=== PATIENT | female | born 1975 | race Caucasian/White ===

== ENCOUNTER 2020-12-29 09:09 | Emergency (ER) | payer SELFPAY ==
--- NOTE | ~2020-12-29 | CT_ITS ---
EXAMINATION: CT abdomen pelvis wo con EXAM DATE: 12/29/2020 10:02 INDICATION: Right flank pain. TECHNIQUE: Spiral CT of the abdomen and pelvis was performed without contrast. Axial, coronal and sag ittal images were reviewed. The dose-length product (DLP) for this examination was 200.36 mGy-cm. T he exposure was tailored according to patient size (auto mA exposure control), and iterative reconstr uction (ASIR) was used as additional dose reduction technique. Comparison is made to prior examinatio n from 07/28/2019. FINDINGS: There is no nephrolithiasis or hydronephrosis. The uterus is unremarkable. The bladder is undistended at time of imaging. The liver, spleen, adrenal glands and pancreas are unremarkable. There are cholecystectomy clips. There is no retroperitoneal or pelvic lymphadenopathy. The appendix is not positively visualized. There is no pericecal inflammatory change to suggest appe ndicitis. The stomach and small bowel are unremarkable. There is expected amount of colonic stool. No free intraperitoneal gas. Small pericardial effusion. The lung bases are unremarkable. Righ t acetabular bone island unchanged. IMPRESSION: 1. No nephrolithiasis, hydronephrosis or acute intra-abdominal findings. 2. Small pericardial effusion. Reviewed, dictated and finalized at location [facility]
[2020-12-29 09:16] VITALS: BP 136/86; PULSE 87; RESP 24; TEMP 36.8; O2SAT 100
[2020-12-29 09:37] LABS: Add Urine Microscopic? YES; Appearance Urine Cloudy (Clear); Bacteria Urine Trace /hpf; Bilirubin Urine Negative (Negative); Blood Urine 3+ (Negative); Color Urine Yellow (Yellow); Glucose Urine UA Negative (Negative); Ketones Urine Negative (Negative); Leukocyte Esterase Ur Trace LEU/UL (Negative); Mucus Urine Heavy /lpf; Nitrate Urine Negative (Negative); Protein Urine 2+ mg/dL (Negative); RBC Urine >75 /hpf (0-2); Specific Grav Ur 1.028 (1.001-1.035); Squamous Epithelial Cell Urine Few /hpf (Few); Urobilinogen Urine Negative mg/dL (<2.0)
[2020-12-29] MEDS: MORPHINE SULFATE (*CRX) 2 MG/ML INJ IV PUSH (09:46)
[2020-12-29 09:47] LABS: Basophils Percent Auto 0.5 % (0.2-1.2); Eosinophils Percent Auto 0.4 % (0-4.4); Hematocrit 40.1 % (37.0-47.0); Hemoglobin 13.3 g/dL (12.0-15.0); Immature Granulocyte Absolute 0.03 K/mm3 (0.00-0.031); Immature Granulocyte Percent A 0.5 % (0-0.5); Lymphocytes Absolute Auto 1.12 K/mm3 (0.9-3.2); Lymphocytes Percent Auto 20.3 % (18.3-44.2); Mean Corpuscular HGB Conc 33.2 g/dl (32-36); Mean Corpuscular Hemoglobin 30.6 pg (26-34); Mean Corpuscular Volume 92.4 fl (80-100); Mean Platelet Volume 9.5 fl (7.4-10.4); Monocytes Absolute Auto 0.3 K/mm3 (0.1-0.6); Monocytes Percent Auto 5.1 % (2.6-8.5); Neutrophils Absolute Auto 4.1 K/mm3 (1.3-6.7); Neutrophils Percent Auto 73.2 % (45.5-73.1); Platelet Count Result 222 k/mm3 (150-375); Red Blood Count 4.34 M/mm3 (4.2-5.4); Red Cell Distribution Width 12.1 % (11.5-14.5); White Blood Count 5.5 K/mm3 (4.5-10.0)
--- NOTE | 2020-12-29 09:50 | PC.NURSE ---
Addendum entered by Keyona Wheat RN 12/29/20 09:52: Instructed pt to get into BED (bad is misspelling) Original Note: Pt refuses IV Tylenol, states I dont like the way that stuff makes me feel. 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 This RN explained Tylenol was for pain and Morphine was also ordered for pt. Pt states I will take the Morphine, not the Tylenol. This RN instructed pt to get in bad as Morphine causes a fall risk due to side effects of narcotic pain medication. Pt states It feels better to stand, are you telling me I have to suffer? This RN reassured pt the medicine is for pain and that she would need to get into the stretcher to receive medication due to fall risk. Pt onto stretcher, states You just need to do something to make me feel better.
[2020-12-29 09:57] LABS: Alanine Aminotransferase 15 U/L (4-35); Albumin Level 4.4 g/dL (3.5-5.1); Alkaline Phosphatase 53 U/L (38-126); Anion Gap 5 mmol/L (8-16); Aspartate Amino Transferase 21 U/L (14-36); Bilirubin,Total 0.3 mg/dL (0.2-1.3); Blood Urea Nitrogen 15 mg/dL (7-17); Calcium 9.2 mg/dL (8.4-10.2); Carbon Dioxide 29 mmol/L (22-30); Chloride 106 mmol/L (98-107); Estimated CRCL calculation 74 ml/min; Estimated Glomerular Filt Rate > 60; Glucose 172 mg/dL (65-105); Lipase 76 U/L (23-300); Potassium 3.8 mmol/L (3.4-5.0); Sodium 140 mmol/L (137-145)
--- NOTE | 2020-12-29 10:40 | ED.GENADULT ---
HPI - General Adult General Chief complaint: Back Pain/Injury Stated complaint: right flank pain x 2 days Time Seen by Provider: 12/29/20 09:19 Source: patient Mode of arrival: ambulatory Limitations: no limitations History of Present Illness HPI narrative: Patient presents with chief complaint of right flank pain that began 2 days ago it became excruciating approximately 1 hour prior to arrival. Patient states she has had is a history of kidney stones which last presented approximately 1 to 2 years ago and required stenting. Patient has not seen a urologist in this area. Patient states that she noticed blood in her urine. Patient denies fever, chills, vomiting or inability to urinate. She denies any concern for STDs. Patient denies any vaginal discharge or bleeding. Related Data Home Medications Medication Instructions Recorded Confirmed albuterol sulfate INHALATION 12/29/20 alprazolam PRN 12/29/20 Allergies Allergy/AdvReac Type Severity Reaction Status Date / Time ketorolac Allergy Severe Stopped Verified 12/29/20 09:22 Breathing metoclopramide Allergy Mild Hives / Verified 12/29/20 09:22 Red Face ondansetron Allergy Mild Hives / Verified 12/29/20 09:22 Red Face aspirin Allergy Unknown Hives Verified 12/29/20 09:22 NSAIDS (Non-Steroidal Allergy Swelling Verified 12/29/20 09:22 Anti-Inflamma of Lip/Tongue/Throat Review of Systems Review of Systems: Narrative: CONSTITUTIONAL: Denies fever, chills, or sweats. EYES: Denies visual changes, redness, or discharge. ENT: Denies rhinorrhea, congestion, sore throat, or otalgia. CARDIOVASCULAR: Denies chest pain, palpitations, or edema. RESPIRATORY: Denies cough or dyspnea. GASTROINTESTINAL: Reports right flank pain, nausea, vomiting, denies diarrhea. GENITOURINARY: Denies dysuria or hematuria. SKIN: Denies rash or itching. MUSCULOSKELETAL: Denies back pain, joint pain, or myalgia. NEUROLOGIC: Denies headache, numbness, dizziness, or weakness. PSYCHIATRIC: Denies anxiety or depression. PMFSH Social History Social History Gender identity (if verbalized by the patient): Female Exam Narrative: Exam Narrative: GENERAL: Well-appearing, well-nourished. Patient writhing around unable to lay down for cooperation with full physical exam. HEAD: Normocephalic, atraumatic. EYES: PERRLA and EOMI. CHEST: Clear to auscultation. No respiratory distress. No wheezes rales or rhonchi HEART: Regular rate and rhythm. ABDOMEN: Right CVA tenderness. soft, nondistended, normal active bowel sounds. Unable to fully palpate quadrants due to patient's writhing. EXTREMITIES: Normal range of motion. No edema. SKIN: Warm, dry, no rash. NEURO: No focal deficits. Alert and oriented x3. PSYCH: Anxious. Course Vital Signs Vital signs: Vital Signs Temperature 98.3 F 12/29/20 09:16 Pulse Rate 87 12/29/20 09:16 Respiratory Rate 24 H 12/29/20 09:16 Blood Pressure 136/86 12/29/20 09:16 Pulse Oximetry 100 12/29/20 09:16 Temperature 98.3 F 12/29/20 09:16 Pulse Rate 91 12/29/20 10:56 Respiratory Rate 22 H 12/29/20 10:56 Blood Pressure 124/88 12/29/20 10:56 Pulse Oximetry 98 12/29/20 10:56 Medical Decision Making MDM Narrative Medical decision making narrative: Patient is lab work and CT has come back negative for findings of kidney stone or other intra-abdominal etiology. Patient has some soft findings of bacteria and blood in the urine. Patient will be placed on Macrobid and instructed to follow-up with primary care for reevaluation. Patient is wanting more pain medications. She has already been given morphine as she states she has a ride home. Patient declined Tylenol stating that it will not work and says she cannot tolerate any NSAIDs. I do not have indication to give patient stronger narcotics. Patient is not happy about this. Discussed with patient the need to take antibiotics and follow-up with primary care. Differential D
--- NOTE | 2020-12-29 10:47 | PC.NURSE ---
While standing in the hallway this RN hears pt call out to the nurses station, stating im not getting the care that I deserve so im gonna go somewhere else. This RN let her know that her nurse was in with another pt she states i don't care, im hurting I stated ma'am you refused medication that your nurse offered you earlier. she states im not talking to you
[2020-12-29 10:56] VITALS: BP 124/88; PULSE 91; RESP 22; O2SAT 98
== END 2020-12-29 10:57 | disposition home or self-care (01) ==
PROVIDERS: Emergency Provider Emergency Medicine
DX: R10.9 Unspecified abdominal pain (principal); R30.0 Dysuria; Z87.442 Personal history of urinary calculi
CPT/HCPCS: 36415; 74176; 80053; 81001; 83690; 85025; 87086; 96374; 99284; J2270

== ENCOUNTER 2021-02-17 11:14 | Emergency (ER) | payer OTHER, SELFPAY ==
[2021-02-17 11:15] VITALS: BP 145/101; PULSE 53; RESP 17; TEMP 36.7; O2SAT 97
--- NOTE | 2021-02-17 11:15 | ED.ABDPAIN ---
HPI - Abdominal Pain General Chief Complaint: Back Pain/Injury Stated Complaint: abdomen pain Time Seen by Provider: 02/17/21 11:15 Source: patient and RN notes reviewed Mode of arrival: ambulatory Limitations: no limitations History of Present Illness HPI narrative: Patient states that she began having abdominal pain 3 hours ago. She says that she is highly allergic to Toradol Zofran and Reglan. She also states she has a very high tolerance to morphine so it takes a lot of morphine to get her pain under control. She says her pain is in the right lower quadrant she thinks she has a kidney stone. MD elicited complaint: abdominal pain Pertinent past history: none Onset (ago): hour(s) (3) Pain Consistency: constant Location: RLQ Severity: severe Quality: cramping and stabbing Radiation: none Migration to: no migration Exacerbating factors: movement Relieving factors: nothing Associated symptoms: nausea, vomiting and chills Related Data Home Medications Medication Instructions Recorded Confirmed albuterol sulfate INHALATION 12/29/20 alprazolam PRN 12/29/20 dextroamphetamine-amphetamine 30 mg PO DAILY 02/17/21 02/17/21 [Adderall] Allergies Allergy/AdvReac Type Severity Reaction Status Date / Time ketorolac Allergy Severe Stopped Verified 12/29/20 09:22 Breathing metoclopramide Allergy Mild Hives / Verified 12/29/20 09:22 Red Face ondansetron Allergy Mild Hives / Verified 12/29/20 09:22 Red Face aspirin Allergy Unknown Hives Verified 12/29/20 09:22 NSAIDS (Non-Steroidal Allergy Swelling Verified 12/29/20 09:22 Anti-Inflamma of Lip/Tongue/Throat Review of Systems Review of Systems: All systems reviewed & are unremarkable except as noted in HPI and below PMFSH Past Medical History Medical History (Updated 02/17/21 @ 11:51 by Nemesio Rouse MD) ADHD Asthma Kidney stones PTSD (post-traumatic stress disorder) Surgical History Surgical History (Updated 02/17/21 @ 11:47 by Nemesio Rouse MD) H/O bilateral oophorectomy History of appendectomy Hx of cholecystectomy Social History Social History (Updated 02/17/21 @ 11:47 by Nemesio Rouse MD) Smoking packs per day: 0.5 Smoking cigarettes per day: 10.0 Smoking status: Current every day smoker Tobacco type: cigarettes Alcohol intake: never Substance use: current Substance use type: marijuana Other substance usage details: occasional denies any other substance Gender identity (if verbalized by the patient): Female Exam Const: General: no acute distress Nutritional Appearance: well nourished Orientation/consciousness: patient oriented x3 HENMT: Head: normal to inspection Ears: external ears normal Eyes: Conjunctivae: conjunctivae normal Pupils: Equal, round and reactive pupils present EOM: EOMs intact bilaterally Neck: Neck: normal visual inspection and no lymphadenopathy Resp: Effort & Inspection: normal respiratory effort Auscultation: clear to auscultation bilaterally Cardio: Rate: regular rate Rhythm: regular rhythm GI: GI Palp: Yes Soft to palpation, Yes Tenderness to palpation present (GI) ( RLQ moderate), Yes Guarding due to palpation present (GI) and No Rebound tenderness present Auscultation: normal bowel sounds Back/Spine/Pelvis: Cervical Spine: cervical ROM normal Thoracic/Lumbar Spine: thoraco-lumbar ROM normal Skin: General skin exam: normal color Rashes: no rashes Neuro: General: patient oriented x3, moves all extremities, no meningeal signs and no focal motor deficits Speech: normal speech Gait exam (Neuro): Normal gait present Extrem: General: normal to inspection, no clubbing, cyanosis or edema and no pedal edema Psych: Appearance: grossly normal and well kempt Mental Status: mental status grossly normal Affect: normal affect Attitude: cooperative Thought content: Yes Normal thought content present Course Course Emergency Course: I explained to the patient nancy
[2021-02-17 11:48] LABS: Basophils Absolute Auto 0.04 K/mm3 (0.00-0.10); Basophils Percent Auto 0.7 % (0.0-1.0); Eosinophils Percent Auto 1.9 % (1.0-6.0); Hematocrit 38.8 % (35.0-49.0); Hemoglobin 12.8 g/dL (12.0-15.0); Immature Granulocyte Absolute 0.01 K/mm3 (0.00-0.00); Immature Granulocyte Percent A 0.2 % (0.0-0.0); Lymphocytes Absolute Auto 2.07 K/mm3 (1.10-4.50); Lymphocytes Percent Auto 38.8 % (18.0-42.0); Mean Corpuscular Hemoglobin 30.3 pg (27.0-31.0); Mean Corpuscular Volume 91.9 fL (78.0-102.0); Mean Platelet Volume 9.3 fl (9.2-11.8); Monocytes Absolute Auto 0.41 K/mm3 (0.10-0.90); Monocytes Percent Auto 7.7 % (2.0-11.0); Neutrophils Absolute Auto 2.7 K/mm3 (1.7-7.2); Neutrophils Percent Auto 50.7 % (50.0-70.0); Platelet Count Result 241 K/mm3 (150-420); Red Blood Count 4.22 M/mm3 (4.20-5.40); Red Cell Distribution Width 12.1 % (11.6-14.4); White Blood Count 5.3 K/mm3 (4.8-10.8)
[2021-02-17 11:52] LABS: Add Urine Microscopic? YES; Appearance Urine Sl Cloudy (Clear); Bilirubin Urine Negative (Negative); Blood Urine 3+ (Negative); Color Urine Red (Yellow); Glucose Urine UA Negative (Negative); Ketones Urine Negative (Negative); Leukocyte Esterase Ur Trace LEU/UL (Negative); Nitrate Urine Negative (Negative); Protein Urine 1+ (Negative); Specific Grav Ur 1.015 (1.010-1.020); Urobilinogen Urine 0.2 mg/dL (0.2-1.0); pH Urine 5.5 (5.0-8.0)
[2021-02-17 11:55] LABS: Bacteria Urine Trace /hpf; RBC Urine >75 /hpf (0-2); Squamous Epithelial Cell Urine Rare /hpf (Few); WBC Urine None seen /hpf (0-3)
[2021-02-17 11:57] LABS: Alanine Aminotransferase 40 U/L (14-59); Albumin Level 4.1 g/dL (3.4-5.0); Alkaline Phosphatase 78 U/L (46-116); Anion Gap 7 mmol/L (8-16); Aspartate Amino Transferase 32 U/L (15-37); Bilirubin,Total 0.4 mg/dL (0.00-1.00); Blood Urea Nitrogen 13 mg/dL (7-18); Calcium 9.4 mg/dL (8.5-10.1); Carbon Dioxide 28 mmol/L (21-32); Chloride 101 mmol/L (98-108); Estimated Glomerular Filt Rate > 60; Glucose 91 mg/dL (70-99); Osmolality Calculated 282 mOsm/kg (285-295); Sodium 136 mmol/L (136-145)
[2021-02-17 12:00] LABS: Amphetamine Screen Urine Positive (Negative); Barbiturate Screen Urine Negative (Negative); Benzodiazepines Screen Urine Positive (Negative); Cannabinoid Screen Urine Positive (Negative); Cocaine Screen Urine Negative (Negative); Methadone Screen Urine Negative (Negative); Opiate Screen Urine Positive (Negative); Phencyclidine Screen Urine Negative (Negative)
[2021-02-17 12:01] LABS: CRP < 0.5 mg/dL (0.0-0.9)
== END 2021-02-17 11:40 | disposition left against medical advice (07) ==
PROVIDERS: Emergency Provider Emergency Medicine
DX: R10.31 Right lower quadrant pain (principal); Z79.899 Other long term (current) drug therapy
CPT/HCPCS: 36415; 80053; 80307; 81001; 85025; 86140; 99282; 99283

== ENCOUNTER 2021-02-17 12:17 | Emergency (ER) | payer OTHER, SELFPAY | END 2021-02-17 12:20 | disposition left against medical advice (07) | LOC: ANHED 12:24 | DX: Z53.21 Procedure and treatment not carried out due to patient leaving prior to being seen by health care provider (principal) | CPT/HCPCS: 99199 ==

== ENCOUNTER 2021-07-10 08:55 | Emergency (ER) | payer SELFPAY ==
--- NOTE | ~2021-07-10 | CT_ITS ---
EXAMINATION: CT abdomen pelvis wo con DATE: 07/10/2021 10:44 INDICATION: Right flank pain TECHNIQUE: Computed tomography (CT) of the abdomen and pelvis was performed without intravenous contr ast. The dose-length product (DLP) was 277.50 mGy-cm. Automated exposure control and iterative recons truction technique were employed. COMPARISON: 12/29/2020 FINDINGS: Minimal dependent atelectasis is present in the lung bases. The heart size is normal. The g allbladder is surgically absent. The liver, spleen, pancreas, and adrenal glands are normal. The kidn eys are unremarkable. No stones are identified in the kidneys, ureters, or bladder. There is no hydro nephrosis or hydroureter. No pathologically enlarged abdominal or pelvic lymph nodes are identified. There is no free intraperitoneal gas or evidence of bowel obstruction. The appendix is not definitely visualized. A small amount of free fluid in the pelvis is likely physiologic. IMPRESSION: 1. No CT correlate for the patient's symptoms. Reviewed, dictated and finalized at location A.
[2021-07-10 09:33] VITALS: BP 136/76; PULSE 79; RESP 18; TEMP 36.3; O2SAT 97
--- NOTE | 2021-07-10 09:35 | ED.GENADULT ---
HPI - General Adult General Chief complaint: Back Pain/Injury Stated complaint: THINKS SHE HAS KIDNEY STONES Source: patient Mode of arrival: ambulatory Limitations: no limitations History of Present Illness HPI narrative: Vanessa is a 45F with a PMH of ADHD, Asthma, PTSD, and kidney stones (some requiring lithotripsy), anaphylaxis to NSAIDS and zofran, and a history of leaving AMA when refused pain meds. She reported right sided flank pain radiating to her RLQ. It started a few hours ago. It is associated with nausea and a couple episodes of non-bloody vomiting. She denies CP, SOB, lightheadedness, diarrhea and constipation. Related Data Home Medications Medication Instructions Recorded Confirmed albuterol sulfate 1 puff INHALATION QID 12/29/20 07/10/21 alprazolam 1 mg PO TID PRN 12/29/20 07/10/21 Allergies Allergy/AdvReac Type Severity Reaction Status Date / Time ketorolac Allergy Severe Stopped Verified 12/29/20 09:22 Breathing metoclopramide Allergy Mild Hives / Verified 12/29/20 09:22 Red Face ondansetron Allergy Mild Hives / Verified 12/29/20 09:22 Red Face aspirin Allergy Unknown Hives Verified 12/29/20 09:22 NSAIDS (Non-Steroidal Allergy Swelling Verified 12/29/20 09:22 Anti-Inflamma of Lip/Tongue/Throat Review of Systems Constitutional: Constitutional: Denies chills and Denies fever(s) Eyes: Eyes: Reports no additional eye complaints ENT: Reports system reviewed and no additional complaints, except as documented Cardiovascular: Cardiovascular: Reports no additional cardiovascular complaints Respiratory: Respiratory: Reports no additional respiratory complaints Gastrointestinal: Gastrointestinal: Reports as per HPI Genitourinary: Genitourinary: Reports no additional female genitourinary complaints Musculoskeletal: Musculoskeletal: Reports no additional musculoskeletal complaints Integumentary/Breasts: Skin/Breast: Reports system reviewed and no additional complaints, except as docu Neurologic: Reports system reviewed and no additional complaints, except as documented Psychiatric: Psychiatric: Reports no additional psychiatric complaints Endocrine: Endocrine: Reports no additional endocrine complaints Hematologic/Lymphatic: Hematologic/Lymphatic: Reports no additional hematologic/lymphatic complaints Allergic/Immunologic: Allergic/Immunologic: Reports no additional allergic/immunologic complaints [facility] Past Medical History Medical History ADHD Asthma Kidney stones PTSD (post-traumatic stress disorder) Surgical History Surgical History H/O bilateral oophorectomy History of appendectomy Hx of cholecystectomy Social History Social History Smoking packs per day: 0.5 Smoking cigarettes per day: 10.0 Smoking status: Current every day smoker Tobacco type: cigarettes Alcohol intake: never Substance use: current Substance use type: marijuana Other substance usage details: occasional denies any other substance Gender identity (if verbalized by the patient): Female Exam Const: General: no acute distress and alert Orientation/consciousness: patient oriented x3 Limitations: No altered mental status HENMT: Head: normal to inspection Other: normocephalic, atraumatic Eyes: Conjunctivae: conjunctivae normal Pupils: Equal, round and reactive pupils present Neck: Neck: normal visual inspection Chest: Chest palpation & inspection: normal inspection of the chest Resp: Effort & Inspection: normal respiratory effort, not labored and not tachypneic Auscultation: clear to auscultation bilaterally Cardio: Rate: regular rate Rhythm: regular rhythm GI: Inspection: non-distended GI Palp: Yes Soft to palpation, No Tenderness to palpation present (GI) and No Guarding due to palpation prese
[2021-07-10] MEDS: diphenhydrAMINE HCl INJ 50 MG/ML VIAL IV PUSH (09:50)
--- NOTE | 2021-07-10 09:55 | PC.NURSE ---
PT REFUSES PAIN MEDICATION AND STATES IT DOES NOT WORK BECAUSE SHE HAS HAD IT BEFORE. PT REQUESTING SOMETHING DIFFERENT FOR PAIN. EDP AWARE.
[2021-07-10 10:01] LABS: Hematocrit 40.1 % (35.0-49.0); Hemoglobin 12.8 g/dL (12.0-15.0); Mean Corpuscular HGB Conc 31.9 g/dL (32.0-36.0); Mean Corpuscular Hemoglobin 30.3 pg (27.0-31.0); Mean Corpuscular Volume 94.8 fL (78.0-102.0); Mean Platelet Volume 8.9 fl (9.2-11.8); Platelet Count Result 245 K/mm3 (150-420); Red Blood Count 4.23 M/mm3 (4.20-5.40); White Blood Count 3.9 K/mm3 (4.8-10.8)
--- NOTE | 2021-07-10 10:07 | PC.NURSE ---
Pt to nurses desk stating the she is not going to be able to lay down for a cat scan until we give her something else for pain.
[2021-07-10 10:08] LABS: Add Urine Microscopic? YES; Appearance Urine Cloudy (Clear); Bilirubin Urine Negative (Negative); Blood Urine 3+ (Negative); Color Urine Red (Yellow); Glucose Urine UA Negative (Negative); Ketones Urine Negative (Negative); Leukocyte Esterase Ur Negative (Negative); Nitrate Urine Negative (Negative); Protein Urine 1+ (Negative); Specific Grav Ur 1.025 (1.010-1.020); Urobilinogen Urine 0.2 mg/dL (0.2-1.0); pH Urine 6.5 (5.0-8.0)
[2021-07-10 10:14] LABS: Prothrombin Time 10.3 Seconds (9.50-12.10)
[2021-07-10 10:16] LABS: Alanine Aminotransferase 39 U/L (14-59); Albumin Level 3.8 g/dL (3.4-5.0); Alkaline Phosphatase 81 U/L (46-116); Anion Gap 8 mmol/L (8-16); Aspartate Amino Transferase 26 U/L (15-37); Bilirubin,Total 0.3 mg/dL (0.00-1.00); Blood Urea Nitrogen 13 mg/dL (7-18); Calcium 9.1 mg/dL (8.5-10.1); Carbon Dioxide 30 mmol/L (21-32); Chloride 104 mmol/L (98-108); Estimated CRCL calculation 74 ml/min; Estimated Glomerular Filt Rate > 60; Glucose 90 mg/dL (70-99); Lipase 47 U/L (73-393); Osmolality Calculated 294 mOsm/kg (285-295); Potassium 4.7 mmol/L (3.5-5.1); Sodium 142 mmol/L (136-145); Total Protein 7.1 g/dL (6.4-8.2)
[2021-07-10 10:16] LABS: Amphetamine Screen Urine Negative (Negative); Barbiturate Screen Urine Negative (Negative); Benzodiazepines Screen Urine Negative (Negative); Cannabinoid Screen Urine Positive (Negative); Cocaine Screen Urine Negative (Negative); Methadone Screen Urine Negative (Negative); Opiate Screen Urine Negative (Negative); Phencyclidine Screen Urine Negative (Negative); RBC Urine >75 /hpf (0-2)
[2021-07-10 10:17] LABS: Bacteria Urine 1+ /hpf; Squamous Epithelial Cell Urine Rare /hpf (Few); WBC Urine 0-3 /hpf (0-3)
[2021-07-10 10:18] LABS: Pregnancy On Board Control Positive; Urine Pregnancy Test Negative
[2021-07-10] MEDS: MORPHINE SULFATE (*CRX) 4 MG/ML INJ IV PUSH (10:32)
[2021-07-10 10:35] LABS: Band Neutrophils Percent 0 % (0-6); Basophils Percent Manual 0 % (0-1); Eosinophils Absolute Manual 0.07 K/mm3 (0.02-0.5); Eosinophils Percent Manual 2 % (1-6); Lymphocytes Absolute Manual 1.36 K/mm3 (1.1-4.5); Lymphocytes Percent Manual 35 % (18-44); Monocytes Absolute Manual 0.19 K/mm3 (0.1-0.90); Monocytes Percent Manual 5 % (3-9); Neutrophils Absolute Manual 2.26 K/mm3 (1.7-7.2); Neutrophils Percent Manual 58 % (46-73); Total Cells Counted 100
[2021-07-10 10:36] LABS: Platelet Estimate Adequate (Adequate)
--- NOTE | 2021-07-10 11:00 | PC.NURSE ---
Pt states that the morphine we gave her is not working, pt offered bentyl, pt states that doesn't work for her either. pt requesting dilaudid. Pt then states she wants her iv out and she would like to leave. attempted to explain risks of leaving, pt refuses to sign ama form or have vital signs rechecked. edp aware. iv removed, pt left department and states that we are not doing anything for her.
== END 2021-07-10 11:05 | disposition left against medical advice (07) ==
PROVIDERS: Emergency Provider Family Medicine
DX: R10.9 Unspecified abdominal pain (principal)
CPT/HCPCS: 36415; 74176; 80053; 80307; 81001; 81025; 83690; 85025; 85610; 96374; 96375; 99283; 99284; J1200; J2270

== ENCOUNTER 2021-08-05 20:18 | Emergency (ER) | payer SELFPAY ==
[2021-08-05 20:40] VITALS: BP 144/58; PULSE 80; RESP 16; TEMP 36.9; O2SAT 96
--- NOTE | 2021-08-05 20:43 | PC.NURSE ---
Pt refusing to have blood drawn in triage at this time unless we place an IV. Patient told that we cant place an IV until she is back in a room. Pt states I understand but i'm a hard stick. Pt told that its up to her and she can wait until she is in a room but that will delay her lab results. Pt states well i might just go somewhere else then. Pt walked back to waiting room.
--- NOTE | 2021-08-05 20:51 | PC.NURSE ---
Addendum entered by Néstor Katz RN 08/05/21 21:18: Pt advised to return to ED if her symptoms persist and she is unable to receive care elsewhere. Original Note: Pt came to the desk saying she was not going to be able to wait with the amount of pain she was in. Pt is A&Ox4 and walked out with steady gait at this time.
== END 2021-08-06 04:21 | disposition left against medical advice (07) ==
LOC: ANHED 21:00
DX: K92.0 Hematemesis (principal)
CPT/HCPCS: 99199

== ENCOUNTER 2023-06-29 08:42 | Observation (INO) | payer MEDICAID, SELFPAY ==
--- NOTE | ~2023-06-29 | CT_ITS ---
EXAMINATION: CTA chest PE protocol DATE: 06/30/2023 16:48 INDICATION: Hematemesis. TECHNIQUE: Computed tomography angiography (CTA) of the chest was performed with 100 mL Omnipaque-350 intravenous contrast timed to evaluate the pulmonary arteries. Coronal maximum intensity projection 3D-reconstructions were created by the technologist. Automated exposure control and iterative reconst ruction technique were employed. The dose-length product was 211.63 mGy-cm. COMPARISON: CT abdomen and pelvis 06/29/23, chest CT 10/12/2014 FINDINGS: The lungs demonstrate mild atelectasis. No pleural effusion. The heart size. No pericardial effusion. There is no pulmonary embolus. There are changes of cholecystectomy. Median sternotomy wir es are noted. There are old healed bilateral rib fractures. There is mild thoracic spondylosis. There are chronic fractures of many vertebral bodies. IMPRESSION: 1. No pulmonary embolus. Reviewed, dictated and finalized at location E. IMPRESSION: 1. No pulmonary embolus.
--- NOTE | ~2023-06-29 | XR_ITS ---
EXAMINATION: XR chest 2V DATE: 06/29/2023 11:17 INDICATION: Cough TECHNIQUE: Frontal and lateral views of the chest are obtained COMPARISON: None available FINDINGS: There are minimal airspace opacities of the left lung base. No pleural effusion or pneumoth orax. The heart size is normal. Median sternotomy wires are consistent with prior cardiac surgery. He aled right-sided rib fractures are noted. There is mild thoracic spondylosis. There is antegrade intr amedullary rona and interlocking intratrochanteric screw fixation of the left humerus. IMPRESSION: 1. Left basilar airspace opacity, consistent with atelectasis versus pneumonia. Reviewed, dictated and finalized at location B.
--- NOTE | ~2023-06-29 | CT_ITS ---
EXAMINATION: CT abdomen pelvis w con DATE: 06/29/2023 11:10 INDICATION: Right flank pain. TECHNIQUE: Computed tomography (CT) of the abdomen and pelvis was performed with 100 mL Omnipaque 350 intravenous contrast. Automated exposure control and iterative reconstruction technique were employe d. The dose-length product was 218.47 mGy-cm. COMPARISON: CT abdomen and pelvis 07/10/2021 FINDINGS: The visualized portions of the lung bases demonstrate mild atelectasis. No pleural effusion . The heart size is normal. No pericardial effusion. The liver is normal. There are changes of cholec ystectomy. The spleen is absent. There is a small splenule in left upper quadrant. There is incomplet e pancreas divisum. The adrenal glands and kidneys are normal. There are no dilated loops of bowel. T he appendix is not visualized. There are no pathologically enlarged lymph nodes. There is no free int raperitoneal fluid. There are old healed fractures of the superior and inferior pubic rami bilaterall y. There is mild thoracic and lumbar spondylosis. Thoracolumbar levoscoliosis is noted. There are chr onic burst fractures of the superior endplates of L1 and L2. There is a chronic compression fracture of L3. There are old healed rib fractures bilaterally. IMPRESSION: 1. No etiology for the patient's symptoms. Reviewed, dictated and finalized at location A.
[2023-06-29 09:00] VITALS: BP 110/83; PULSE 86; RESP 17; TEMP 36.3; O2SAT 98
[2023-06-29 09:16] LABS: Basophils Percent Auto 0.4 % (0.2-1.2); Eosinophils Absolute Auto 0.1 K/mm3 (0-0.3); Eosinophils Percent Auto 1.4 % (0-4.4); Hematocrit 40.5 % (37.0-47.0); Immature Granulocyte Absolute 0.04 K/mm3 (0.00-0.031); Immature Granulocyte Percent A 0.4 % (0-0.5); Lymphocytes Absolute Auto 2.92 K/mm3 (0.9-3.2); Lymphocytes Percent Auto 28.3 % (18.3-44.2); Mean Corpuscular HGB Conc 32.1 g/dl (32-36); Mean Corpuscular Hemoglobin 30.3 pg (26-34); Mean Corpuscular Volume 94.4 fl (80-100); Mean Platelet Volume 9.1 fl (7.4-10.4); Monocytes Absolute Auto 1.1 K/mm3 (0.1-0.6); Monocytes Percent Auto 10.7 % (2.6-8.5); Neutrophils Absolute Auto 6.1 K/mm3 (1.3-6.7); Neutrophils Percent Auto 58.8 % (45.5-73.1); Platelet Count Result 495 k/mm3 (150-375); Red Blood Count 4.29 M/mm3 (4.2-5.4); White Blood Count 10.3 K/mm3 (4.5-10.0)
[2023-06-29 09:26] LABS: Alanine Aminotransferase 34 U/L (6-35); Albumin Level 4.6 g/dL (3.5-5.1); Alkaline Phosphatase 54 U/L (38-126); Anion Gap 5 mmol/L (8-16); Aspartate Amino Transferase 30 U/L (14-36); Bilirubin,Total 0.5 mg/dL (0.2-1.3); Blood Urea Nitrogen 17 mg/dL (7-17); Calcium 9.2 mg/dL (8.4-10.2); Carbon Dioxide 27 mmol/L (22-30); Chloride 106 mmol/L (98-107); Estimated CRCL calculation 98 ml/min; Estimated Glomerular Filt Rate > 60; Glucose 91 mg/dL (65-110); Lipase 43 U/L (23-300); Potassium 4.2 mmol/L (3.4-5.0); Sodium 138 mmol/L (137-145)
[2023-06-29 09:35] LABS: Bacteria Urine 1+ /hpf; Non Pathogenic Casts 0-2; RBC Urine >100 /hpf (0-2); Squamous Epithelial Cell Urine None seen /hpf (Few)
[2023-06-29 09:55] LABS: Appearance Urine Turbid (Clear); Bilirubin Urine 1+ (Negative); Blood Urine 3+ (Negative); Color Urine Orange (Yellow); Glucose Urine UA Negative (Negative); Ketones Urine Negative (Negative); Leukocyte Esterase Ur 1+ LEU/UL (Negative); Nitrate Urine Negative (Negative); Protein Urine 1+ mg/dL (Negative); Specific Grav Ur 1.023 (1.001-1.035); Urobilinogen Urine 0.2 mg/dL (<2.0)
[2023-06-29 10:08] LABS: Add Urine Microscopic? YES
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
[2023-06-29] MEDS: MORPHINE SULFATE (*CRX) 4 MG/ML INJ IV PUSH (10:36)
[2023-06-29] MEDS: SCOPOLAMINE 1.5 MG PATCH TRANSDERM (10:36)
[2023-06-29] MEDS: SODIUM CHLORIDE 0.9% IV 1,000 ML 999 ML IV CONT ×2 (10:37→13:20)
[2023-06-29] MEDS: HYDROmorphone HCL INJ (*CRX) 1 MG/ML SYR 0.5 MG IV PUSH ×2 (10:59→11:40)
[2023-06-29 11:42] VITALS: BP 125/69; PULSE 77; RESP 18; O2SAT 99
--- NOTE | 2023-06-29 11:54 | ECG_ITS ---
Measurements Intervals [place] Rate: 76 P: 71 WI: 156 QRS: 71 QRSD: 85 T: 58 QT: 370 QTc: 418 Interpretive Statements SINUS RHYTHM BASELINE ARTIFACT- I, II, III, AVR, AVL, AVF, V1, V3 NORMAL ECG NO PREVIOUS ECG AVAILABLE FOR COMPARISON Electronically Signed On 06-29-2023 13:48:22 CDT by Aidan Meeks D.O.
[2023-06-29] MEDS: diphenhydrAMINE HCl INJ 50 MG/ML VIAL 25 MG IV PUSH (12:44)
[2023-06-29] MEDS: LORazepam INJ (*CRX) 2 MG/ML VIAL (12:49)
--- NOTE | 2023-06-29 12:57 | PC.NURSE ---
1225 Pt called out stating I felt a pop and I'm vomiting blood. Pt had celi blood in emesis bag. Pt refusing EKG. EDP notified of pt emesis and pop 1230- NG tube ordered, pt educated on importance of NG tube and EKG. Pt refusing to sit down. EDP notified of pt refusal. Pt refused haldol, agreeable to benadryl IV. Pt requesting phenergan at this time.
--- NOTE | 2023-06-29 13:03 | PC.NURSE ---
1250-Pt requesting more pain medication, EDP aware
[2023-06-29] MEDS: PROMETHAZINE HCL 25 MG/ML AMPUL 12.5 MG IV PUSH (13:19)
[2023-06-29] MEDS: HYDROmorphone HCL INJ (*CRX) 1 MG/ML SYR 0.5 MG IM (13:19)
[2023-06-29 13:45] VITALS: BP 109/75; PULSE 75; RESP 14; O2SAT 98
[2023-06-29 13:48] LABS: INR 0.9; Prothrombin Time 13.1 Seconds (11.1-14.7)
[2023-06-29 13:49] LABS: Partial Thromboplastin Time 27.2 SECONDS (22.3-36.8)
[2023-06-29] MEDS: AZITHROMYCIN 500 MG/NS 250 ML 500 MG/250 ML BAG 250 MG IVPB (13:54)
[2023-06-29] MEDS: HYDROmorphone HCL INJ (*CRX) 1 MG/ML SYR (14:10)
[2023-06-29] MEDS: PANTOPRAZOLE SODIUM IV 40 MG VIAL 80 MG IV PUSH (14:10)
[2023-06-29 14:19] LABS: Influenza A QL RT-PCR Negative (Negative); Influenza B QL RT-PCR Negative (Negative); SARS-CoV-2 RNA PCR Positive (Negative)
--- NOTE | 2023-06-29 14:26 | PC.NURSE ---
Multiple attempts at NG tube placement
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
[2023-06-29] MEDS: PANTOPRAZOLE SODIUM IV 80 MG in SODIUM CHLORIDE 0.9% IV 500 ML 50 MG IV CONT (14:59)
[2023-06-29] MEDS: HYDROmorphone HCL INJ (*CRX) 1 MG/ML SYR IV PUSH ×4 (15:31→23:07)
--- NOTE | 2023-06-29 16:09 | PC.NURSE ---
patient requesting pain medications. discussed with PULMONARY SPECIALIST. order for PRN norco is ordered. patient refused PO pain medication at this time. provider aware
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
--- NOTE | 2023-06-29 16:40 | PC.NURSE ---
pt unhappy about lack of IV Dilaudid, pt asking for more medications, was informed that she refused pain meds by mouth, and continues to do so.
--- NOTE | 2023-06-29 16:59 | PC.NURSE ---
patient requesting IV pain medication. discussed with shaji and jerel to start q3h PRN dilaudid at this time
--- NOTE | 2023-06-29 18:15 | PC.NURSE ---
patient refuses to stay connected to vital signs or to sit in bed. no vital signs charted on journalists and other writers's shift
--- NOTE | 2023-06-29 18:38 | ADMGEN ---
This patient, Vanessa Benson, was admitted to Virtual Bed 3rd Floor-3. Patient/family oriented to hospital policies and general routines including ID bracelet, bed and alarms, visiting hours, pain management, procedures, bathroom and other care routines, personal items, smoking policy, room service/diet, and visiting hours. Information on how to activate the Rapid Response Team has been discussed. Patient/Family are encouraged to report perceived risks to care and to ask questions if they do not understand what they are told or what they should do.
[2023-06-29 18:55] VITALS: BP 108/88; PULSE 99; RESP 17; TEMP 36.4; O2SAT 99
[2023-06-29] MEDS: SODIUM CHLORIDE 0.9% IV 1,000 ML 75 ML IV CONT (20:16)
--- NOTE | 2023-06-29 21:03 | PC.NURSE ---
Patient requesting dilaudid frequency be changed from q3h to q2h. Dr. Ross does not want to increase frequency and use PRN norco to manage pain. Patient aware and refuses norco at this time.
[2023-06-29] MEDS: ALPRAZolam (*CRX) 0.5 MG TABLET 1 MG PO (21:40)
[2023-06-29 22:05] VITALS: BP 105/45; PULSE 72; RESP 18; TEMP 36; O2SAT 97
[2023-06-30] VITALS (11 sets, daily range): BP systolic 82–122; BP diastolic 44–78; PULSE 55–88; RESP 16–20; TEMP 36–37.1; O2SAT 96–99; BMI 21.2
[2023-06-30] MEDS: PANTOPRAZOLE SODIUM IV 80 MG in SODIUM CHLORIDE 0.9% IV 500 ML 50 MG IV CONT ×2 (00:10→14:06)
[2023-06-30] MEDS: HYDROmorphone HCL INJ (*CRX) 1 MG/ML SYR IV PUSH ×6 (02:08→17:09)
[2023-06-30 05:36] LABS: Hematocrit 32.7 % (37.0-47.0); Hemoglobin 10.6 g/dL (12.0-15.0); Mean Corpuscular HGB Conc 32.4 g/dl (32-36); Mean Corpuscular Volume 95.6 fl (80-100); Mean Platelet Volume 9.3 fl (7.4-10.4); Platelet Count Result 434 k/mm3 (150-375); Red Blood Count 3.42 M/mm3 (4.2-5.4); Red Cell Distribution Width 13.1 % (11.5-14.5); White Blood Count 7.9 K/mm3 (4.5-10.0)
[2023-06-30 05:51] LABS: Anion Gap 2 mmol/L (8-16); Blood Urea Nitrogen 10 mg/dL (7-17); Calcium 8.1 mg/dL (8.4-10.2); Carbon Dioxide 27 mmol/L (22-30); Chloride 109 mmol/L (98-107); Estimated CRCL calculation 119 ml/min; Estimated Glomerular Filt Rate > 60; Glucose 84 mg/dL (65-110); Magnesium 2.2 mg/dL (1.6-2.3); Sodium 138 mmol/L (137-145)
[2023-06-30] MEDS: ALBUTEROL SULFATE (*SP) AEROSOL 1 PUFF INHALATION ×3 (07:56→16:09)
[2023-06-30] MEDS: ALPRAZolam (*CRX) 0.5 MG TABLET 1 MG PO ×4 (08:08→23:20)
[2023-06-30] MEDS: SODIUM CHLORIDE 0.9% IV 1,000 ML 75 ML IV CONT ×2 (11:05→23:20)
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
[2023-06-30] MEDS: DOCOSANOL 10% CREAM 2 GM 1 APPLIC TOPICAL ×3 (14:08→20:21)
[2023-06-30] MEDS: LACTATED RINGERS 1,000 ML 150 ML IV CONT (14:44)
--- NOTE | 2023-06-30 16:51 | PM.IMPN ---
Progress Note: A&P Assessment and Plan (1) Right flank pain: Code(s): R10.9 - Unspecified abdominal pain Status: Acute Assessment and Plan: history of kidney stones, no stone or hydronephrosis on imaging. patient complains unrelenting recurrent pain and is constantly asking pain meds (2) Hematemesis of fresh blood: Code(s): K92.0 - Hematemesis Status: Acute Assessment and Plan: EGD is negative. Possibly hemoptysis instead. CTA pending (3) COVID: Code(s): U07.1 - COVID-19 Status: Acute Assessment and Plan: symptoms started on 06/17. Isolation cleared by infection control. (4) Pneumonia: Qualifiers: Laterality: left Lung location: lower lobe of lung Pneumonia type: due to unspecified organism Qualified Code(s): J18.9 - Pneumonia, unspecified organism Code(s): J18.9 - Pneumonia, unspecified organism Status: Acute Assessment and Plan: questionable atelectasis versus pneumonia. Patient is asplenic. Empiric antibiotics have been initiated. Await report of CTA. Plan Pain control, of though I do not think patient will ever agree that her pain is under control Repeat labs in morning, consider urology consult as patient states she has had stones that do not show up on imaging. Likely discharge tomorrow Time Spent With Patient Time with patient: 25 - 35 minutes Subjective Date/time seen: 06/30/23 15:00 Interval history: Patient reports right flank pain and nausea as well as anxiety. Patient requiring large amounts pain medication frequently asking for more than she is prescribed. Patient had hematemesis and positive COVID diagnosis possible pneumonia or atelectasis on chest x-ray. Patient went for EGD which was negative. RN was concerned patient might be having hemoptysis instead of hematemesis. Given recent COVID diagnosis and possible hemoptysis, ordered CTA of the chest to look for PE. Review of Systems Review of Systems: All systems reviewed & are unremarkable except as noted in HPI and below Exam Narrative: General: chronically ill-appearing female and discomfort, frequently moving around in attempts to find a comfortable position. HEENT: PERRL, EOMI. Sclera anicteric. Tacky mucous membranes. Neck: Supple. Old tracheostomy scar. Respiratory: Respirations are nonlabored and she is speaking in full sentences. Occasional cough. lung sounds clear Chest: Sternotomy scar noted. Cardiovascular: Regular rate and rhythm with S1-S2. Gastrointestinal: Abdomen is soft and nondistended with positive bowel sounds. She is tender to palpation over the right flank. Midline abdominal scar noted. Skin: Warm and dry. Extremities: No cyanosis, clubbing, or edema. Radial and pedal pulses intact. Neurological: Alert. Cranial nerves 2-12 are grossly intact. No gross focal deficits to casual conversation. Psychiatric: Pleasant and cooperative with appropriate mood and affect. Objective Data Vital Signs Vital Signs: Vital Signs - 24 hr 06/29/23 18:55 06/29/23 22:05 06/30/23 07:46 Temperature 36.4 C 36.0 C L Pulse Rate 99 72 88 Respiratory Rate 17 18 20 Blood Pressure 108/88 105/45 L Pulse Oximetry 99 97 Oxygen Delivery Oxygen Flow Rate 06/30/23 07:47 06/30/23 06:00 06/30/23 14:25 Temperature 36.0 C L 36.3 C L Pulse Rate 55 L 84 Respiratory Rate 18 20 Blood Pressure 100/62 122/64 Pulse Oximetry 96 97 96 Oxygen Delivery Room Air Oxygen Flow Rate 06/30/23 14:44 06/30/23 14:56 06/30/23 15:06 Temperature 37.1 C Pulse Rate 65 62 61 Respiratory Rate 16 19 18 Blood Pressure 106/78 82/44 L 85/47 L Pulse Oximetry 97 99 99 Oxygen Delivery Room Air Nasal Cannula Nasal Cannula Oxygen Flow Rate 4 4 06/30/23 15:12 06/30/23 15:20 Temperature Pulse Rate 60 62 Respiratory Rate 16 16 Blood Pressure 92/62 L 103/66 Pulse Oximetry 98 98 Oxygen Delivery Room Air Room Air Oxygen Flow Rate
[2023-06-30] MEDS: AZITHROMYCIN 500 MG/NS 250 ML 500 MG/250 ML BAG 250 MG IVPB (17:10)
[2023-06-30] MEDS: oxyCODONE/ACETAMINOPHEN (*CRX) 5-325 MG TABLET 1 TABLET PO (20:20)
[2023-06-30] MEDS: FAMOTIDINE 20 MG TABLET PO (20:21)
--- NOTE | 2023-06-30 20:35 | PC.NURSE ---
Pt vomiting and nauseated. RN walked into pt room to pt dry heaving and vomiting. Pt room also had a strong odor of cigarettes and a haze in the room that burned RN eyes. Asked pt if she had been smoking and she denied it, informed her that we have a no smoking policy. Will continue to monitor and informed her RNRomie that she was having nausea and needed medication.
[2023-06-30] MEDS: PROMETHAZINE HCL 25 MG/ML AMPUL 12.5 MG IV PUSH (20:41)
[2023-06-30] MEDS: HYDROcodone/acetaminophen (*CRX) 5-325 MG TABLET 1 TAB PO (23:24)
[2023-07-01] MEDS: oxyCODONE/ACETAMINOPHEN (*CRX) 5-325 MG TABLET 1 TABLET PO (01:45)
--- NOTE | 2023-08-04 19:27 | PM.EVENT ---
Event Note Event Note Event Note: I was notified by nurse that the patient wanted to leave AMA. Patient left AMA
== END 2023-07-01 05:00 | disposition home or self-care (01) ==
LOC: ANHED 15:00 → ANH3MEDSUR 16:28 → ANH2MED 18:43
PROVIDERS: Internal Medicine Gastroenterology; Physician Assistant; Preventive Medicine Aerospace Medicine; Admitting Provider Family Medicine; Emergency Provider Physician Assistant; Visit Provider Family Medicine
PROC: 0DJ08ZZ Inspection of Upper Intestinal Tract, Via Natural or Artificial Opening Endoscopic (ICD-10-PCS; CPT 43235; principal; 2023-06-30 14:45)
DX: K92.0 Hematemesis (principal); U07.1 COVID-19; J12.82 Pneumonia due to coronavirus disease 2019; R10.31 Right lower quadrant pain; R30.0 Dysuria; R31.9 Hematuria, unspecified; F41.9 Anxiety disorder, unspecified; F43.10 Post-traumatic stress disorder, unspecified; D72.829 Elevated white blood cell count, unspecified; F90.9 Attention-deficit hyperactivity disorder, unspecified type; J45.909 Unspecified asthma, uncomplicated; Z87.442 Personal history of urinary calculi; Z90.49 Acquired absence of other specified parts of digestive tract; F17.210 Nicotine dependence, cigarettes, uncomplicated; F12.90 Cannabis use, unspecified, uncomplicated; Z79.51 Long term (current) use of inhaled steroids; Z79.899 Other long term (current) drug therapy
CPT/HCPCS: 43239; 36415; 71046; 71275; 74177; 80048; 80053; 81001; 81025; 83690; 83735; 85025; 85027; 85610; 85730; 87081; 87086; 87636; 93005; 94640; 96361; 96365; 96366; 96367; 96372; 96375; 96376; 99285; A9270; C9113; G0378; J0456; J0696; J1170; J1200; J2060; J2270; J2550; J2704; J7030; J7040; J7120; Q9967

== ENCOUNTER 2023-09-02 17:41 | Emergency (ER) | payer MEDICAID, SELFPAY ==
--- NOTE | ~2023-09-02 | CT_ITS ---
EXAMINATION: CT abdomen pelvis wo con DATE: 09/02/2023 18:48 INDICATION: Abdominal pain. TECHNIQUE: Computed tomography (CT) of the abdomen and pelvis was performed without intravenous contr ast. Automated exposure control and iterative reconstruction technique were employed. The dose-length product was 181.22 mGy-cm. COMPARISON: CT abdomen and pelvis 06/29/2023 FINDINGS: There is severe motion artifact. The visualized portions of the lung bases demonstrate mild atelectasis. No pleural effusion. The heart size is normal. No pericardial effusion. The liver is no rmal. There are changes of cholecystectomy. The spleen is absent. The pancreas, adrenal glands, and k idneys are normal. There is no urolithiasis. There are no dilated loops of bowel. The appendix is not visualized. There are no pathologically enlarged lymph nodes. There is no free intraperitoneal fluid . There are old healed bilateral rib fractures. There are chronic fractures of L1-L3 vertebral bodies . There is an old healed fracture of the sacrum. IMPRESSION: 1. No etiology for the patient's symptoms. Sensitivity is decreased by severe motion artifact. Reviewed, dictated and finalized at location E. Y GUNNER IMPRESSION: 1. No etiology for the patient's symptoms. Sensitivity is decreased by severe m otion artifact.
[2023-09-02 18:09] VITALS: BP 145/80; PULSE 77; RESP 18; TEMP 36.7; O2SAT 96
[2023-09-02] MEDS: SODIUM CHLORIDE 0.9% IV 1,000 ML 999 ML IV CONT (18:26)
[2023-09-02] MEDS: MORPHINE SULFATE (*CRX) 2 MG/ML INJ IV PUSH (18:27)
[2023-09-02 18:45] LABS: Appearance Urine Cloudy (Clear); Bilirubin Urine Negative (Negative); Blood Urine 3+ (Negative); Color Urine Brown (Yellow); Glucose Urine UA Negative (Negative); Ketones Urine Negative (Negative); Leukocyte Esterase Ur Negative LEU/UL (Negative); Nitrate Urine Negative (Negative); Protein Urine Trace (Negative); Specific Grav Ur >= 1.030 (1.010-1.020); Urobilinogen Urine 0.2 mg/dL (0.2-1.0)
[2023-09-02 18:49] LABS: Add Urine Microscopic? YES; RBC Urine >75 /hpf (0-2); Squamous Epithelial Cell Urine Rare /hpf (Few); WBC Urine 0-3 /hpf (0-3)
[2023-09-02 18:50] LABS: Bacteria Urine 1+ /hpf
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
== END 2023-09-02 18:55 | disposition left against medical advice (07) ==
PROVIDERS: Emergency Provider Family Medicine
DX: R10.9 Unspecified abdominal pain (principal); R30.0 Dysuria; F17.210 Nicotine dependence, cigarettes, uncomplicated
CPT/HCPCS: 74176; 81001; 96374; 99284; J2270; J7030

== ENCOUNTER 2023-09-05 18:34 | Emergency (ER) | payer MEDICAID, SELFPAY ==
[2023-09-05 18:48] VITALS: BP 109/74; PULSE 67; RESP 17; TEMP 36.4; O2SAT 99
[2023-09-05 19:14] LABS: Bacteria Urine None Seen /hpf; Non Pathogenic Casts 0-2; RBC Urine >100 /hpf (0-2); Squamous Epithelial Cell Urine None seen /hpf (Few)
[2023-09-05 19:30] LABS: Appearance Urine Cloudy (Clear); Color Urine Red (Yellow)
[2023-09-05 19:31] LABS: Blood Urine 3+ (Negative); Glucose Urine UA Negative (Negative); Ketones Urine Negative (Negative); Nitrate Urine Negative (Negative); Protein Urine 2+ mg/dL (Negative); Specific Grav Ur >= 1.300 (1.001-1.035)
[2023-09-05 19:32] LABS: Bilirubin Urine Negative (Negative); Leukocyte Esterase Ur Negative LEU/UL (Negative); Urobilinogen Urine 0.2 mg/dL (<2.0)
[2023-09-05 19:34] LABS: Add Urine Microscopic? YES
--- NOTE | 2023-09-05 20:09 | PC.NURSE ---
Patient was called twice at triage desk for a room, no answer either time
== END 2023-09-05 19:00 | disposition left against medical advice (07) ==
PROVIDERS: Emergency Provider Emergency Medicine
DX: R10.9 Unspecified abdominal pain (principal)
CPT/HCPCS: 81001; 87086; 99199

== ENCOUNTER 2025-04-02 09:33 | Emergency (ER) | payer MEDICAID, SELFPAY ==
--- NOTE | ~2025-04-02 | CT_ITS ---
Non-contrast CT scan of the Abdomen and Pelvis Clinical indication: Right flank pain Technique: 2.5 mm axial scans were obtained through the abdomen and pelvis without intravenous or or al contrast. Dose reduction technique was used on this scan by utilizing automated exposure control a nd iterative reconstruction technique. The dose-length product (DLP) was 195.94 mGy-cm. COMPARISON: 09/02/2023 Findings: Images through the lung bases reveal no abnormalities. There is no evidence of renal or ureteral calculi. The kidneys and the ureters are nondilated. The liver, pancreas, and adrenals appear normal. Spleen is absent. Cholecystectomy clips are present. There is no aortic aneurysm. There is no evidence of bowel obstruction. Images through the pelvis were performed. There is no evidence of ascites or lymphadenopathy. Urinary bladder unremarkable. No pelvic mass seen. Mild L1 and L2 compression fractures are present, likely chronic. Impression: Mild L1 and L2 compression fractures, likely chronic. Correlate clinically. No other significant findings. Reviewed, dictated and finalized at [facility]. Impression: Mild L1 and L2 compression fractures, likely chronic. Correlate clinically. No other significant findings.
[2025-04-02 09:34] VITALS: BP 122/66; PULSE 104; RESP 20; TEMP 36.9; O2SAT 97
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
[2025-04-02] MEDS: PROMETHAZINE HCL 25 MG/ML AMPUL 12.5 MG IV PUSH (09:55)
[2025-04-02] MEDS: MORPHINE SULFATE (*CRX) 2 MG/ML INJ 4 MG IV PUSH (09:56)
[2025-04-02 09:58] LABS: Add Urine Microscopic? YES; Appearance Urine Sl Cloudy (Clear); Bilirubin Urine 1+ (Negative); Blood Urine 3+ (Negative); Color Urine Red (Yellow); Glucose Urine UA Negative (Negative); Ketones Urine Trace (Negative); Leukocyte Esterase Ur Negative LEU/UL (Negative); Nitrate Urine Negative (Negative); Protein Urine 1+ (Negative); Specific Grav Ur >= 1.030 (1.010-1.020); pH Urine 5.5 (5.0-8.0)
[2025-04-02 10:02] LABS: Bacteria Urine 1+ /hpf; RBC Urine >75 /hpf (0-2); Squamous Epithelial Cell Urine Few /hpf (Few); WBC Urine None seen /hpf (0-3)
[2025-04-02 10:08] LABS: Basophils Absolute Auto 0.08 K/mm3 (0.00-0.10); Basophils Percent Auto 1.3 % (0.0-1.0); Eosinophils Absolute Auto 0.38 K/mm3 (0.02-0.50); Eosinophils Percent Auto 6.4 % (1.0-6.0); Hematocrit 35.4 % (35.0-49.0); Hemoglobin 11.3 g/dL (12.0-15.0); Immature Granulocyte Absolute 0.02 K/mm3 (0.00-0.00); Immature Granulocyte Percent A 0.3 % (0.0-0.0); Lymphocytes Absolute Auto 1.77 K/mm3 (1.10-4.50); Lymphocytes Percent Auto 29.6 % (18.0-42.0); Mean Corpuscular HGB Conc 31.9 g/dL (32-36); Mean Corpuscular Hemoglobin 30.1 pg (27.0-31.0); Mean Corpuscular Volume 94.1 fL (78.0-102.0); Mean Platelet Volume 9.4 fl (9.2-11.8); Monocytes Absolute Auto 0.64 K/mm3 (0.10-0.90); Monocytes Percent Auto 10.7 % (2.0-11.0); Neutrophils Absolute Auto 3.08 K/mm3 (1.70-7.20); Neutrophils Percent Auto 51.7 % (50.0-70.0); Platelet Count Result 370 K/mm3 (150-420); Red Blood Count 3.76 M/mm3 (4.20-5.40); Red Cell Distribution Width 13.2 % (11.6-14.4)
--- NOTE | 2025-04-02 10:10 | PC.NURSE ---
Pt reports no pain relief after morphine. ERP aware.
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
--- OUTSIDE RECORDS SUMMARY | 2025-04-02 10:14 | XMS_ITS | Encounter Summary ---
Author Organization [employer] Address 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 Gender Identity Not on file Sexual Orientation Not on file documented as of this encounter Plan of Treatment Not on file documented as of this encounter Procedures Procedure Name Priority Date/Time Associated Diagnosis Comments CBC WITH DIFFERENTIAL Routine 12/17/2006 10:53 AM GLUER AND WEDGER CBC WITH DIFFERENTIAL Routine 12/17/2006 10:53 AM GLUER AND WEDGER DRUG SCREEN, URINE Routine 12/17/2006 10 :53 AM GLUER AND WEDGER C-REACTIVE PROTEIN Routine 12/17/2006 10 :53 AM GLUER AND WEDGER COMPREHENSIVE METABOLIC PANEL Routine 12/17/2006 10:53 AM GLUER AND WEDGER documented in this encounter Results * DRUG SCREEN, URINE (12/17/2006 10:53 AM GLUER AND WEDGER) COMMENT, TOXICOLOGY See Separate Comment INTERFACE SYSTEM Comment: Urine sample was not handled as a legal specimen and was received without a chain of custody. The result should be used only for medical purposes. False positive and erroneous results can occur due to cross-reacting sub stances and other factors. Depending on the clinical context, confirmation of all presumptive positive results by a more specific alternate method is recommended. A negative result indicates the analyte, if present, is below the screening threshold. Drug Ref. Range Screening Threshold Amphetamines Negative 1000 ng/mL Barbituates Negative 200 ng/mL Benzodiazepines Negative 300 ng/mL Cannabinoids Negative 50 ng/mL Cocaine Metabolites Negative 300 ng/mL Opiates Negative 300 ng/mL Phencycldine Negative 25 ng/mL The cut-off threshold, known cross-reactive compounds, drugs,and specificity information for each of the urine drugs of abuse are available on the [facility] at: [email or web address] Select: Drugs of Abuse ? [facility] To inquire about any potential cross-reactivity of a specific drug not listed at this site, please contact the Chemistry Lab at . AMPHETAMINE QUAL, URINE Negative Negative INTERFACE SYSTEM BARBITURATE QUAL, URINE Negative Negative INTERFACE SYSTEM BENZODIAZEPINE QUAL, URINE Presumptive Positive Negative INTERFACE SYSTEM CANNABINOIDS QUAL, URINE Presumptive Positive Negative INTERFACE SYSTEM COCAINE QUAL URINE Negative Negative INTERFACE SYSTEM OPIATE QUAL, URINE Presumptive Positive Negative INTERFACE SYSTEM PCP QUAL, URINE Negative Negative INTE RFACE SYSTEM 12/17/2006 10:5 3 AM GLUER AND WEDGER us Kane Philip MD URINE ORDERABLES Edited INTERFACE SYSTEM Refer to clinic/hospital department * CBC WITH DIFFERENTIAL (12/17/2006 10:53 AM GLUER AND WEDGER) NEUTROPHILS 65 45 - 70 % INTERFAC E SYSTEM LYMPHOCYTES 20 16 - 45 % INTERFAC E SYSTEM MONOCYTES 12 3 - 13 % INTERFACE SYSTEM EOSINOPHILS 3 0 - 7 % INTERFAC E SYSTEM BASOPHILS 0 0 - 2 % INTERFACE SYSTEM NEUTROPHIL ABSOLUTE 3.56 1.90 - 7.00 K/uL INTERFACE SYSTEM LYMPHOCYTE ABSOLUTE 1.10 0.70 - 4.50 K/uL INTERFACE SYSTEM MONOCYTE ABSOLUTE 0.64 0.10 - 1.30 K/uL INTERFACE SYSTEM EOSINOPHIL ABSOLUTE 0.19 0.00 - 0.70 K/uL INTERFACE SYSTEM BASOPHILS ABSOLUTE 0.02 0.00 - 0.20 K/uL INTERFACE SYSTEM 12/17/2006 10:5 3 AM GLUER AND WEDGER Kane Philip MD HEMATOLOGY ORDERABLES Edited Performing Organization Address City/[facility] Phone Number INTERFACE SYSTEM Refer to clinic/hospital department * CBC WITH DIFFERENTIAL (12/17/2006 10:53 AM GLUER AND WEDGER) WBC 5.5 4.0 - 9.8 K/uL INTERFACE SYSTEM RBC 3.98 3.90 - 4.90 M/uL INTERFACE SYSTEM HEMOGLOBIN 12.1 11.8 - 14.8 g/dL INTERFACE SYSTEM HEMATOCRIT 35.7 35.5 - 44.0 % INTERFACE SYSTEM MCV 89.7 82.0 - 99.0 fL INTERFACE SYSTEM MCH 30.4 27.2 - 32.6 pg INTERFACE SYSTEM MCHC 33.9 31.5 - 35.5 % INTERFACE SYSTEM RDW 13.1 11.5 - 14.5 % INTERFACE SYSTEM RDW-STDEV 43.5 37.1 - 48.7 fL INTERFACE SYSTEM PLATELETS 247 140 - 350 K/uL INTERFACE SYSTEM MPV 9.9 9.3 - 12.4 fL INTERFACE SYSTEM 12/17/2006 10:5 3 AM GLUER AND WEDGER Kane Philip MD HEMATOLOGY ORDERABLES Edited Performing Organization Address [facility] de Phone Number INTERFACE SYSTEM Refer to clinic/hospital department * (ABNORMAL) C-REACTIVE PROTEIN (12/17/2006 10:53 AM GLUER AND WEDGER) CRP 2.7(H) 0.0 - 0.8 mg/dL INTERFACE SYSTEM 12/17/2006 10:5 3 AM GLUER AND WEDGER Kane Philip MD CHEMISTRY ORDERABLES Edited Performing Organization Address City/[facility]/ZIP Co de Phone Number INTERFACE SYSTEM Refer to clinic/hospital department * (ABNORMAL) COMPREHENSIVE METABOLIC PANEL (12/17/2006 10:53 AM GLUER AND WEDGER) GLUCOSE 73 65 - 99 mg/dL INTERFACE SYSTEM CREATININE 0.50(L) 0.51 - 0.95 mg/dL INTERFACE SYSTEM CALCIUM 9.0 8.4 - 10.2 mg/dL INTERFACE SYSTEM ALKALINE PHOSPHATASE 78 35 - 104 U/L INTERFACE SYSTEM AST 33(H) 12 - 32 U/L INTERFACE SYSTEM ALT 35(H) 0 - 31 U/L INTERFACE SYSTEM TOTAL PROTEIN 7.5 6.3 - 8.6 g/dL INTERFACE SYSTEM ALBUMIN 4.3 3.4 - 4.8 g/dL INTERFACE SYSTEM BILIRUBIN TOTAL 0.2 0.2 - 1.0 mg/dL INTERFACE SYSTEM BUN 7 6 - 20 mg/dL INTERFACE SYSTEM SODIUM 138 135 - 145 mmol/L INTERFACE SYSTEM POTASSIUM 3.9 3.5 - 4.9 mmol/L INTERFACE SYSTEM CHLORIDE 102 96 - 108 mmol/L INTERFACE SYSTEM CO2 28 22 - 30 mmol/L INTERFACE SYSTEM GFR, >60 >=60 mL/min/1. 7 sq meter INTERFACE SYSTEM GFR >60 >=60 mL/min/1. 7 sq meter INTERFACE SYSTEM Comment: Estimated GFR rate interpretative information for both Americans and non- Americans is available on the [facility] Intranet at: [email or web address] Select: Lab Policies and Procedures Select: Reference Ranges - GFR 12/17/2006 10:5 3 AM GLUER AND WEDGER us Kane Philip MD CHEMISTRY ORDERABLES Edited INTERFACE SYSTEM Refer to clinic/hospital department documented in this encounter Visit Diagnoses Diagnosis Abdominal pain, other specified site- Primary documented in this encounter Care Teams Cooperative Manager Relationship Specialty Start Date End Date Mike Desouza MD [address] [place] [phone] PCP - General 11/02/23 documented as of this encounter
--- OUTSIDE RECORDS SUMMARY | 2025-04-02 10:14 | XMS_ITS | Encounter Summary ---
Author Organization [employer] Address 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 Gender Identity Not on file Sexual Orientation Not on file documented as of this encounter Plan of Treatment Not on file documented as of this encounter Procedures Procedure Name Priority Date/Time Associated Diagnosis Comments POC , URINE Routine 05/02/2009 8:24 PM CDT POC URINALYSIS DIPSTICK AUTOMATED Routine 05/02/2009 8:22 PM CDT URINALYSIS WITH REFLEX CULTURE Stat 05/02/2009 8:06 PM CDT CBC WITH DIFFERENTIAL Stat 05/02/2009 8:06 PM CDT URINALYSIS W/REFLEX MICROSCOPIC Stat 05/02/2009 8:06 PM CDT URINE CULTURE Stat 05/02/2009 8:06 PM CDT C-REACTIVE PROTEIN Stat 05/02/2009 8: 06 PM CDT LIPASE Stat 05/02/2009 8:06 PM CDT COMPREHENSIVE METABOLIC PANEL Stat 05/02/2009 8:06 PM CDT documented in this encounter Results * POC , URINE (05/02/2009 8:24 PM CDT) SPECIFIC GRAVITY UA 1.015 1.001 - 1.035 [facility] , URINE POC Negative Negative [facility] CLIA LICENSE [id number] [facility] 05/02/2009 8:24 PM CDT 05/02/2009 8:24 PM CDT us Authorized P Er POINT OF CARE TESTING Final Resu lt INTERFACE SYSTEM Refer to clinic/hospital department [facility] CLIA# [id number] [address] [place] [address] * (ABNORMAL) POC URINALYSIS DIPSTICK AUTOMATED (05/02/2009 8:22 PM CDT) COLOR UA [place] [facility] NITRITE UA Negative Negative [facility] BILIRUBIN UA Negative Negative [facility] PH UA 8.0 5.0 - 8.0 [facility] CLIA LICENSE [id number] [facility] KETONES UA Negative Negative [facility] CLARITY UA Slightly cloudy [facility] BLOOD UA 2+(A) Negative [facility] PROTEIN UA Negative Negative [facility] LEUKOCYTE ESTERASE UA Negative Negative [facility] UROBILINOGEN UA Normal <=1 mg/dL [facility] SPECIFIC GRAVITY UA 1.015 1.001 - 1.030 [facility] GLUCOSE UA Negative Negative [facility] COMMENT, URINE Test not chrgd/to repeat [facility] 05/02/2009 8:22 PM CDT 05/02/2009 8:22 PM CDT us Authorized P Er POINT OF CARE TESTING Edited Performing Organization Address [facility] Co de Phone Number INTERFACE SYSTEM Refer to clinic/hospital department [facility] CLIA# [id number] [address] [address] * URINE CULTURE (05/02/2009 8:06 PM CDT) PRELIMINARY REPORT Pending [facility] FINAL REPORT No growth 24 hours [facility] 05/02/2009 8:06 PM CDT 05/02/2009 9:31 PM CDT us Ervin Membreno MD MICROBIOLOGY - GENERAL ORDERA BLES Final Result Performing Organization Address [facility] de Phone Number INTERFACE SYSTEM Refer to clinic/hospital department [facility] CLIA# [id number] [address] [place] [address] * (ABNORMAL) URINALYSIS (05/02/2009 8:06 PM CDT) SPECIFIC GRAVITY UA 1.016 1.001 - 1.035 [facility] GLUCOSE UA Negative Negative [facility] BLOOD UA 3+(A) Negative [facility] COLOR UA [place] [facility] NITRITE UA Negative Negative [facility] BACTERIA UA 1+(A) None Seen /HPF [facility] UROBILINOGEN UA <1 <=1 mg/dL [facility] PH UA 8.0 5.0 - 8.0 [facility] WBC UA 2 0 - 5 /HPF [facility] KETONES UA Negative Negative [facility] CLARITY UA Clear Clear [facility] BILIRUBIN UA Negative Negative [facility] [place] PROTEIN UA Confirmed--N egative Negative [facility] EPITHELIAL CELLS, URINE 2-5 /HPF [facility] LEUKOCYTE ESTERASE UA Negative Negative [facility] RBC UA >100(H) 0 - 4 /HPF [facility] 05/02/2009 8:06 PM CDT 05/02/2009 8:34 PM CDT Ervin Membreno MD URINE ORDERABLES Final Result Performing Organization Address [facility] de Phone Number INTERFACE SYSTEM Refer to clinic/hospital department [facility] CLIA# [id number] [address] [place] [address] * URINALYSIS WITH REFLEX CULTURE (05/02/2009 8:06 PM CDT) URINE CULTURE ORDER Culture ordered [facility] Comment: Criteria for a reflex culture include one or more of the following: Abnormal nitrite, leukocyte esterase, WBCs or RBCs. Lack of qualifying criteria does not exclude the possiblity of a urinary tract infection. Dilute urine, drug interference, etc. may decrease the sensitivity of the criteria analytes. 05/02/2009 8:06 PM CDT 05/02/2009 8:34 PM CDT Ervin Membreno MD URINE ORDERABLES Final Result Performing Organization Address [facility] de Phone Number INTERFACE SYSTEM Refer to clinic/hospital department [facility] CLIA# [id number] [address] [place] [address] * LIPASE (05/02/2009 8:06 PM CDT) LIPASE 16 13 - 60 U/L [facility] 05/02/2009 8:06 PM CDT 05/02/2009 8:24 PM CDT Ervin Membreno MD CHEMISTRY ORDERABLES Final Re sult Performing Organization Address [facility] Phone Number INTERFACE SYSTEM Refer to clinic/hospital department [facility] CLIA# [id number] [address] [place] [address] * C-REACTIVE PROTEIN (05/02/2009 8:06 PM CDT) CRP 0.5 0.0 - 0.8 mg/dL [facility] 05/02/2009 8:06 PM CDT 05/02/2009 8:24 PM CDT us Ervin Membreno MD CHEMISTRY ORDERABLES Final Re sult Performing Organization Address [facility] de Phone Number INTERFACE SYSTEM Refer to clinic/hospital department [facility] CLIA# [id number] [address] [place] [address] * (ABNORMAL) COMPREHENSIVE METABOLIC PANEL (05/02/2009 8:06 PM CDT) ALKALINE PHOSPHATASE 71 35 - 104 U/L [facility] CO2 24 22 - 30 mmol/L [facility] BILIRUBIN TOTAL 0.2 0.2 - 1.0 mg/dL [facility] POTASSIUM 4.0 3.5 - 4.9 mmol/L [facility] TOTAL PROTEIN 6.8 6.3 - 8.6 g/dL [facility] GLUCOSE 110(H) 65 - 99 mg/dL [facility] AST 24 12 - 32 U/L [facility] BUN 14 6 - 20 mg/dL [facility] CALCIUM 9.2 8.6 - 10.2 mg/dL [facility] ALBUMIN 4.2 3.4 - 4.8 g/dL [facility] CHLORIDE 105 96 - 108 mmol/L [facility] CREATININE 0.73 0.51 - 0.95 mg/dL [facility] ALT 21 0 - 31 U/L [facility] SODIUM 137 135 - 145 mmol/L [facility] GFR, >60 >=60 mL/min/1. 7 sq meter [facility] GFR >60 >=60 mL/min/1. 7 sq meter [facility] Comment: Modification of Diet in Renal Disease (MDRD) study formula. Estimated GFR rate interpretative information for both Americans and non- Americans is available on the [facility] Intranet at: [email or web address] Select: Lab Policies and Procedures Select: Reference Ranges - GFR 05/02/2009 8:06 PM CDT 05/02/2009 8:24 PM CDT Ervin Membreno MD CHEMISTRY ORDERABLES Edited INTERFACE SYSTEM Refer to clinic/hospital department [facility] CLIA# [id number] [address] [place] [address] * (ABNORMAL) CBC WITH DIFFERENTIAL (05/02/2009 8:06 PM CDT) RBC 3.87(L) 3.90 - 4.90 M/uL [facility] MCHC 33.9 31.5 - 35.5 % [facility] MCV 89.1 82.0 - 99.0 fL [facility] PLATELETS 237 140 - 350 K/uL [facility] HEMOGLOBIN 11.7(L) 11.8 - 14.8 g/dL [facility] RDW 12.7 11.5 - 14.5 % [facility] WBC 4.2 4.0 - 9.8 K/uL [facility] MCH 30.2 27.2 - 32.6 pg [facility] MPV 9.2(L) 9.3 - 12.4 fL [facility] HEMATOCRIT 34.5(L) 35.5 - 44.0 % [facility] RDW-STDEV 40.9 37.1 - 48.7 fL [facility] NEUTROPHILS 48 45 - 70 % [facility] NEUTROPHIL ABSOLUTE 2.00 1.90 - 7.00 K/uL [facility] EOSINOPHILS 6 0 - 7 % [facility] EOSINOPHIL ABSOLUTE 0.26 0.00 - 0.70 K/uL [facility] LYMPHOCYTES 35 16 - 45 % [facility] LYMPHOCYTE ABSOLUTE 1.46 0.70 - 4.50 K/uL [facility] BASOPHILS 1 0 - 2 % [facility] BASOPHILS ABSOLUTE 0.04 0.00 - 0.20 K/uL [facility] MONOCYTES 10 3 - 13 % [facility] MONOCYTE ABSOLUTE 0.40 0.10 - 1.30 K/uL [facility] 05/02/2009 8:06 PM CDT 05/02/2009 8:24 PM CDT us Ervin Membreno MD HEMATOLOGY ORDERABLES Edited INTERFACE SYSTEM Refer to clinic/hospital department [facility] CLIA# [id number] [address] [place] [address] documented in this encounter Visit Diagnoses Not on filedocumented in this encounter Care Teams Chemical Laboratory Technician Relationship Specialty Start Date End Date Mike Desouza MD [address] [place] [phone] PCP - General 11/02/23 documented as of this encounter
--- OUTSIDE RECORDS SUMMARY | 2025-04-02 10:14 | XMS_ITS | Encounter Summary ---
Author Organization [employer] Address 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
--- OUTSIDE RECORDS SUMMARY | 2025-04-02 10:14 | XMS_ITS | Encounter Summary ---
Author Organization [employer] Address 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
--- OUTSIDE RECORDS SUMMARY | 2025-04-02 10:14 | XMS_ITS | Encounter Summary ---
Author Organization [employer] Address 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
--- OUTSIDE RECORDS SUMMARY | 2025-04-02 10:14 | XMS_ITS | Encounter Summary ---
Author Organization [employer] Address 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
--- OUTSIDE RECORDS SUMMARY | 2025-04-02 10:14 | XMS_ITS | Encounter Summary ---
Author Organization [email or web address] Address 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
--- OUTSIDE RECORDS SUMMARY | 2025-04-02 10:14 | XMS_ITS | Encounter Summary ---
Author Organization [employer] Address [address] [place] [address] Care Team Providers Care Broom Stitcher Name Role Phone Mike Desouza MD Primary Care Provider [phone] Encounter Details Date Type Department Care Team (Late st Contact Info) Description 10/25/2008 Outpatient Historical [facility]PED[facility] Er, Authorized P NO ADDRESS ON FILE Nikki Slade MD NO ADDRESS ON FILE Unspecified, Hemorrhage of Gastrointestinal Tract; Gross Hematuria; Hematemesis; Other Primary Cardiomyopathies (CMS/HCC); Hemoptysis; Tobacco Use Disorder; Nondependent Cannabis Abuse, Unspecified; Unspecified Epilepsy without Mention of Intractable Epilepsy (CMS/HCC); Other Voice Disturbance; Abdominal Pain, Unspecified Site; Abnormal Coagulation Profile; Hx of Past Noncompliance; Personal History of Urinary Calculi Social History Tobacco Use Types Packs/Day Years Used Date Smoking Tobacco: Never Assessed Comments Unknown Sex and Gender Information Value Date Recorded Sex Assigned at Not on file Legal Sex Female 2:42 AM VIDEO TECHNICIAN Gender Identity Not on file Sexual Orientation Not on file documented as of this encounter Plan of Treatment Not on file documented as of this encounter Procedures Procedure Name Priority Date/Time Associated Diagnosis Comments CBC WITH DIFFERENTIAL Routine 10/31/2008 5:35 AM VIDEO TECHNICIAN MISCELLANEOUS LAB TEST Timed Study 10/30/2008 12:26 PM VIDEO TECHNICIAN BLEEDING TIME/PLATELET FUNCTION Routine 10/30/2008 6:00 AM VIDEO TECHNICIAN ABORH TYPING Routine 10/30/2008 5:23 AM VIDEO TECHNICIAN DIC PROFILE Routine 10/30/2008 5:00 AM VIDEO TECHNICIAN VON WILLEBRAND FACTOR ANTIGEN Routine 10/30/2008 5:00 AM VIDEO TECHNICIAN CBC WITH DIFFERENTIAL Routine 10/30/2008 5:00 AM VIDEO TECHNICIAN FACTOR VIII ASSAY Routine 10/30/2008 5:0 [address] ABDOMEN PELVIS W CONTRAST Routine 10/29/2008 11:00 AM VIDEO TECHNICIAN XR ABDOMEN W DECUB AND OR ERECT 2 VW Routine 10/29/2008 10:55 AM VIDEO TECHNICIAN CBC WITH DIFFERENTIAL Routine 10/29/2008 4:05 AM VIDEO TECHNICIAN BASIC METABOLIC PANEL Routine 10/29/2008 4:05 AM VIDEO TECHNICIAN HELICOBACTER PYLORI RAPID UREASE TEST Timed Study 10/28/2008 4:45 PM VIDEO TECHNICIAN BASIC METABOLIC PANEL Timed Study 10/28/2008 11:[address] CHEST W CONTRAST Routine 10/28/2008 8 :32 AM VIDEO TECHNICIAN CBC WITH DIFFERENTIAL Routine 10/28/2008 3:40 AM VIDEO TECHNICIAN CBC WITH DIFFERENTIAL Routine 10/27/2008 6:05 AM VIDEO TECHNICIAN PHENYTOIN LEVEL, TOTAL Routine 10/27/2008 6:05 AM VIDEO TECHNICIAN BASIC METABOLIC PANEL Routine 10/27/2008 6:05 AM VIDEO TECHNICIAN CBC WITH DIFFERENTIAL Routine 10/26/2008 5:10 AM VIDEO TECHNICIAN MRSA CULTURE Stat 10/25/2008 8:45 PM VIDEO TECHNICIAN XR ABDOMEN ACUTE SERIES W CXR Stat 10/25/2008 7:10 PM VIDEO TECHNICIAN CBC WITH DIFFERENTIAL Stat 10/25/2008 6:40 PM VIDEO TECHNICIAN LIPASE Stat 10/25/2008 6:40 PM VIDEO TECHNICIAN HEPATIC FUNCTION PANEL Stat 10/25/2008 6:40 PM VIDEO TECHNICIAN BASIC METABOLIC PANEL Stat 10/25/2008 6:40 PM VIDEO TECHNICIAN URINALYSIS WITH REFLEX CULTURE Stat 10/25/2008 6:05 PM VIDEO TECHNICIAN DRUG SCREEN, URINE Stat 10/25/2008 6: 05 PM VIDEO TECHNICIAN URINALYSIS W/REFLEX MICROSCOPIC Stat 10/25/2008 6:05 PM VIDEO TECHNICIAN URINE CULTURE Stat 10/25/2008 6:05 PM VIDEO TECHNICIAN HCG QUALITATIVE, URINE Stat 10/25/2008 6:05 PM VIDEO TECHNICIAN documented in this encounter Results * CBC WITH DIFFERENTIAL (10/31/2008 5:35 AM VIDEO TECHNICIAN) MPV 9.5 9.3 - 12.4 fL [facility] MCH 30.6 27.2 - 32.6 pg [facility] HEMATOCRIT 37.6 35.5 - 44.0 % [facility] RDW-STDEV 41.4 37.1 - 48.7 fL [facility] RBC 4.09 3.90 - 4.90 M/uL [facility] MCHC 33.2 31.5 - 35.5 % [facility] MCV 91.9 82.0 - 99.0 fL [facility] PLATELETS 256 140 - 350 K/uL [facility] HEMOGLOBIN 12.5 11.8 - 14.8 g/dL [facility] RDW 12.3 11.5 - 14.5 % [facility] WBC 4.5 4.0 - 9.8 K/uL [facility] NEUTROPHIL ABSOLUTE 2.30 1.90 - 7.00 K/uL [facility] NEUTROPHILS 51 45 - 70 % [facility] EOSINOPHILS 6 0 - 7 % [facility] EOSINOPHIL ABSOLUTE 0.26 0.00 - 0.70 K/uL [facility] LYMPHOCYTES 30 16 - 45 % [facility] LYMPHOCYTE ABSOLUTE 1.34 0.70 - 4.50 K/uL [facility] BASOPHILS 1 0 - 2 % [facility] BASOPHILS ABSOLUTE 0.03 0.00 - 0.20 K/uL [facility] MONOCYTES 12 3 - 13 % [facility] MONOCYTE ABSOLUTE 0.55 0.10 - 1.30 K/uL [facility] Blood specimen (specimen) 10/31/2008 5:35 AM VIDEO TECHNICIAN 10/31/2008 5:44 AM VIDEO TECHNICIAN us Nikki Slade MD HEMATOLOGY ORDERABLES Edited INTERFACE SYSTEM Refer to clinic/hospital department [facility] CLIA# [id number] [address] [place] [address] * MISCELLANEOUS LAB TEST (10/30/2008 12:26 PM VIDEO TECHNICIAN) TEST NAME Prolonged PTT Evaluation [facility] SPECIMEN TYPE Blood [facility] MISCELLANEOUS LAB TEST Name of Test: Prolonged PTT Evaluation Test Result: APTT Sta Eval APTT Sec N/C: NOT DONE APTT Seconds: 37.9 Seconds APTT Ratio: 1.43 PT Sec Sta N/C: 12.9 Seconds PT INR Sta N/C: 1.0 Thrombin Time N: 14.8 Seconds Factor VIII: 46 U/dL Factor 8 Inhib: 0.5 BU Dilute PT DPT Interpretat: Negative StaClot-LA: StaClot-LA: Negative DRVVT: LA-DRVVT: Negative Reference Range: APTT Sta Eval APTT Sec N/C: 24.0 - 38.0 Seconds APTT Seconds: 24.0 - 38.0 Seconds APTT Ratio: PT Sec Sta N/C: 12.8 - 15.1 Seconds PT INR Sta N/C: Thrombin Time N: 16.2 - 21.9 Seconds Factor VIII: Normal Reference Range For Blood Type O: 45 - 180 U/dL Normal Reference Range For Blood Type A: 60 - 200 U/dL Normal Reference Range For Blood Type B and AB Combined: 80 - 225 U/dL (Normal reference ranges for blood type B and AB will be available as soon as enough data is accumulated.) Factor 8 Inhib: 0 - 0.7 BU Dilute PT DPT Interpretat: Negative StaClot-LA: StaClot-LA: Negative DRVVT: LA-DRVVT: Negative Test Performed By: [place], [place]. [facility] Specimen of unknown material (specimen) 10/30/2008 12:26 PM VIDEO TECHNICIAN 10/30/2008 12:46 PM VIDEO TECHNICIAN Narrative INTERFACE SYSTEM - 11/06/2008 1:21 PM VIDEO TECHNICIAN Name of test:prolonged ptt need 4 blue tops us Michelle Dominguze CHEMISTRY ORDERABLES Edited Performing Organization Address [facility] de Phone Number INTERFACE SYSTEM Refer to clinic/hospital department [facility] CLIA# [id number] [address] [place] [address] * BLEEDING TIME (10/30/2008 6:00 AM VIDEO TECHNICIAN) BLEEDING TIME 4.5 2.5 - 9.5 min [facility] Blood specimen (specimen) 10/30/2008 6:00 AM VIDEO TECHNICIAN 10/30/2008 6:15 AM VIDEO TECHNICIAN Narrative INTERFACE SYSTEM - 10/30/2008 6:43 AM VIDEO TECHNICIAN LAB TO CONDUCT TEST Michelle Dominguez HEMATOLOGY ORDERABLES Final Re sult Performing Organization Address [facility] de Phone Number INTERFACE SYSTEM Refer to clinic/hospital department [facility] CLIA# [id number] [address] [place] [address] * ABORH TYPING (10/30/2008 5:23 AM VIDEO TECHNICIAN) HISTORY CHECK History Checked [facility] ABO/RH TYPE O Positive [facility] SPECIMEN LIFE 3 days from drawdate [facility] 10/30/2008 5:23 AM VIDEO TECHNICIAN Nikki Slade MD BLOOD BANK ORDERABLES Edited Performing Organization Address [facility] de Phone Number INTERFACE SYSTEM Refer to clinic/hospital department [facility] CLIA# [id number] [address] [place] [address] * VON WILLEBRAND FACTOR ANTIGEN (10/30/2008 5:00 AM VIDEO TECHNICIAN) VW FACTOR AG 81 U/dL [facility] Comment: Reference values for Von Willebrand Factor Antigen are blood group specific. Reference range for Blood Groups: O is 50 - 170 U/dL A is 60 - 260 U/dL B or AB is 90 - 280 U/dL Performed by [facility] [place], [place]. Blood specimen (specimen) 10/30/2008 5:00 AM VIDEO TECHNICIAN 10/30/2008 5:23 AM VIDEO TECHNICIAN Narrative INTERFACE SYSTEM - 11/05/2008 6:44 AM VIDEO TECHNICIAN Pt. on Heparin/Coumadin(which)? Nikki Slade MD HEMATOLOGY ORDERABLES Final Re sult Performing Organization Address [facility] Co de Phone Number INTERFACE SYSTEM Refer to clinic/hospital department [facility] CLIA# [id number] [address] [place] [address] * FACTOR VIII ASSAY (10/30/2008 5:00 AM VIDEO TECHNICIAN) FACTOR VIII ASSAY 87 U/dL [facility] Comment: Factor VIII Activity reference values are blood group specific Reference range for Blood Group O is 45 - 180 U/dL A is 60 - 200 U/dL B or AB is 80 - 225 U/dL Reference ranges apply only to patients >6 months of age. Performed by [facility] [place]. Blood specimen (specimen) 10/30/2008 5:00 AM VIDEO TECHNICIAN 10/30/2008 5:23 AM VIDEO TECHNICIAN Nikki Slade MD HEMATOLOGY ORDERABLES Final Re sult INTERFACE SYSTEM Refer to clinic/hospital department [facility] CLIA# [id number] [address] [place] [address] * (ABNORMAL) DIC PROFILE (10/30/2008 5:00 AM VIDEO TECHNICIAN) INR 0.9 0.9 - 1.1 [facility] Comment: INR Therapeutic Range: Adult: 2.0 - 3.0 for pulmonary embolism or prophylaxis against venous thrombosis or systemic embolization. 2.0 - 3.0 for patients with tissue heart valves. 2.5 - 3.5 for patients with mechanical heart valves or post VA. Pediatric (12 years and under): 1.5 - 3.0 Although the target range in children is not well established, INR values of 1.5 - 3.0 are recommended for most patients. Higher values have been used in children with prosthetic cardiac valves and hereditary clotting disorders. (<3 days) therapeutic ranges have not been established. D.DIMER (CALC) 115 <=210 ng/mL [facility] PTT 40.2(H) 21.1 - 34.8 Seconds [facility] D-DIMER QUANT 0.23 <=0.42 ug/mL FEU [facility] Comment: DVT Screen reference range <0.45 ug/mL FEU D. Dimer Interpretation: The reference range is not clearly established in uncomplicated pregnancies. Values above the upper limit of the reference range are common from the 31st to 40th week of . High negative predictive values for DVT have been reported with the current methodology, as part of a comprehensive medical examination, including risk stratification. PROTIME 12.8 12.4 - 14.7 Seconds [facility] FIBRINOGEN 351 207 - 510 mg/dL [facility] Blood specimen (specimen) 10/30/2008 5:00 AM VIDEO TECHNICIAN 10/30/2008 5:23 AM VIDEO TECHNICIAN us Nikki Slade MD HEMATOLOGY ORDERABLES Edited INTERFACE SYSTEM Refer to clinic/hospital department [facility] CLIA# [id number] [address] [place] [address] * CBC WITH DIFFERENTIAL (10/30/2008 5:00 AM VIDEO TECHNICIAN) HEMOGLOBIN 12.2 11.8 - 14.8 g/dL [facility] MCH 30.8 27.2 - 32.6 pg [facility] MPV 9.6 9.3 - 12.4 fL [facility] WBC 5.0 4.0 - 9.8 K/uL [facility] PLATELETS 250 140 - 350 K/uL [facility] HEMATOCRIT 36.2 35.5 - 44.0 % [facility] RDW-STDEV 40.4 37.1 - 48.7 fL [facility] RBC 3.96 3.90 - 4.90 M/uL [facility] RDW 12.1 11.5 - 14.5 % [facility] MCV 91.4 82.0 - 99.0 fL [facility] MCHC 33.7 31.5 - 35.5 % [facility] MONOCYTE ABSOLUTE 0.43 0.10 - 1.30 K/uL [facility] NEUTROPHILS 58 45 - 70 % [facility] NEUTROPHIL ABSOLUTE 2.90 1.90 - 7.00 K/uL [facility] EOSINOPHILS 5 0 - 7 % [facility] EOSINOPHIL ABSOLUTE 0.23 0.00 - 0.70 K/uL [facility] LYMPHOCYTES 29 16 - 45 % [facility] LYMPHOCYTE ABSOLUTE 1.43 0.70 - 4.50 K/uL [facility] BASOPHILS 0 0 - 2 % [facility] BASOPHILS ABSOLUTE 0.02 0.00 - 0.20 K/uL [facility] MONOCYTES 9 3 - 13 % [facility] Blood specimen (specimen) 10/30/2008 5:00 AM VIDEO TECHNICIAN 10/30/2008 5:23 AM VIDEO TECHNICIAN us Nikki Slade MD HEMATOLOGY ORDERABLES Edited INTERFACE SYSTEM Refer to clinic/hospital department [facility] CLIA# [id number] [address] [place] [address] * CT ABDOMEN PELVIS W CONTRAST (10/29/2008 11:00 AM VIDEO TECHNICIAN) Anatomical Region Laterality Modality Abdomen Other 10/29/2008 11:0 0 AM VIDEO TECHNICIAN Narrative 10/30/2008 4:13 PM VIDEO TECHNICIAN [place] [address] Admit Date: 10/25/2008 DENIA RAY Sex: F Admit Prov: NIKKI SLADE Date: 1975 Primary Care Prov: PCP , NONE CMRN: [id number] Room: [place] [address] SSN: [id number] IMAGING SERVICES Ordering Prov: N/A Accession Number: [id number] Interpretation CT ABDOMEN AND PELVIS WITH IV CONTRAST 10/29/2008 Indication: Abdominal pain. Technique: [address] images were acquired after IV and oral contrast administration. Findings: Comparison is made to exam dated 10/13/2008. Lung bases are clear. Cholecystectomy clips are noted. The spleen, pancreas, and liver are normal in appearance. Adrenals are not enlarged. Kidneys enhancement are clear without hydronephrosis. The bowel is not thickened or dilated. No free air or free fluid is identified. The urinary bladder contains a small amount of fluid. The uterus and adnexa are unremarkable. Osseous structures do not exhibit acute abnormality. Impression: 1. No evidence of acute abnormality. 2. Cholecystectomy changes. . Dictated by: KATIE GOODRICH 10/29/2008 11:20 Electronically signed by: KATIE GOODRICH 10/30/2008 16:12 Transcribed: 10/29/2008 13:42 AMK Procedure Note Katie Goodrich - 10/30/[address] [address] Admit Date: 10/25/2008 DENIA RAY Sex: F Admit Prov: NIKKI SLADE Date: 1975 Primary Care Prov: PCP , NONE CMRN: [id number] Room: [place] [address] SSN: [id number] IMAGING SERVICES Ordering Prov: N/A Interpretation CT ABDOMEN AND PELVIS WITH IV CONTRAST 10/29/2008 Indication: Abdominal pain. Technique: [address] images were acquired after IV and oralcontrast administration. Findings: Comparison is made to exam dated 10/13/2008. Lung bases are clear. Cholecystectomy clips are noted. The spleen, pancreas, and liver are normal in appearance. Adrenals are notenlarged. Kidneys enhancement are clear without hydronephrosis. The bowel isnot thickened or dilated. No free air or free fluid is identified. The urinary bladder contains a small amount of fluid. The uterus andadnexa are unremarkable. Osseous structures do not exhibit acuteabnormality. Impression: 1. No evidence of acute abnormality. 2. Cholecystectomy changes. . Dictated by: KATIE GOODRICH 10/29/2008 11:20 Electronically signed by: KATIE GOODRICH 10/30/2008 16:12 Transcribed: 10/29/2008 13:42 AMK Nik[address] Slade MD [address] ORDERABLES Final Result * XR ABDOMEN W DECUB AND OR ERECT (10/29/2008 10:55 AM VIDEO TECHNICIAN) Anatomical Region Laterality Modality Abdomen Other 10/29/2008 10:5 5 AM VIDEO TECHNICIAN Narrative 10/29/2008 2:26 PM VIDEO TECHNICIAN [place] [address] Admit Date: 10/25/2008 DENIA RAY Sex: F Admit Prov: NIKKI SLADE Date: 1975 Primary Care Prov: PCP , NONE CMRN: [id number] Room: [place] [address] SSN: [id number] IMAGING SERVICES Ordering Prov: N/A Accession Number: [id number] Interpretation OBSTRUCTION SERIES WITHOUT CHEST X-RAY 10/29/2008 History: Abdominal pain, gastrointestinal hemorrhage. Findings: KUB was requested pre- and post-CT examination. Two KUBs are performed. On the first, there is some contrast in the upper abdomen likely representing contrast in the stomach from contrast given for the CT examination. The second image demonstrates some contrast in both kidneys with bilateral renal excretion. No obstruction is seen. Correlation with finding on the CT examination recommended. Minimal contrast is seen in the bladder. Bowel gas pattern is nonspecific without obstruction. Stool is seen throughout the colon. Vascular clips are noted in the right upper quadrant consistent with previous cholecystectomy. Prominent density in the pelvis is likely some stool. Conclusion: 1. Nonspecific gas pattern. 2. Contrast is seen in the stomach and bowel consistent with contrast likely administered for the CT of the abdomen and pelvis. Correlation with the findings on that exam are recommended. 3. There is bilateral renal excretion. The ureters are only minimally visualized. No evidence to suggest obstruction. . Dictated by: BRENNEN TRINIDAD 10/29/2008 11:28 Electronically signed by: BRENNEN TRINIDAD 10/29/2008 14:25 Transcribed: 10/29/2008 13:51 AMK Procedure Note Brennen Trinidad DO - 10/29/[address] [address] Admit Date: 10/25/2008 DENIA RAY Sex: F Admit Prov: NIKKI SLADE Date: 1975 Primary Care Prov: PCP , NONE CMRN: [id number] Room: [place] [id number] SSN: [id number] IMAGING SERVICES Ordering Prov: N/A Interpretation OBSTRUCTION SERIES WITHOUT CHEST X-RAY 10/29/2008 History: Abdominal pain, gastrointestinal hemorrhage. Findings: KUB was requested pre- and post-CT examination. Two KUBsare performed. On the first, there is some contrast in the upper abdomenlikely representing contrast in the stomach from contrast given for the CT examination. The second image demonstrates some contrast in bothkidneys with bilateral renal excretion. No obstruction is seen. Correlationwith finding on the CT examination recommended. Minimal contrast is seenin the bladder. Bowel gas pattern is nonspecific without obstruction. Stoolis seen throughout the colon. Vascular clips are noted in the rightupper quadrant consistent with previous cholecystectomy. Prominent densityin the pelvis is likely some stool. Conclusion: 1. Nonspecific gas pattern. 2. Contrast is seen in the stomach and bowel consistent withcontrast likely administered for the CT of the abdomen and pelvis. Correlationwith the findings on that exam are recommended. 3. There is bilateral renal excretion. The ureters are onlyminimally visualized. No evidence to suggest obstruction. . Dictated by: BRENNEN TRINIDAD 10/29/2008 11:28 Electronically signed by: RBENNEN TRINIDAD 10/29/2008 14:25 Transcribed: 10/29/2008 13:51 AMK us Nikki Slade MD DIAGNOSTIC IMAGING ORDERABLES Final Result * CBC WITH DIFFERENTIAL (10/29/2008 4:05 AM VIDEO TECHNICIAN) WBC 4.3 4.0 - 9.8 K/uL [facility] MPV 9.4 9.3 - 12.4 fL [facility] MCH 30.4 27.2 - 32.6 pg [facility] HEMATOCRIT 36.3 35.5 - 44.0 % [facility] RDW-STDEV 41.2 37.1 - 48.7 fL [facility] RBC 3.91 3.90 - 4.90 M/uL [facility] MCHC 32.8 31.5 - 35.5 % [facility] MCV 92.8 82.0 - 99.0 fL [facility] PLATELETS 243 140 - 350 K/uL [facility] HEMOGLOBIN 11.9 11.8 - 14.8 g/dL [facility] RDW 12.2 11.5 - 14.5 % [facility] NEUTROPHILS 52 45 - 70 % [facility] NEUTROPHIL ABSOLUTE 2.22 1.90 - 7.00 K/uL [facility] EOSINOPHILS 5 0 - 7 % [facility] EOSINOPHIL ABSOLUTE 0.23 0.00 - 0.70 K/uL [facility] LYMPHOCYTES 34 16 - 45 % [facility] LYMPHOCYTE ABSOLUTE 1.47 0.70 - 4.50 K/uL [facility] BASOPHILS 1 0 - 2 % [facility] BASOPHILS ABSOLUTE 0.02 0.00 - 0.20 K/uL [facility] MONOCYTES 8 3 - 13 % [facility] MONOCYTE ABSOLUTE 0.33 0.10 - 1.30 K/uL [facility] Blood specimen (specimen) 10/29/2008 4:05 AM VIDEO TECHNICIAN 10/29/2008 4:11 AM VIDEO TECHNICIAN Nikki Slade MD HEMATOLOGY ORDERABLES Edited INTERFACE SYSTEM Refer to clinic/hospital department [facility] CLIA# [id number] [address] [place] [address] * BASIC METABOLIC PANEL (10/29/2008 4:05 AM VIDEO TECHNICIAN) CHLORIDE 101 96 - 108 mmol/L [facility] BUN 6 6 - 20 mg/dL [facility] CREATININE 0.67 0.51 - 0.95 mg/dL [facility] SODIUM 135 135 - 145 mmol/L [facility] CO2 29 22 - 30 mmol/L [facility] CALCIUM 9.1 8.6 - 10.2 mg/dL [facility] POTASSIUM 4.5 3.5 - 4.9 mmol/L [facility] GLUCOSE 92 65 - 99 mg/dL [facility] GFR, >60 >=60 mL/min/1.7 sq meter [facility] GFR >60 >=60 mL/min/1.7 sq meter [facility] Comment: Modification of Diet in Renal Disease (MDRD) study formula. Estimated GFR rate interpretative information for both Americans and non- Americans is available on the [facility] Intranet at: [email or web address] Select: Lab Policies and Procedures Select: Reference Ranges - GFR Blood specimen (specimen) 10/29/2008 4:05 AM VIDEO TECHNICIAN 10/29/2008 4:11 AM VIDEO TECHNICIAN us Nikki Slade MD CHEMISTRY ORDERABLES Edited Performing Organization Address [facility] Co de Phone Number INTERFACE SYSTEM Refer to clinic/hospital department [facility] CLIA# [id number] [address] [place] [address] * HELICOBACTER PYLORI RAPID UREASE TEST (10/28/2008 4:45 PM VIDEO TECHNICIAN) H. PYLORI RAPID UREASE TEST Negative Negative [facility] Tissue specimen (specimen) 10/28/2008 4:45 PM VIDEO TECHNICIAN 10/28/2008 7:23 PM VIDEO TECHNICIAN us Dino Wharton MD MICROBIOLOGY - GENERAL ORDERABLE S Final Result Performing Organization Address [facility] de Phone Number INTERFACE SYSTEM Refer to clinic/hospital department [facility] CLIA# [id number] [address] [place] [address] * (ABNORMAL) BASIC METABOLIC PANEL (10/28/2008 11:05 AM VIDEO TECHNICIAN) SODIUM 136 135 - 145 mmol/L [facility] CO2 30 22 - 30 mmol/L [facility] POTASSIUM 3.4(L) 3.5 - 4.9 mmol/L [facility] CALCIUM 9.2 8.6 - 10.2 mg/dL [facility] GLUCOSE 86 65 - 99 mg/dL [facility] BUN 5(L) 6 - 20 mg/dL [facility] CHLORIDE 101 96 - 108 mmol/L [facility] CREATININE 0.64 0.51 - 0.95 mg/dL [facility] GFR, >60 >=60 mL/min/1. 7 sq meter [facility] GFR >60 >=60 mL/min/1. 7 sq meter [facility] Comment: Modification of Diet in Renal Disease (MDRD) study formula. Estimated GFR rate interpretative information for both Americans and non- Americans is available on the [facility] Intranet at: [email or web address] Select: Lab Policies and Procedures Select: Reference Ranges - GFR Blood specimen (specimen) 10/28/2008 11:05 AM VIDEO TECHNICIAN 10/28/2008 11:11 AM VIDEO TECHNICIAN Nikki Slade MD CHEMISTRY ORDERABLES Edited Performing Organization Address City/State/[facility] Co de Phone Number INTERFACE SYSTEM Refer to clinic/hospital department [facility] CLIA# [id number] [address] [place] [address] * CT CHEST W CONTRAST (10/28/2008 8:32 AM VIDEO TECHNICIAN) Anatomical Region Laterality Modality Chest Other 10/28/2008 8:32 AM VIDEO TECHNICIAN Narrative 10/28/2008 9:07 AM VIDEO TECHNICIAN [address] [address] Admit Date: 10/25/2008 DENIA RAY Sex: F Admit Prov: NIKKI SLADE Date: 1975 Primary Care Prov: PCP , NONE CMRN: [id number] Room: [place] [id number] SSN: [id number] IMAGING SERVICES Ordering Prov: N/A Accession Number: [id number] Interpretation CT chest with contrast Oct 28, 2008 8:43:18 AM History: Coughing up blood Technique: 5 mm axial images with intravenous [id number] Findings: Thyroid gland is unremarkable. Heart and great vessels are grossly unremarkable. There is no mediastinal or hilar adenopathy. There are several small lymph nodes near the gastroesophageal junction. Gallbladder is surgically absent. The bony thorax shows no acute abnormalities. There is no pleural effusion, pneumothorax, focal consolidation, or pulmonary nodule. Impression: 1. Unremarkable chest CT. . Dictated by: KEON BROTHERS 10/28/2008 09:03 Electronically signed by: KEON BROTHERS 10/28/2008 09:06 Procedure Note [employer]on [employer] - 10/28/[address] [address] Admit Date: 10/25/2008 DENIA RAY Sex: F Admit Prov: NIKKI SLADE Date: 1975 Primary Care Prov: PCP , NONE CMRN: [id number] Room: [place] [address] SSN: [id number] IMAGING SERVICES Ordering Prov: N/A Interpretation CT chest with contrast Oct 28, 2008 8:43:18 AM History: Coughing up blood Technique: 5 mm axial images with intravenous Optiray-[id number] Findings: Thyroid gland is unremarkable. Heart and great vesselsare grossly unremarkable. There is no mediastinal or hilar adenopathy.There are several small lymph nodes near the gastroesophageal junction. Gallbladder is surgically absent. The bony thorax shows no acute abnormalities. There is no pleural effusion, pneumothorax, focal consolidation, or pulmonary nodule. Impression: 1. Unremarkable chest CT. . Dictated by: KEON BROTHERS 10/28/2008 09:03 Electronically signed by: KEON BROTHERS 10/28/2008 09:[address] ORDERABLES Final Result * (ABNORMAL) CBC WITH DIFFERENTIAL (10/28/2008 3:40 AM VIDEO TECHNICIAN) MCHC 32.4 31.5 - 35.5 % [facility] PLATELETS 242 140 - 350 K/uL [facility] MCV 93.4 82.0 - 99.0 fL [facility] HEMOGLOBIN 11.5(L) 11.8 - 14.8 g/dL [facility] RDW 12.1 11.5 - 14.5 % [facility] WBC 4.8 4.0 - 9.8 K/uL [facility] MCH 30.3 27.2 - 32.6 pg [facility] MPV 9.6 9.3 - 12.4 fL [facility] HEMATOCRIT 35.5 35.5 - 44.0 % [facility] RDW-STDEV 41.1 37.1 - 48.7 fL [facility] RBC 3.80(L) 3.90 - 4.90 M/uL [facility] BASOPHILS 1 0 - 2 % [facility] BASOPHILS ABSOLUTE 0.03 0.00 - 0.20 K/uL [facility] MONOCYTES 10 3 - 13 % [facility] MONOCYTE ABSOLUTE 0.48 0.10 - 1.30 K/uL [facility] NEUTROPHILS 43(L) 45 - 70 % [facility] NEUTROPHIL ABSOLUTE 2.02 1.90 - 7.00 K/uL [facility] EOSINOPHILS 4 0 - 7 % [facility] EOSINOPHIL ABSOLUTE 0.20 0.00 - 0.70 K/uL [facility] LYMPHOCYTES 43 16 - 45 % [facility] LYMPHOCYTE ABSOLUTE 2.03 0.70 - 4.50 K/uL [facility] Blood specimen (specimen) 10/28/2008 3:40 AM VIDEO TECHNICIAN 10/28/2008 4:03 AM VIDEO TECHNICIAN Nikki Slade MD HEMATOLOGY ORDERABLES Edited Performing Organization Address [facility] de Phone Number INTERFACE SYSTEM Refer to clinic/hospital department [facility] CLIA# [id number] [address] [place] [address] * (ABNORMAL) PHENYTOIN LEVEL, TOTAL (10/27/2008 6:05 AM VIDEO TECHNICIAN) Pathologist [facility] PHENYTOIN TOTAL 1.8(L) 10.0 - 20.0 ug/mL [facility] Comment:NOTE: New methodolog y; effective 01/08/08. Blood specimen (specimen) 10/27/2008 6:05 AM VIDEO TECHNICIAN 10/27/2008 6:12 AM VIDEO TECHNICIAN Nikki Slade MD CHEMISTRY ORDERABLES Final Res ult Performing Organization Address [facility] de Phone Number INTERFACE SYSTEM Refer to clinic/hospital department [facility] CLIA# [id number] [address] [place] [address] * (ABNORMAL) BASIC METABOLIC PANEL (10/27/2008 6:05 AM VIDEO TECHNICIAN) POTASSIUM 3.0(L) 3.5 - 4.9 mmol/L [facility] BUN 10 6 - 20 mg/dL [facility] GLUCOSE 99 65 - 99 mg/dL [facility] CHLORIDE 99 96 - 108 mmol/L [facility] SODIUM 136 135 - 145 mmol/L [facility] CREATININE 0.68 0.51 - 0.95 mg/dL [facility] CO2 33(H) 22 - 30 mmol/L [facility] CALCIUM 8.7 8.6 - 10.2 mg/dL [facility] GFR, >60 >=60 mL/min/1. 7 sq meter [facility] GFR >60 >=60 mL/min/1. 7 sq meter [facility] Comment: Modification of Diet in Renal Disease (MDRD) study formula. Estimated GFR rate interpretative information for both Americans and non- Americans is available on the [facility] Intranet at: [email or web address] Select: Lab Policies and Procedures Select: Reference Ranges - GFR Blood specimen (specimen) 10/27/2008 6:05 AM VIDEO TECHNICIAN 10/27/2008 6:12 AM VIDEO TECHNICIAN Nikki Slade MD CHEMISTRY ORDERABLES Edited INTERFACE SYSTEM Refer to clinic/hospital department [facility] CLIA# [id number] [address] [place] [address] * (ABNORMAL) CBC WITH DIFFERENTIAL (10/27/2008 6:05 AM VIDEO TECHNICIAN) MCV 91.9 82.0 - 99.0 fL [facility] PLATELETS 210 140 - 350 K/uL [facility] HEMOGLOBIN 10.7(L) 11.8 - 14.8 g/dL [facility] RDW 12.1 11.5 - 14.5 % [facility] WBC 4.7 4.0 - 9.8 K/uL [facility] MPV 9.6 9.3 - 12.4 fL [facility] MCH 29.7 27.2 - 32.6 pg [facility] HEMATOCRIT 33.1(L) 35.5 - 44.0 % [facility] RDW-STDEV 41.1 37.1 - 48.7 fL [facility] RBC 3.60(L) 3.90 - 4.90 M/uL [facility] MCHC 32.3 31.5 - 35.5 % [facility] LYMPHOCYTE ABSOLUTE 1.55 0.70 - 4.50 K/uL [facility] BASOPHILS 0 0 - 2 % [facility] BASOPHILS ABSOLUTE 0.02 0.00 - 0.20 K/uL [facility] MONOCYTES 10 3 - 13 % [facility] MONOCYTE ABSOLUTE 0.47 0.10 - 1.30 K/uL [facility] NEUTROPHILS 51 45 - 70 % [facility] NEUTROPHIL ABSOLUTE 2.38 1.90 - 7.00 K/uL [facility] EOSINOPHILS 5 0 - 7 % [facility] EOSINOPHIL ABSOLUTE 0.24 0.00 - 0.70 K/uL [facility] LYMPHOCYTES 33 16 - 45 % [facility] Blood specimen (specimen) 10/27/2008 6:05 AM VIDEO TECHNICIAN 10/27/2008 6:12 AM VIDEO TECHNICIAN Nikki Slade MD HEMATOLOGY ORDERABLES Edited INTERFACE SYSTEM Refer to clinic/hospital department [facility] CLIA# [id number] [address] [place] [address] * (ABNORMAL) CBC WITH DIFFERENTIAL (10/26/2008 5:10 AM VIDEO TECHNICIAN) MPV 9.5 9.3 - 12.4 fL [facility] MCH 29.7 27.2 - 32.6 pg [facility] HEMATOCRIT 36.4 35.5 - 44.0 % [facility] RDW-STDEV 41.9 37.1 - 48.7 fL [facility] RBC 3.94 3.90 - 4.90 M/uL [facility] MCHC 32.1 31.5 - 35.5 % [facility] MCV 92.4 82.0 - 99.0 fL [facility] PLATELETS 235 140 - 350 K/uL [facility] HEMOGLOBIN 11.7(L) 11.8 - 14.8 g/dL [facility] RDW 12.3 11.5 - 14.5 % [facility] WBC 3.9(L) 4.0 - 9.8 K/uL [facility] EOSINOPHILS 5 0 - 7 % [facility] EOSINOPHIL ABSOLUTE 0.20 0.00 - 0.70 K/uL [facility] LYMPHOCYTES 46(H) 16 - 45 % [facility] LYMPHOCYTE ABSOLUTE 1.82 0.70 - 4.50 K/uL [facility] BASOPHILS 1 0 - 2 % [facility] BASOPHILS ABSOLUTE 0.02 0.00 - 0.20 K/uL [facility] MONOCYTES 13 3 - 13 % [facility] MONOCYTE ABSOLUTE 0.50 0.10 - 1.30 K/uL [facility] NEUTROPHILS 36(L) 45 - 70 % [facility] NEUTROPHIL ABSOLUTE 1.40(L) 1.90 - 7.00 K/uL [facility] Blood specimen (specimen) 10/26/2008 5:10 AM VIDEO TECHNICIAN 10/26/2008 5:15 AM VIDEO TECHNICIAN Nikki Slade MD HEMATOLOGY ORDERABLES Edited Performing Organization Address City/[facility] Co de Phone Number INTERFACE SYSTEM Refer to clinic/hospital department [facility] CLIA# [id number] [address] [place] [address] * MRSA CULTURE (10/25/2008 8:45 PM VIDEO TECHNICIAN) PRELIMINARY REPORT Pending [facility] FINAL REPORT No methicillin resistant Staphylococcus aureus isolated. [facility] Gabe 10/25/2008 8:45 PM VIDEO TECHNICIAN 10/25/2008 8:56 PM VIDEO TECHNICIAN Narrative INTERFACE SYSTEM - 10/27/2008 7:55 AM VIDEO TECHNICIAN er 14 Kishan Rondon MD MICROBIOLOGY - GENERAL ORDERABL ES Final Result INTERFACE SYSTEM Refer to clinic/hospital department [facility] CLIA# [id number] [address] [place] [address] * XR ABDOMEN ACUTE SERIES W CXR (10/25/2008 7:10 PM VIDEO TECHNICIAN) Anatomical Region Laterality Modality Abdomen Other 10/25/2008 7:10 PM VIDEO TECHNICIAN Narrative 10/26/2008 11:10 AM VIDEO TECHNICIAN [address] [address] Admit Date: 10/25/2008 DENIA RAY Sex: F Admit Prov: NIKKI SLADE Date: 1975 Primary Care Prov: PCP , NONE CMRN: [id number] Room: [place] [address] SSN: [id number] IMAGING SERVICES Ordering Prov: N/A Accession Number: [id number] Interpretation OBSTRUCTION SERIES WITH CHEST 3 PROJECTIONS, 10/25/08 Clinical History: Abdominal pain. Findings: There are surgical clips in the right upper quadrant of the abdomen. The bowel gas pattern is within normal limits. There is no evidence for obstruction or free air. The lungs are clear, and there is no pleural effusion or pneumothorax. The heart and mediastinum appear normal. Conclusion: Negative examination. . Dictated by: CHIDI HSU 10/26/2008 08:31 Electronically signed by: CHIDI HSU 10/26/2008 11:09 Transcribed: 10/26/2008 09:56 LE Procedure Note Provider, Historical - 10/26/[address] [address] Admit Date: 10/25/2008 DENIA RAY Sex: F Admit Prov: NIKKI SLADE Date: 1975 Primary Care Prov: PCP , NONE CMRN: [id number] Room: [place] [address] SSN: [id number] IMAGING SERVICES Ordering Prov: N/A Interpretation OBSTRUCTION SERIES WITH CHEST 3 PROJECTIONS, 10/25/08 Clinical History: Abdominal pain. Findings: There are surgical clips in the right upper quadrant ofthe abdomen. The bowel gas pattern is within normal limits. There is no evidence for obstruction or free air. The lungs are clear, and thereis no pleural effusion or pneumothorax. The heart and mediastinum appearnormal. Conclusion: Negative examination. . Dictated by: CHIDI HSU 10/26/2008 08:31 Electronically signed by: CHIDI HSU 10/26/2008 11:09 Transcribed: 10/26/2008 09:56 LE Kishan Rondon MD DIAGNOSTIC IMAGING ORDERABLES F inal Result * CBC WITH DIFFERENTIAL (10/25/2008 6:40 PM VIDEO TECHNICIAN) RBC 4.19 3.90 - 4.90 M/uL [facility] MCHC 33.3 31.5 - 35.5 % [facility] MCV 90.9 82.0 - 99.0 fL [facility] PLATELETS 251 140 - 350 K/uL [facility] HEMOGLOBIN 12.7 11.8 - 14.8 g/dL [facility] RDW 12.4 11.5 - 14.5 % [facility] WBC 4.6 4.0 - 9.8 K/uL [facility] MPV 9.8 9.3 - 12.4 fL [facility] MCH 30.3 27.2 - 32.6 pg [facility] HEMATOCRIT 38.1 35.5 - 44.0 % [facility] RDW-STDEV 40.8 37.1 - 48.7 fL [facility] BASOPHILS 0 0 - 2 % [facility] BASOPHILS ABSOLUTE 0.02 0.00 - 0.20 K/uL [facility] MONOCYTES 9 3 - 13 % [facility] MONOCYTE ABSOLUTE 0.42 0.10 - 1.30 K/uL [facility] NEUTROPHILS 58 45 - 70 % [facility] NEUTROPHIL ABSOLUTE 2.64 1.90 - 7.00 K/uL [facility] EOSINOPHILS 2 0 - 7 % [facility] EOSINOPHIL ABSOLUTE 0.10 0.00 - 0.70 K/uL [facility] LYMPHOCYTES 31 16 - 45 % [facility] LYMPHOCYTE ABSOLUTE 1.40 0.70 - 4.50 K/uL [facility] Blood specimen (specimen) 10/25/2008 6:40 PM VIDEO TECHNICIAN 10/25/2008 6:53 PM VIDEO TECHNICIAN Ksihan Rondon MD HEMATOLOGY ORDERABLES Edited Performing Organization Address City/[facility] de Phone Number INTERFACE SYSTEM Refer to clinic/hospital department [facility] CLIA# [id number] [address] [place] [address] * HEPATIC FUNCTION PANEL (10/25/2008 6:40 PM VIDEO TECHNICIAN) BILIRUBIN DIRECT <0.2 0.0 - 0.3 mg/dL [facility] ALKALINE PHOSPHATASE 63 35 - 104 U/L [facility] TOTAL PROTEIN 7.3 6.0 - 8.3 g/dL [facility] BILIRUBIN TOTAL 0.3 0.2 - 1.0 mg/dL [facility] ALT 17 0 - 31 U/L [facility] ALBUMIN 4.4 3.4 - 4.8 g/dL [facility] AST 18 12 - 32 U/L [facility] Blood specimen (specimen) 10/25/2008 6:40 PM VIDEO TECHNICIAN 10/25/2008 6:53 PM VIDEO TECHNICIAN Kishan Rondon MD CHEMISTRY ORDERABLES Final Resu lt Performing Organization Address City/[facility] de Phone Number INTERFACE SYSTEM Refer to clinic/hospital department [facility] CLIA# [id number] [address] [place] [address] * LIPASE (10/25/2008 6:40 PM VIDEO TECHNICIAN) LIPASE 17 13 - 60 U/L [facility] Blood specimen (specimen) 10/25/2008 6:40 PM VIDEO TECHNICIAN 10/25/2008 6:53 PM VIDEO TECHNICIAN Kishan Rondon MD CHEMISTRY ORDERABLES Final Resu lt INTERFACE SYSTEM Refer to clinic/hospital department [facility] CLIA# [id number] [address] [place] [address] * (ABNORMAL) BASIC METABOLIC PANEL (10/25/2008 6:40 PM VIDEO TECHNICIAN) CO2 25 22 - 30 mmol/L [facility] CALCIUM 9.5 8.6 - 10.2 mg/dL [facility] POTASSIUM 3.4(L) 3.5 - 4.9 mmol/L [facility] GLUCOSE 97 65 - 99 mg/dL [facility] CHLORIDE 105 96 - 108 mmol/L [facility] BUN 15 6 - 20 mg/dL [facility] CREATININE 0.57 0.51 - 0.95 mg/dL [facility] SODIUM 138 135 - 145 mmol/L [facility] GFR, >60 >=60 mL/min/1. 7 sq meter [facility] GFR >60 >=60 mL/min/1. 7 sq meter [facility] Comment: Modification of Diet in Renal Disease (MDRD) study formula. Estimated GFR rate interpretative information for both Americans and non- Americans is available on the [facility] Intranet at: [email or web address] Select: Lab Policies and Procedures Select: Reference Ranges - GFR Blood specimen (specimen) 10/25/2008 6:40 PM VIDEO TECHNICIAN 10/25/2008 6:53 PM VIDEO TECHNICIAN Kishan Rondon MD CHEMISTRY ORDERABLES Edited Performing Organization Address [facility] Co de Phone Number INTERFACE SYSTEM Refer to clinic/hospital department [facility] CLIA# [id number] [address] [place] [address] * DRUG SCREEN, URINE (10/25/2008 6:05 PM VIDEO TECHNICIAN) COMMENT, TOXICOLOGY See Separate Comment [facility] Comment: The urine sample was not handled as a legal specimen and was received without a chain of custody. The results should be used only for medical purposes. A confirmation is recommended for all presumptive positive results. A negative result indicates the analyte, if present, is below the screening threshold. Drug Ref. Range Screening Threshold Amphetamines Negative 1000 ng/mL Barbiturates Negative 200 ng/mL Benzodiazepines Negative 100 ng/mL Cannabinoids Negative 50 ng/mL Cocaine Metabolite Negative 300 ng/mL Opiate Negative 300 ng/mL Phencyclidine Negative 25 ng/mL NOTE: New Screening Threshold for Amphetamines effective February 21, 2008. AMPHETAMINE QUAL, URINE Negative [facility] BARBITURATE QUAL, URINE Negative [facility] BENZODIAZEPINE QUAL, URINE Presumptive Positive [facility] CANNABINOIDS QUAL, URINE Presumptive Positive [facility] COCAINE QUAL URINE Negative [facility] OPIATE QUAL, URINE Negative [facility] PCP QUAL, URINE Negative [facility] Urine specimen (specimen) 10/25/2008 6:05 PM VIDEO TECHNICIAN 10/25/2008 7:13 PM VIDEO TECHNICIAN Kishan Rondno MD URINE ORDERABLES Edited Performing Organization Address City/[facility] Co de Phone Number INTERFACE SYSTEM Refer to clinic/hospital department [facility] CLIA# [id number] [address] [place] [address] * URINE CULTURE (10/25/2008 6:05 PM VIDEO TECHNICIAN) PRELIMINARY REPORT Pending [facility] FINAL REPORT 10-50,000 colonies/mL Polymicrobial growth consistent with normal urethral anay [facility] 10/25/2008 6:05 PM VIDEO TECHNICIAN 10/25/2008 8:01 PM VIDEO TECHNICIAN Kishan Rondon MD MICROBIOLOGY - GENERAL ORDERABL ES Final Result Performing Organization Address City/[facility]/ZIP Co de Phone Number INTERFACE SYSTEM Refer to clinic/hospital department [facility] CLIA# [id number] [address] [place] [address] * (ABNORMAL) URINALYSIS (10/25/2008 6:05 PM VIDEO TECHNICIAN) CLARITY UA Cloudy(A) Clear [facility] PROTEIN UA Trace(A) Negative [facility] BLOOD UA 4+(A) Negative [facility] LEUKOCYTE ESTERASE UA Negative Negative [facility] UROBILINOGEN UA <1 <1 mg/dL [facility] SPECIFIC GRAVITY UA 1.025 1.001 - 1.035 [facility] GLUCOSE UA Negative Negative [facility] COLOR UA Yellow [facility] NITRITE UA Negative Negative [facility] BILIRUBIN UA Negative Negative [facility] PH UA 5.0 5.0 - 8.0 [facility] KETONES UA Negative Negative [facility] BACTERIA UA None Seen None Seen /HPF [facility] WBC UA 0-5 0 - 5 /HPF [facility] EPITHELIAL CELLS, URINE 2-5 /HPF [facility] RBC UA 50-100(A) 0 - 2 /HPF [facility] MUCOUS, URINE 2+ [facility] 10/25/2008 6:05 PM VIDEO TECHNICIAN 10/25/2008 6:54 PM VIDEO TECHNICIAN Kishan Rondon MD URINE ORDERABLES Edited Performing Organization Address [facility] de Phone Number INTERFACE SYSTEM Refer to clinic/hospital department [facility] CLIA# [id number] [address] [place] [address] * URINALYSIS WITH REFLEX CULTURE (10/25/2008 6:05 PM VIDEO TECHNICIAN) URINE CULTURE ORDER Culture ordered [facility] Comment: Criteria for a reflex culture include one or more of the following: Abnormal WBCs, RBCs or bacteria. Lack of qualifying criteria does not exclude the possibility of a urinary tract infection. Dilute urine, drug interference, etc. may decrease the sensitivity of the criteria analytes. Urine specimen (specimen) 10/25/2008 6:05 PM VIDEO TECHNICIAN 10/25/2008 6:54 PM VIDEO TECHNICIAN Kishan Rondon MD URINE ORDERABLES Final Result Performing Organization Address [facility] Phone Number INTERFACE SYSTEM Refer to clinic/hospital department [facility] CLIA# [id number] [address] [place] [address] * HCG QUALITATIVE, URINE (10/25/2008 6:05 PM VIDEO TECHNICIAN) HCG QUAL URINE Negative Negative [facility] SPECIFIC GRAVITY UA 1.025 1.001 - 1.035 [facility] Urine specimen (specimen) 10/25/2008 6:05 PM VIDEO TECHNICIAN 10/25/2008 6:54 PM VIDEO TECHNICIAN Kishan Rondon MD URINE ORDERABLES Final Result Performing Organization Address [facility] de Phone Number INTERFACE SYSTEM Refer to clinic/hospital department [facility] CLIA# [id number] [address] [place] [address] documented in this encounter Visit Diagnoses Diagnosis Hemorrhage of gastrointestinal tract, unspecified Gross hematuria Hematemesis Other primary cardiomyopathies (CMS/HCC) Other primary cardiomyopathies Hemoptysis Tobacco use disorder Cannabis abuse, unspecified Unspecified epilepsy without mention of intractable epilepsy (CMS/HCC) Unspecified epilepsy without mention of intractable epilepsy Other voice and resonance disorders Abdominal pain, unspecified site Abnormal coagulation profile Personal history of noncompliance with medical treatment, presenting hazards to health Personal history of urinary calculi documented in this encounter Care Teams Broom Stitcher Relationship Specialty Start Date End Date Mike Desouza MD [address] [id number] PCP - General 11/02/23 documented as of this encounter
--- OUTSIDE RECORDS SUMMARY | 2025-04-02 10:14 | XMS_ITS | Encounter Summary ---
Author Organization [employer] Address [address] [place] [address] Care Team Providers Care Furniture Packer Name Role Phone Mike Desouza MD Primary Care Provider +1 [phone] Encounter Details Date Type Department Care Team (Late st Contact Info) Description 07/11/1999 Outpatient Historical HIS EMERGENCY ROOM [facility] Anderson Hamlin, [address] [facility] [address] [place] [address] Er, Authorized P NO ADDRESS ON FILE Other specified noninflammatory disorder of vagina (Primary Dx) Social History Tobacco Use Types Packs/Day Years Used Date Smoking Tobacco: Never Assessed Comments Unknown Sex and Gender Information Value Date Recorded Sex Assigned at Not on file Legal Sex Female 2:42 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
--- OUTSIDE RECORDS SUMMARY | 2025-04-02 10:14 | XMS_ITS | Encounter Summary ---
Author Organization [employer] Address [address] [place] [address] Care Team Providers Care Window Display Designer Name Role Phone Mike Desouza MD Primary Care Provider +1 [phone] Encounter Details Date Type Department Care Team (Latest Contact Info) Description 05/26/1999 Outpatient Historical HIS OBSERVATION BED Akbar Gautam MD [address] [place] [address] Guillaume Godinez MD NO ADDRESS ON FILE Other specified complication, antepartum(646.83) (Primary Dx) Social History Tobacco Use Types Packs/Day Years Used Date Smoking Tobacco: Never Assessed Comments Unknown Sex and Gender Information Value Date Recorded Sex Assigned at Not on file 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
--- OUTSIDE RECORDS SUMMARY | 2025-04-02 10:14 | XMS_ITS | Encounter Summary ---
Author Organization [employer] Address [address] [place] [address] Care Team Providers Care Head End Desizing Machine Operator Name Role Phone Mike Desouza MD Primary Care Provider [phone] Encounter Details Date Type Department Care Team (Latest Contact Info) Description 09/13/2000 Outpatient Historical HIS OBSERVATION BED Guillaume Godinez MD NO ADDRESS ON FILE Corpus luteum cyst or hematoma (Primary Dx) Social History Tobacco Use Types Packs/Day Years Used Date Smoking Tobacco: Never Assessed Comments Unknown Sex and Gender Information Value Date Recorded Sex Assigned at Not on file Legal Sex Female 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 DIGITAL ADVERTISING Gender Identity Not on file Sexual Orientation Not on file documented as of this encounter Plan of Treatment Not on file documented as of this encounter Visit Diagnoses Diagnosis Corpus luteum cyst or hematoma- Primary documented in this encounter Care Teams Head End Desizing Machine Operator Relationship Specialty Start Date End Date Mike Desouza MD [facility] [address] [place] [address] PCP - General 11/02/23 documented as of this encounter
--- OUTSIDE RECORDS SUMMARY | 2025-04-02 10:14 | XMS_ITS | Encounter Summary ---
Author Organization [employer] Address [address] [place] [address] Care Team Providers Care Materials Analyst Name Role Phone Mike Desouza MD Primary Care Provider [phone] [phone] Encounter Details Date Type Department Care Team (Latest Contact Info) Description 12/16/2001 Inpatient Historical HIS PATIENT IN A BED Guillaume Godinez MD NO ADDRESS ON FILE FEMALE GENITAL SYMPTOMS NOS (Primary Dx) Social History Tobacco Use Types Packs/Day Years Used Date Smoking Tobacco: Never Assessed Comments Unknown Sex and Gender Information Value Date Recorded Sex Assigned at Not on file Legal Sex Female 2:42 AM FORENSIC DOCUMENT EXAMINER Gender Identity Not on file Sexual Orientation Not on file documented as of this encounter Plan of Treatment Not on file documented as of this encounter Visit Diagnoses Diagnosis Unspecified symptom associated with female genital organs- Primary documented in this encounter Care Teams Materials Analyst Relationship Specialty Start Date End Date Mike Desouza MD [address] [place] [address] [place] [address] PCP - General 11/02/23 documented as of this encounter
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
--- OUTSIDE RECORDS SUMMARY | 2025-04-02 10:14 | XMS_ITS | Encounter Summary ---
Author Organization [employer] Address 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
--- OUTSIDE RECORDS SUMMARY | 2025-04-02 10:14 | XMS_ITS | Encounter Summary ---
Author Organization [employer] Address 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
--- OUTSIDE RECORDS SUMMARY | 2025-04-02 10:14 | XMS_ITS | Encounter Summary ---
Author Organization [facility] Address 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 Sex Female 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 SPECIAL 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 Gender Identity Not on file Sexual Orientation Not on file documented as of this encounter Plan of Treatment Not on file documented as of this encounter Procedures Procedure Name Priority Date/Time Associated Diagnosis Comments URINALYSIS W/REFLEX MICROSCOPIC Stat 12/01/2008 11:49 AM DIRECTOR SPECIAL EDUCATION documented in this encounter Results * (ABNORMAL) URINALYSIS (12/01/2008 11:49 AM DIRECTOR SPECIAL EDUCATION) SPECIFIC GRAVITY UA 1.025 1.001 - 1.035 [facility] GLUCOSE UA Negative Negative [facility] COLOR UA Yellow [facility] NITRITE UA Negative Negative [facility] BILIRUBIN UA Negative Negative [facility] PH UA 5.0 5.0 - 8.0 [facility] KETONES UA Negative Negative [facility] CLARITY UA Cloudy(A) Clear [facility] BLOOD UA 4+(A) Negative [facility] PROTEIN UA Trace(A) Negative [facility] LEUKOCYTE ESTERASE UA Trace(A) Negative [facility] UROBILINOGEN UA <1 <1 mg/dL [facility] MICRO COMMENT Spermatozoa present [facility] BACTERIA UA None Seen None Seen /HPF [facility] WBC UA 5-10(A) 0 - 5 /HPF [facility] EPITHELIAL CELLS, URINE 2-5 /HPF [facility] RBC UA Many(A) 0 - 2 /HPF [facility] 12/01/2008 11:4 9 AM DIRECTOR SPECIAL EDUCATION 12/01/2008 11:58 AM DIRECTOR SPECIAL EDUCATION us Reggie Ramirez MD URINE ORDERABLES Edited INTERFACE SYSTEM Refer to clinic/hospital department [facility] CLIA# [id number] [address] [place] [address] documented in this encounter Visit Diagnoses Not on filedocumented in this encounter Care Teams Tobacco Prizer Relationship Specialty Start Date End Date Mike Desouza MD [address] [place] [phone] PCP - General 11/02/23 documented as of this encounter
--- OUTSIDE RECORDS SUMMARY | 2025-04-02 10:14 | XMS_ITS ---
Author Organization Unknown Address [address] [place] [phone] Phone Care Team Providers Care Manager Of Tires Sales Name Role Phone CASSIE CHAVARRIA Attending Unavailable NO PCP Primary Unavailable Results URINE DRUG SCREEN 12 PANEL R APID - Collect Date/Time: 09/02/2023 16:10 [facility] [id number] [place] [address], [phone] LOINC: Test Value Unit Reference Range Code Code System Flag THC POSITIVE A PCP NEGATIVE COCAINE NEGATIVE 16251-5 LOINC METHAMPHETAMINES NEGATIVE OPIATES NEGATIVE AMPHETAMINES NEGATIVE 11923-6 LOINC BENZO NEGATIVE 35038-1 LOINC TCA NEGATIVE METHADONE NEGATIVE BARBITUATES NEGATIVE OXYCODONE NEGATIVE URINALYSIS w/Microscopy/C&S if indicated - Collect Date/Time: 09/02/2023 16:10 [facility] [id number] [place] [address], [phone] LOINC: 27627-3 Test Value Unit Reference Range Code Code System Flag UR SOURCE UNKNOWN 03410-3 LOINC COLOR RED YELLOW 5778-6 LOINC A CLARITY CLOUDY CLEAR 14124-4 LOINC SPEC GRAVITY >=1.030 1.000-1.030 5811-5 LOINC A PH 5.5 5.0 - 6.5 5803-2 LOINC LEUK EST NEGATIVE NEGATIVE 5799-2 LOINC NITRATE POSITIVE NEGATIVE A PROTEIN 2+ NEGATIVE 5804-0 LOINC A GLUCOSE NEGATIVE NEGATIVE 66926-1 LOINC KETONES TRACE NEGATIVE 89297-9 LOINC A UROBILINOGEN 1.0 NEGATIVE 5818-0 LOINC BILIRUBIN NEGATIVE NEGATIVE 14672-0 LOINC BLOOD 3+ NEGATIVE 23167-4 LOINC WBC 0-2 0 - 2 84886-7 LOINC RBC TNTC 0 - 2 00841-4 LOINC A EPITHELIAL OCCASIONA RARE-FEW 95952-4 LOINC BACTERIA MANY NONE SEEN 46085-2 LOINC A MUCUS NONE SEEN NONE SEEN 8247-9 LOINC YEAST NOT PRESENT NOT PRESENT 69255-2 LOINC CASTS NONE SEEN 44950-4 LOINC CRYSTALS NONE SEEN 72221-0 LOINC CULTURE? YES 8251-1 LOINC DIAGNOSIS N/A CBC W/ DIFF - Collect Date/T maria l: 09/02/2023 16:05 [facility] [id number] [address] [place], [place], [phone] LOINC: 66229-8 Test Value Unit Reference Range Code Code System Flag WBC 8.9 10^3uL L=4.8 H=10.8 RBC 3.62 10^6uL L=4.20 H=5.40 L HEMOGLOBIN 12.2 g/dL L=12.0 H=16.0 718-7 LOINC HEMATOCRIT 35.0 VOL% L=37.0 H=47.0 4544-3 LOINC L MCV 96.7 fL L=81.0 H=99.0 MCH 33.7 pg L=27.0 H=32.0 H MCHC 34.9 g/dL L=32.0 H=36.0 PLATELETS 665 10^3uL L=100 H=400 73223-3 LOINC H RDW 14.7 % L=11.7 H=15.5 %GRAN 60.4 % L=40.0 H=70.0 88103-1 LOINC %LYMPH 28.0 % L=20.0 H=45.0 736-9 LOINC %MONO 7.9 % L=2.0 H=10.0 89843-1 LOINC %EOS 2.2 % L=0.0 H=6.0 713-8 LOINC %BASO 1.2 % L=0.0 H=3.0 706-2 LOINC #NEUT 5.4 10^3uL L=1.9 H=7.6 71429-9 LOINC #LYMPH 2.5 10^3uL L=0.9 H=4.9 06995-8 LOINC #MONO 0.7 10^3uL L=0.1 H=0.9 59047-8 LOINC #EOS 0.2 10^3uL L=0.0 H=0.6 712-0 LOINC #BASO 0.11 10^3uL L=0.00 H=0.10 91880-8 LOINC H #IM GRANS 0.0 10^3uL L=0.0 H=7.0 35850-2 LOINC %IM GRANS 0.3 % L=0.0 H=5.0 18335-7 LOINC %NRB 0.0 L=0.0 H=0.2 60828-4 LOINC #NRB 0.000 L=0.000 H=0.012 99475-7 LOINC MANUAL DIFF NOT INDICATED RBC MORPH NOT INDICATED COMPREHENSIVE METABOLIC PANE L - Collect Date/Time: 09/02/2023 16:05 [facility] [id number] [address] [place], [place], [phone] LOINC: 02915-3 Test Value Unit Reference Range Code Code System Flag FASTING UNKNOWN BUN 18 mg/dL L=7 H=20 3094-0 LOINC CREATININE 0.60 mg/dL L=0.52 H=1.04 2160-0 LOINC GLUCOSE 91 mg/dL L=74 H=106 2345-7 LOINC SODIUM 138 mmol/L L=132 H=144 2951-2 LOINC POTASSIUM 4.4 mmol/L L=3.5 H=5.1 2823-3 LOINC CHLORIDE 104 mmol/L L=98 H=107 2075-0 LOINC CO2 26.0 mmol/L L=22.0 H=30.0 2028-9 LOINC ANION GAP 12 L=10 H=20 56871-8 LOINC OSMOLALITY 287 mOs/kG L=280 H=296 05114-1 LOINC BUN/CREAT 30.0 3097-3 LOINC CALCIUM 9.8 mg/dL L=8.3 H=10.5 69416-4 LOINC AST 22 U/L L=15 H=46 1920-8 LOINC ALT 21 U/L L=9 H=72 1742-6 LOINC ALKALINE PHOS 74 U/L L=38 H=126 6768-6 LOINC TOTAL BILI < 0.1 mg/dL L=0.2 H=1.3 1975-2 LOINC L ALBUMIN 4.6 G/dL L=3.5 H=5.0 1751-7 LOINC TOTAL PROTEIN 8.5 g/L L=6.3 H=8.2 2885-2 LOINC H A/G RATIO 1.2 94370-1 LOINC AGE 47 99837-9 LOINC eGFR NON-AFR 115 ml/min eGFR AFR AMER 139 ml/min CT ABD/PEL WO CONTRAST - Com pleted: 09/02/2023 16:47 LOINC: 96082-7 EXAM DESCRIPTION: CT ABD/PEL WO CONTRAST REASON FOR STUDY: Right-sided abdominal pain starting today. TECHNIQUE: CT scan of the abdomen and pelvis performed without intravenous and oral contrast using helical scanning technique. Reconstructed coronal and sagittal MPR images reviewed. All images stored on PACS. Automated exposure control was used as a dose optimization technique for this examination. COMPARISON: CT abdomen and pelvis dated 02/17/2021. REFERENCE: Per ACR white paper recommendations, unless otherwise specified no follow-up imaging is recommended for incidental renal and adrenal lesions per consensus recommendations based on imaging criteria. Further lab evaluation could be pursued based on clinical findings. FINDINGS: The sensitivity for detection of visceral lesions is diminished without the use of intravenous contrast. LOWER CHEST: There is mild atelectasis at the lingular region of the left lung and minimal atelectasis at the right lateral costophrenic angle. Visualized portions of the lungs are otherwise clear. Visualized portion of the heart is unremarkable.. LIVER: Normal size. No identified cystic or solid masses. GALLBLADDER: Surgically absent. BILE DUCTS: No intrahepatic or extrahepatic ductal dilatation. SPLEEN: Absent. PANCREAS: No identified cystic or solid masses. No significant calcifications. No adjacent inflammation or peripancreatic fluid collections. Pancreatic duct not dilated. ADRENALS: Normal. KIDNEYS/URINARY TRACT: No identified significant cystic or solid masses. No stones. No hydronephrosis or hydroureter. Urinary bladder is unremarkable. GI: Images are motion degraded. Appendix is not visualized. No focal inflammation or fluid collection is evident in the right lower quadrant. There is moderately prominent stool within the large bowel. No definite bowel wall thickening is evident. No dilated loops of small bowel. PERITONEUM: No ascites or free air. RETROPERITONEUM: No mass or adenopathy. REPRODUCTIVE: Grossly unremarkable. VASCULATURE: No abdominal aortic aneurysm. MUSCULOSKELETAL: No definite acute abnormality. OTHER: No other abnormality. IMPRESSION: 1. Motion degraded exam without definite acute intra-abdominal or intra pelvic abnormality. 2. Moderate retained stool. THIS IS AN ELECTRONICALLY VERIFIED FINAL REPORT 09/02/2023 4:53 PM - Electronically signed by Sekou Caba M.D., D.O. Sekou Caba M.D., D.O. MW: [id number] Report ID: [id number] Reading Location: [id number] Social History Type Status Start Date End Date Code Code Syst em Smoking History Unknown if ever smoked [id number] Sex Female Hospital Discharge Instructions Should you have any questions prior to discharge, please contact a member of your healthcare team. If you have left the hospital and have any questions, please contact your primary care physician. Reason For Referral No Data Found Plan of Treatment No Data Found Encounters Encounter Diagnosis Start Date Code Code Sys tem Unspecified abdominal pain 09/02/2023 S NOMED-CT Personal Care Team Section Performer Name Performer Role Active Date Inactive Da te Imaging Narrative Notes
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
--- OUTSIDE RECORDS SUMMARY | 2025-04-02 10:14 | XMS_ITS | Encounter Summary ---
Author Organization [employer] Address [address] [place] [address] Care Team Providers Care Administrative Resources Associate Name Role Phone Mike Desouza MD Primary Care Provider [phone] Encounter Details Date Type Department Care Team (Late st Contact Info) Description 10/14/2008 Outpatient Historical HIS MEDICAL/PEDS Er, Authorized P NO ADDRESS ON FILE Malcolm Martin MD [address] [place] [phone] Social History Tobacco Use Types Packs/Day Years Used Date Smoking Tobacco: Never Assessed Comments Unknown Sex and Gender Information Value Date Recorded Sex Assigned at Not on file Legal Sex Female 2:42 AM TURKEY BONER Gender Identity Not on file Sexual Orientation Not on file documented as of this encounter Plan of Treatment Not on file documented as of this encounter Procedures Procedure Name Priority Date/Time Associated Diagnosis Comments CBC WITH DIFFERENTIAL Routine 10/15/2008 6:45 AM TURKEY BONER URINALYSIS WITH REFLEX CULTURE Stat 10/15/2008 3:53 AM TURKEY BONER URINALYSIS W/REFLEX MICROSCOPIC Stat 10/15/2008 3:53 AM TURKEY BONER URINE CULTURE Stat 10/15/2008 3:53 AM TURKEY BONER PROTIME-INR Stat 10/15/2008 3:30 AM TURKEY BONER TYPE AND SCREEN Routine 10/15/2008 2:06 AM TURKEY BONER XR CHEST PA AND LATERAL 2 VW Stat 10/15/2008 12:58 AM TURKEY BONER CBC WITH DIFFERENTIAL Stat 10/15/2008 12:32 AM TURKEY BONER documented in this encounter Results * (ABNORMAL) CBC WITH DIFFERENTIAL (10/15/2008 6:45 AM TURKEY BONER) HEMATOCRIT 33.0(L) 35.5 - 44.0 % [facility] RDW-STDEV 42.9 37.1 - 48.7 fL [facility] RBC 3.54(L) 3.90 - 4.90 M/uL [facility] MCHC 32.4 31.5 - 35.5 % [facility] MCV 93.2 82.0 - 99.0 fL [facility] PLATELETS 220 140 - 350 K/uL [facility] HEMOGLOBIN 10.7(L) 11.8 - 14.8 g/dL [facility] RDW 12.6 11.5 - 14.5 % [facility] WBC 4.8 4.0 - 9.8 K/uL [facility] MPV 9.4 9.3 - 12.4 fL [facility] MCH 30.2 27.2 - 32.6 pg [facility] LYMPHOCYTES 44 16 - 45 % [facility] LYMPHOCYTE ABSOLUTE 2.11 0.70 - 4.50 K/uL [facility] BASOPHILS 0 0 - 2 % [facility] BASOPHILS ABSOLUTE 0.02 0.00 - 0.20 K/uL [facility] MONOCYTES 8 3 - 13 % [facility] MONOCYTE ABSOLUTE 0.36 0.10 - 1.30 K/uL [facility] NEUTROPHILS 41(L) 45 - 70 % [facility] NEUTROPHIL ABSOLUTE 1.98 1.90 - 7.00 K/uL [facility] EOSINOPHILS 7 0 - 7 % [facility] EOSINOPHIL ABSOLUTE 0.32 0.00 - 0.70 K/uL [facility] Blood specimen (specimen) 10/15/2008 6:45 AM TURKEY BONER 10/15/2008 6:53 AM TURKEY BONER Malcolm Martin MD HEMATOLOGY ORDERABLES Edit ed Performing Organization Address [facility] de Phone Number INTERFACE SYSTEM Refer to clinic/hospital department [facility] CLIA# [id number] [address] [place] [address] * URINE CULTURE (10/15/2008 3:53 AM TURKEY BONER) [facility] PRELIMINARY REPORT No growth [facility] FINAL REPORT No growth [facility] 10/15/2008 3:53 AM TURKEY BONER 10/15/2008 4:16 AM TURKEY BONER us Dustin Gallardo MD MICROBIOLOGY - GENERAL ORDER DAYANARA Final Result Performing Organization Address [facility] Phone Number INTERFACE SYSTEM Refer to clinic/hospital department [facility] CLIA# [id number] [address] [place] [address] * (ABNORMAL) URINALYSIS (10/15/2008 3:53 AM TURKEY BONER) Pathologist [facility] BLOOD UA 4+(A) Negative [facility] PROTEIN UA Trace(A) Negative [facility] LEUKOCYTE ESTERASE UA Negative Negative [facility] UROBILINOGEN UA <1 <1 mg/dL [facility] SPECIFIC GRAVITY UA 1.025 1.001 - 1.035 [facility] GLUCOSE UA Negative Negative [facility] COLOR UA Yellow [facility] NITRITE UA Negative Negative [facility] BILIRUBIN UA Negative Negative [facility] PH UA 6.0 5.0 - 8.0 [facility] KETONES UA Negative Negative [facility] CLARITY UA Slt. Cloudy(A) Clear [facility] EPITHELIAL CELLS, URINE 0-2 /HPF [facility] MUCOUS, URINE 4+ [facility] RBC UA Many(A) 0 - 2 /HPF [facility] BACTERIA UA None Seen None Seen /HPF [facility] WBC UA 0-5 0 - 5 /HPF [facility] 10/15/2008 3:53 AM TURKEY BONER 10/15/2008 3:58 AM TURKEY BONER us Dustin Gallardo MD URINE ORDERABLES Edited Performing Organization Address [facility] Phone Number INTERFACE SYSTEM Refer to clinic/hospital department [facility] CLIA# [id number] [address] [place] [address] * URINALYSIS WITH REFLEX CULTURE (10/15/2008 3:53 AM TURKEY BONER) Pathologist [facility] URINE CULTURE ORDER Culture ordered [facility] Comment: Criteria for a reflex culture include one or more of the following: Abnormal WBCs, RBCs or bacteria. Lack of qualifying criteria does not exclude the possibility of a urinary tract infection. Dilute urine, drug interference, etc. may decrease the sensitivity of the criteria analytes. Urine specimen (specimen) 10/15/2008 3:53 AM TURKEY BONER 10/15/2008 3:58 AM TURKEY BONER us Dustin Gallardo MD URINE ORDERABLES Final Resul t Performing Organization Address [facility] de Phone Number INTERFACE SYSTEM Refer to clinic/hospital department [facility] CLIA# [id number] [address] [place] [address] * PROTIME-INR (10/15/2008 3:30 AM TURKEY BONER) INR 1.0 0.9 - 1.1 [facility] Comment: INR Therapeutic Range: Adult: 2.0 - 3.0 for pulmonary embolism or prophylaxis against venous thrombosis or systemic embolization. 2.0 - 3.0 for patients with tissue heart valves. 2.5 - 3.5 for patients with mechanical heart valves or post [place]. Pediatric (12 years and under): 1.5 - 3.0 Although the target range in children is not well established, INR values of 1.5 - 3.0 are recommended for most patients. Higher values have been used in children with prosthetic cardiac valves and hereditary clotting disorders. (<3 days) therapeutic ranges have not been established. PROTIME 13.2 12.4 - 14.7 Seconds [facility] Blood specimen (specimen) 10/15/2008 3:30 AM TURKEY BONER 10/15/2008 3:49 AM TURKEY BONER us Dustin Gallardo MD HEMATOLOGY ORDERABLES Final Result Performing Organization Address [facility] Co de Phone Number INTERFACE SYSTEM Refer to clinic/hospital department [facility] CLIA# [id number] [address] [place] [address] * TYPE AND SCREEN (10/15/2008 2:06 AM TURKEY BONER) ANTIBODY SCREEN Negative [facility] HISTORY CHECK History Checked [facility] SPECIMEN LIFE 3 days from drawdate [facility] ABO/RH TYPE O Positive [facility] Blood specimen (specimen) 10/15/2008 2:06 AM TURKEY BONER us Dustin Gallardo MD BLOOD BANK ORDERABLES Edited Performing Organization Address City/[facility] Co de Phone Number INTERFACE SYSTEM Refer to clinic/hospital department [facility] CLIA# [id number] [address] [place] [address] * XR CHEST PA AND LATERAL (10/15/2008 12:58 AM TURKEY BONER) Anatomical Region Laterality Modality Chest Other 10/15/2008 12:5 8 AM TURKEY BONER Narrative 10/15/2008 8:00 AM TURKEY BONER [place] [id number] Admit Date: 10/15/2008 VANESSA RAY Sex: F Admit Prov: MALCOLM MARTIN Date: 1975 Primary Care Prov: PCP , NONE CMRN: [id number] [address] [id number] IMAGING SERVICES Ordering Prov: N/A Accession Number: [id number] Interpretation CHEST 2 VIEWS 10/15/08 History: Abdominal pain. hematemesis Findings: The cardiac size is normal. No free subdiaphragmatic air is identified. No pneumothorax, acute congestive changes, focal pneumonic infiltrates, or pleural effusion is identified. No definite acute process is noted. Summary: No acute process is identified. . Dictated by: BRENNEN TRINIDAD 10/15/2008 06:47 Electronically signed by: BRENNEN TRINIDAD 10/15/2008 07:58 Transcribed: 10/15/2008 07:14 Procedure Note Brennen Trinidad DO - 10/15/[address] [address] Admit Date: 10/15/2008 VANESSA RAY Sex: F Admit Prov: MALCOLM MARTIN Date: 1975 Primary Care Prov: PCP , NONE CMRN: [id number] [address] [id number] IMAGING SERVICES Ordering Prov: N/A Interpretation CHEST 2 VIEWS 10/15/08 History: Abdominal pain. hematemesis Findings: The cardiac size is normal. No free subdiaphragmatic airis identified. No pneumothorax, acute congestive changes, focalpneumonic infiltrates, or pleural effusion is identified. No definite acuteprocess is noted. Summary: No acute process is identified. . Dictated by: BRENNEN TRINIDAD 10/15/2008 06:47 Electronically signed by: BRENNEN TRINIDAD 10/15/2008 07:58 Transcribed: 10/15/2008 07:14 us Dustin Gallardo MD DIAGNOSTIC IMAGING ORDERABLE S Final Result * (ABNORMAL) CBC WITH DIFFERENTIAL (10/15/2008 12:32 AM TURKEY BONER) RBC 3.81(L) 3.90 - 4.90 M/uL [facility] MCHC 33.1 31.5 - 35.5 % [facility] MCV 91.1 82.0 - 99.0 fL [facility] PLATELETS 261 140 - 350 K/uL [facility] HEMOGLOBIN 11.5(L) 11.8 - 14.8 g/dL [facility] RDW 12.5 11.5 - 14.5 % [facility] WBC 5.3 4.0 - 9.8 K/uL [facility] MPV 9.6 9.3 - 12.4 fL [facility] MCH 30.2 27.2 - 32.6 pg [facility] HEMATOCRIT 34.7(L) 35.5 - 44.0 % [facility] RDW-STDEV 41.2 37.1 - 48.7 fL [facility] LYMPHOCYTES 40 16 - 45 % [facility] LYMPHOCYTE ABSOLUTE 2.12 0.70 - 4.50 K/uL [facility] BASOPHILS 1 0 - 2 % [facility] BASOPHILS ABSOLUTE 0.05 0.00 - 0.20 K/uL [facility] MONOCYTES 9 3 - 13 % [facility] MONOCYTE ABSOLUTE 0.48 0.10 - 1.30 K/uL [facility] NEUTROPHILS 43(L) 45 - 70 % [facility] NEUTROPHIL ABSOLUTE 2.29 1.90 - 7.00 K/uL [facility] EOSINOPHILS 6 0 - 7 % [facility] EOSINOPHIL ABSOLUTE 0.34 0.00 - 0.70 K/uL [facility] Blood specimen (specimen) 10/15/2008 12:32 AM TURKEY BONER 10/15/2008 12:52 AM TURKEY BONER us Dustin Gallardo MD HEMATOLOGY ORDERABLES Edited INTERFACE SYSTEM Refer to clinic/hospital department [facility] CLIA# [id number] [address] [place] [address] documented in this encounter Visit Diagnoses Not on filedocumented in this encounter Care Teams Administrative Resources Associate Relationship Specialty Start Date End Date Mike Desouza MD [address] [place] [address] PCP - General 11/02/23 documented as of this encounter
--- OUTSIDE RECORDS SUMMARY | 2025-04-02 10:14 | XMS_ITS | Encounter Summary ---
Author Organization [employer] Address [address] [place] [address] Care Team Providers Care Aircraft Manager Name Role Phone Mike Desouza MD Primary Care Provider [phone] Encounter Details Date Type Department Care Team (Late st Contact Info) Description 10/10/2008 Outpatient Historical [facility] EM[facility]Y [facility] WASH Er, Authorized P NO ADDRESS ON FILE Dustin Gallardo MD [address] [place] [address] [place] [address] Abdominal Pain, Other Specified Site; Tobacco Use Disorder Social History Tobacco Use Types Packs/Day Years Used Date Smoking Tobacco: Never Assessed Comments Unknown Sex and Gender Information Value Date Recorded Sex Assigned at Not on file Legal Sex Female 2:42 AM SHIPPING CLERK CRATING Gender Identity Not on file Sexual Orientation Not on file documented as of this encounter Plan of Treatment Not on file documented as of this encounter Procedures Procedure Name Priority Date/Time Associated Diagnosis Comments CT ABDOMEN PELVIS WO CONTRAST Stat 10/10/2008 12:42 PM SHIPPING CLERK CRATING CBC WITH DIFFERENTIAL Stat 10/10/2008 10:50 AM SHIPPING CLERK CRATING BASIC METABOLIC PANEL Stat 10/10/2008 10:50 AM SHIPPING CLERK CRATING URINALYSIS WITH REFLEX CULTURE Stat 10/10/2008 10:45 AM SHIPPING CLERK CRATING URINALYSIS W/REFLEX MICROSCOPIC Stat 10/10/2008 10:45 AM SHIPPING CLERK CRATING URINE CULTURE Stat 10/10/2008 10:45 AM SHIPPING CLERK CRATING documented in this encounter Results * CT ABDOMEN PELVIS WO CONTRAST (10/10/2008 12:42 PM SHIPPING CLERK CRATING) Anatomical Region Laterality Modality Abdomen Other 10/10/2008 12:4 2 PM SHIPPING CLERK CRATING Narrative 10/10/2008 1:06 PM SHIPPING CLERK CRATING [address] [address] Admit Date: 10/10/2008 VANESSA RAY Sex: F Admit Prov: ER, AUTHORIZED P Date: 1975 Primary Care Prov: PCP , NONE CMRN: [id number] Room: ER-B SSN: [id number] IMAGING SERVICES Ordering Prov: N/A Accession Number: [id number] Interpretation CT ABDOMEN AND PELVIS WITHOUT CONTRAST, 10/10/08 History: Abdominal pain Findings: CT is performed without oral or IV contrast, and this limits evaluation of the examination in multiple areas. Presumably the exam is performed for stone protocol. No acute infiltrates or effusions are noted. Aorta is normal in size. No pathologic periaortic lymphadenopathy is seen. There are changes consistent with previous cholecystectomy. Noncontrast images of the liver, spleen, adrenals and pancreas show no definite abnormality. There is no hydronephrosis or calcification seen on the right or the left. The ureters are small and partially averaged with multiple other structures. Where visualized no stones are seen in the ureters. No definite stones are identified in the ureters. It is unknown if the patient retains her appendix. Tubular structure seen in the pelvis thought to represent at least a portion of the appendix is visualized, but this is averaged with adjacent bowel. It is mildly prominent in size, but there is no associated inflammation and the exact size is difficult to determine. The small prominence may in part be related to the fact that it is volume averaged with the adjacent bowel. The wall of the appendix is without definite inflammation. There is no inflammation in the adjacent fat. The uterus is seen. There is no mass or cyst seen in the adnexal structure. The left ovary is not definitely seen. The right ovary is visualized. There is no evidence to suggest bowel obstruction. No inflammatory changes are seen in the bowel. Summary: There is no definite acute process seen. . Dictated by: BRENNEN TRINIDAD 10/10/2008 12:44 Electronically signed by: BRENNEN TRINIDAD 10/10/2008 13:05 Transcribed: 10/10/2008 13:03 LE Procedure Note Brennen Trinidad DO - 10/10/[address] [address] Admit Date: 10/10/2008 VANESSA RAY Sex: F Admit Prov: ER, AUTHORIZED P Date: 1975 Primary Care Prov: PCP , NONE CMRN: [id number] Room: ER-B SSN: [id number] IMAGING SERVICES Ordering Prov: N/A Interpretation CT ABDOMEN AND PELVIS WITHOUT CONTRAST, 10/10/08 History: Abdominal pain Findings: CT is performed without oral or IV contrast, and thislimits evaluation of the examination in multiple areas. Presumably the examis performed for stone protocol. No acute infiltrates or effusions arenoted. Aorta is normal in size. No pathologic periaortic lymphadenopathy isseen. There are changes consistent with previous cholecystectomy.Noncontrast images of the liver, spleen, adrenals and pancreas show no definite abnormality. There is no hydronephrosis or calcification seen on theright or the left. The ureters are small and partially averaged withmultiple other structures. Where visualized no stones are seen in the ureters.No definite stones are identified in the ureters. It is unknown if thepatient retains her appendix. Tubular structure seen in the pelvis thoughtto represent at least a portion of the appendix is visualized, but thisis averaged with adjacent bowel. It is mildly prominent in size, butthere is no associated inflammation and the exact size is difficult todetermine. The small prominence may in part be related to the fact that it isvolume averaged with the adjacent bowel. The wall of the appendix iswithout definite inflammation. There is no inflammation in the adjacent fat.The uterus is seen. There is no mass or cyst seen in the adnexalstructure. The left ovary is not definitely seen. The right ovary is visualized.There is no evidence to suggest bowel obstruction. No inflammatory changes areseen in the bowel. Summary: There is no definite acute process seen. . Dictated by: BRENNEN TRINIDAD 10/10/2008 12:44 Electronically signed by: BRENNEN TRINIDAD 10/10/2008 13:05 Transcribed: 10/10/2008 13:03 LE Dustin Gallardo MD CT ORDERABLES Final Result * CBC WITH DIFFERENTIAL (10/10/2008 10:50 AM SHIPPING CLERK CRATING) RDW-STDEV 41.4 37.1 - 48.7 fL [facility] RBC 4.57 3.90 - 4.90 M/uL [facility] MCHC 33.7 31.5 - 35.5 % [facility] PLATELETS 272 140 - 350 K/uL [facility] MCV 91.0 82.0 - 99.0 fL [facility] HEMOGLOBIN 14.0 11.8 - 14.8 g/dL [facility] RDW 12.5 11.5 - 14.5 % [facility] WBC 4.1 4.0 - 9.8 K/uL [facility] MCH 30.6 27.2 - 32.6 pg [facility] MPV 9.7 9.3 - 12.4 fL [facility] HEMATOCRIT 41.6 35.5 - 44.0 % [facility] BASOPHILS 1 0 - 2 % [facility] BASOPHILS ABSOLUTE 0.03 0.00 - 0.20 K/uL [facility] MONOCYTES 13 3 - 13 % [facility] MONOCYTE ABSOLUTE 0.52 0.10 - 1.30 K/uL [facility] NEUTROPHILS 55 45 - 70 % [facility] NEUTROPHIL ABSOLUTE 2.24 1.90 - 7.00 K/uL [facility] EOSINOPHILS 6 0 - 7 % [facility] EOSINOPHIL ABSOLUTE 0.23 0.00 - 0.70 K/uL [facility] LYMPHOCYTES 27 16 - 45 % [facility] LYMPHOCYTE ABSOLUTE 1.09 0.70 - 4.50 K/uL [facility] Blood specimen (specimen) 10/10/2008 10:50 AM SHIPPING CLERK CRATING 10/10/2008 11:16 AM SHIPPING CLERK CRATING us Dustin Gallardo MD HEMATOLOGY ORDERABLES Edited INTERFACE SYSTEM Refer to clinic/hospital department [facility] CLIA# [id number] [address] [place] [address] * BASIC METABOLIC PANEL (10/10/2008 10:50 AM SHIPPING CLERK CRATING) BUN 19 6 - 20 mg/dL [facility] CHLORIDE 102 96 - 108 mmol/L [facility] SODIUM 136 135 - 145 mmol/L [facility] CREATININE 0.58 0.51 - 0.95 mg/dL [facility] CO2 25 22 - 30 mmol/L [facility] CALCIUM 9.8 8.6 - 10.2 mg/dL [facility] POTASSIUM 3.8 3.5 - 4.9 mmol/L [facility] GLUCOSE 96 65 - 99 mg/dL [facility] GFR, >60 >=60 mL/min/1.7 sq meter [facility] GFR >60 >=60 mL/min/1.7 sq meter [facility] Comment: Modification of Diet in Renal Disease (MDRD) study formula. Estimated GFR rate interpretative information for both Americans and non- Americans is available on the [facility] Intranet at: [email or web address] Select: Lab Policies and Procedures Select: Reference Ranges - GFR Blood specimen (specimen) 10/10/2008 10:50 AM SHIPPING CLERK CRATING 10/10/2008 11:16 AM SHIPPING CLERK CRATING us Dustin Gallardo MD CHEMISTRY ORDERABLES Edited Performing Organization Address [facility] de Phone Number INTERFACE SYSTEM Refer to clinic/hospital department [facility] CLIA# [id number] [address] [place] [address] * URINE CULTURE (10/10/2008 10:45 AM SHIPPING CLERK CRATING) PRELIMINARY REPORT Pending [facility] FINAL REPORT 10-50,000 colonies/mL Polymicrobial growth consistent with normal urethral anay [facility] 10/10/2008 10:4 5 AM SHIPPING CLERK CRATING 10/10/2008 11:51 AM SHIPPING CLERK CRATING us Dustin Gallardo MD MICROBIOLOGY - GENERAL ORDER DAYANARA Final Result Performing Organization Address [facility] Phone Number INTERFACE SYSTEM Refer to clinic/hospital department [facility] CLIA# [id number] [address] [place] [address] * (ABNORMAL) URINALYSIS (10/10/2008 10:45 AM SHIPPING CLERK CRATING) CLARITY UA Slt. Cloudy(A) Clear [facility] BLOOD UA 4+(A) Negative [facility] PROTEIN UA Negative Negative [facility] LEUKOCYTE ESTERASE UA Negative Negative [facility] UROBILINOGEN UA <1 <1 mg/dL [facility] SPECIFIC GRAVITY UA 1.015 1.001 - 1.035 [facility] GLUCOSE UA Negative Negative [facility] COLOR UA Yellow [facility] NITRITE UA Negative Negative [facility] BILIRUBIN UA Negative Negative [facility] PH UA 7.0 5.0 - 8.0 [facility] KETONES UA Negative Negative [facility] EPITHELIAL CELLS, URINE 5-10 /HPF [facility] RBC UA Many(A) 0 - 2 /HPF [facility] BACTERIA UA Trace None Seen /HPF [facility] WBC UA 0-5 0 - 5 /HPF [facility] 10/10/2008 10:4 5 AM SHIPPING CLERK CRATING 10/10/2008 11:16 AM SHIPPING CLERK CRATING Dustin Gallardo MD URINE ORDERABLES Edited Performing Organization Address [facility] Phone Number INTERFACE SYSTEM Refer to clinic/hospital department [facility] CLIA# [id number] [address] [place] [address] * URINALYSIS WITH REFLEX CULTURE (10/10/2008 10:45 AM SHIPPING CLERK CRATING) URINE CULTURE ORDER Culture ordered [facility] Comment: Criteria for a reflex culture include one or more of the following: Abnormal WBCs, RBCs or bacteria. Lack of qualifying criteria does not exclude the possibility of a urinary tract infection. Dilute urine, drug interference, etc. may decrease the sensitivity of the criteria analytes. Urine specimen (specimen) 10/10/2008 10:45 AM SHIPPING CLERK CRATING 10/10/2008 11:16 AM SHIPPING CLERK CRATING Dustin Gallardo MD URINE ORDERABLES Final Resul t Performing Organization Address [facility] Phone Number INTERFACE SYSTEM Refer to clinic/hospital department [facility] CLIA# [id number] [address] [place] [address] documented in this encounter Visit Diagnoses Diagnosis Abdominal pain, other specified site Tobacco use disorder documented in this encounter Care Teams Aircraft Manager Relationship Specialty Start Date End Date Mike Desouza MD [address] [place] [address] PCP - General 11/02/23 documented as of this encounter
--- OUTSIDE RECORDS SUMMARY | 2025-04-02 10:14 | XMS_ITS | Referral Summary ---
Author Organization [facility] Address [address] [place] [address] Care Team Providers Care Therapeutic Consultant Name Role Phone Akbar Palacios MD Primary [...] 02/27/2008 Overview (06/28/2021): Contusion 02/17/2008 Overview (06/28/2021): Social History Tobacco Use Types Packs/Day Years [...] on file Legal Sex Female 1:57 PM SHORT FILLER BUNCH MACHINE OPERATOR Gender Identity Not on file Sexual Orientation Not on file Last Filed Vital Signs [...] 06/17/2024 1:53 AM CDT Plan of Treatment Not on file Procedures Procedure Name Priority Date/Time Associated Diagnosis Comments DIAGNOSTIC MAMMOGRAM BILATERAL W CASPER Schedule Routine, Read Routine (OP Routine) 11/25/2022 10:32 AM SHORT FILLER BUNCH MACHINE OPERATOR Mass of right breast from Last 3 Months or Most Recently Relevant to Health Maintenance Results * Diagnostic Mammogram Bilateral W [place] (11/25/2022 10:32 AM SHORT FILLER BUNCH MACHINE OPERATOR) Anatomical Region Laterality Modality Breast Bilateral Mammography 11/25/2022 11:0 1 AM SHORT FILLER BUNCH MACHINE OPERATOR Impressions 11/25/2022 11:29 AM SHORT FILLER BUNCH MACHINE OPERATOR 1. No mammographic or sonographic correlate to [...] Annette Yost M.D. Narrative 11/25/2022 11:29 AM SHORT FILLER BUNCH MACHINE OPERATOR EXAMINATION: BILATERAL DIGITAL DIAGNOSTIC MAMMOGRAM INCLUDING CAD [...] with scattered fibroglandular densities. Procedure Note Annette Yost MD - 11/25/2022 EXAMINATION: BILATERAL DIGITAL DIAGNOSTIC [...] Most Recently Relevant to Health Maintenance Insurance [facility] Care Teams Therapeutic Consultant Relationship Specialty Start Date End Date Akbar Palacios MD PCP - General Family Medicine 11/18/22
--- OUTSIDE RECORDS SUMMARY | 2025-04-02 10:14 | XMS_ITS | Encounter Summary ---
Author Organization [employer] Address [address] [place] [address] Care Team Providers Care Sales Training Representative Name Role Phone Mike Desouza MD Primary Care Provider [phone] Encounter Details Date Type Department Care Team (Latest Contact Info) Description 02/03/1999 Outpatient Historical [facility] OBSERVATION BED Guillaume Godinez MD NO ADDRESS ON FILE Threatened premature labor, antepartum(644.03) (Primary Dx) Social History Tobacco Use Types Packs/Day Years Used Date Smoking Tobacco: Never Assessed Comments Unknown Sex and Gender Information Value Date Recorded Sex Assigned at Not on file Legal Sex Female 2:42 AM ECONOMIC FORECASTER Gender Identity Not on file Sexual Orientation Not on file documented as of this encounter Plan of Treatment Not on file documented as of this encounter Visit Diagnoses Diagnosis Threatened premature labor, antepartum(644.03)- Primary Threatened premature labor, antepartum documented in this encounter Care Teams Sales Training Representative Relationship Specialty Start Date End Date Mike Desouza MD [facility] [address] [place] [address] PCP - General 11/02/23 documented as of this encounter
--- OUTSIDE RECORDS SUMMARY | 2025-04-02 10:14 | XMS_ITS | Encounter Summary ---
Author Organization [employer] Address 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
--- OUTSIDE RECORDS SUMMARY | 2025-04-02 10:14 | XMS_ITS | Clinical Summary ---
Author Organization [facility] Address [address] [place] [address] Phone Care Team Providers Care Physical Education Instructor Name Role Phone Siomara Desouza MD Primary Care Provider [phone] Allergies Active Allergy Reactions Criticality Noted Date Comments Aspirin Unknown 08/17/2020 Nsaids Unknown 08/17/2020 Metoclopramide Unknown 08/17/2020 Ketorolac Tromethamine Anaphylaxis 08/17/2020 Ondansetron Unknown 08/17/2020 Medications albuterol (PROVENTIL, VENTOLIN) (5 MG/ML) 0.5% Nebulizer Soln take 2.5 mg by inhalation. Active ALPRAZolam (XANAX) 1 MG Tablet Take 1 Tablet by mouth 3 times daily as needed. 11/19/2016 Active Active Problems No known active problems Social History Tobacco Use Types Packs/Day Years Used Date Smoking Tobacco: Every Day Cigarettes Smokeless Tobacco: Never Alcohol Use Standard Drinks/Week Comments Not Currently 0 (1 standard drink = 0.6 oz pur e alcohol) Comments No Sex and Gender Information Value Date Recorded Sex Assigned at Female 07/02/2023 1:35 AM CDT Legal Sex Female 12:26 AM CDT Gender Identity Female 07/02/2023 1:35 AM CDT Sexual Orientation Not on file Last Filed Vital Signs Vital Sign Reading Time Taken Comments Blood Pressure 118/90 07/02/2023 1:18 AM CDT Pulse 64 07/02/2023 1:18 AM CDT Temperature 36.6 C (97.8 F) 07/02/2023 1:18 AM CDT Respiratory Rate 22 07/02/2023 1:18 AM CDT Oxygen Saturation 100% 07/02/2023 1:18 AM CDT Inhaled Oxygen Concentration - - Weight 54 kg (119 lb) 07/02/2023 1:18 AM CDT Height 160 cm (5' 3) 07/02/2023 1:18 AM CDT Body Mass Index 21.08 07/02/2023 1:18 AM CDT Plan of Treatment Health Maintenance Due Date Last Done Comments Hepatitis C Virus (HCV) Screening 1975 Mammogram 1975 Hepatitis B Immunization (1 of 3 - 19+ 3-dose series) 1996 Discussion re Starting/Frequency of Mammograms 2017 Pneumococcal Immunization Combined (2 of 2 - PPSV23) 10/18/2021 08/23/2021 Cologuard 2022 Colonoscopy 2022 Colorectal Cancer Screening 2022 Immunochemical Fecal Occult Blood 2022 SARS-COV-2 Immunization ( - season) 2024 07/10/2021, 06/12/2021 Influenza Immunization (Seas on Ended) 2025 08/23/2021 Respiratory Syncytial Virus (RSV) Immunization (Adult) (1 - 1-dose 75+ series) 2052 TdaP Immunization Completed 08/04/2008 DTaP/Tdap/Td Immunization Discontinued 2009, 12/14/2009, 08/04/2008 Meningococcal Immunization (ACWY) Aged Out 08/23/2021 No longer eligible based on patient's age to complete this topic Human Papillomavirus (HPV) Immunization Aged Out No longer eligible based on patient's age to complete this topic Rotavirus Immunization Aged Out No lo nger eligible based on patient's age to complete this topic Insurance [place]ICAID [place] Care Teams Physical Education Instructor Relationship Specialty Start Date End Date Siomara Desouza MD [address] [facility] [address] [place] [address] PCP - General Family Medicine 07/02/23
--- OUTSIDE RECORDS SUMMARY | 2025-04-02 10:14 | XMS_ITS | Encounter Summary ---
Author Organization [employer] Address 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
--- OUTSIDE RECORDS SUMMARY | 2025-04-02 10:14 | XMS_ITS | Encounter Summary ---
Author Organization [employer] Address 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
--- OUTSIDE RECORDS SUMMARY | 2025-04-02 10:14 | XMS_ITS | Encounter Summary ---
Author Organization [employer] [facility] Address [address] [place] [address] Care Team Providers Care Wind Turbine Electrical Engineer Name Role Phone Mike Desouza MD Primary Care Provider [phone] Encounter Details Date Type Department Care Team (Late st Contact Info) Description 04/28/2009 Outpatient Historical [facility] Er, Authorized P NO ADDRESS ON FILE Audra Cadet MD NO ADDRESS ON FILE Abdominal Pain, Right Upper Quadrant; Other Acute Pain; Nausea with Vomiting; Diarrhea; Hematuria, Unspecified; Tobacco Use Disorder Social History Tobacco Use Types Packs/Day Years Used Date Smoking Tobacco: Never Assessed Comments Unknown Sex and Gender Information Value Date Recorded Sex Assigned at Not on file 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 Gender Identity Not on file Sexual Orientation Not on file documented as of this encounter Plan of Treatment Not on file documented as of this encounter Procedures Procedure Name Priority Date/Time Associated Diagnosis Comments CT ABDOMEN PELVIS W CONTRAST Routine 04/28/2009 4:50 PM CDT URINALYSIS W/REFLEX MICROSCOPIC Stat 04/28/2009 3:55 PM CDT CBC WITH DIFFERENTIAL Stat 04/28/2009 3:20 PM CDT C-REACTIVE PROTEIN Stat 04/28/2009 3: 20 PM CDT LIPASE Stat 04/28/2009 3:20 PM CDT COMPREHENSIVE METABOLIC PANEL Stat 04/28/2009 3:20 PM CDT documented in this encounter Results * CT ABDOMEN PELVIS W CONTRAST (04/28/2009 4:50 PM CDT) Anatomical Region Laterality Modality Abdomen Other 04/28/2009 4:50 PM CDT Narrative 04/29/2009 10:08 PM CDT [place] [address] [place], [place] [address] Admit Date: 04/28/2009 DENIA RAY Sex: F Admit Prov: AUDRA CADET Date: 1975 Primary Care Prov: PCP, NONE CMRN: [id number] [facility] [id number] IMAGING SERVICES Ordering Prov: N/A Accession Number: [id number] Interpretation Computed tomography examination of the abdomen and pelvis with intravenous contrast administration on Apr 28, 2009 4:57:25 PM . 29 hours after the examination was performed, it was made available for interpretation. History: Right lower quadrant pain Enhanced axial images of the abdomen and pelvis were obtained following intravenous contrast administration. The liver and spleen enhance homogeneously. The kidneys demonstrate symmetric uptake and concentration of contrast. The adrenal glands, and pancreas appear normal. The gallbladder has been surgically resected. The visualized loops of bowel appear grossly normal. The appendix is not visualized, however no evidence of right lower quadrant inflammation is appreciated. No free intraperitoneal air or fluid are present. The bladder is distended with urine. The visualized lung bases are clear. Impression: Unremarkable examination with no convincing evidence of any acute intra- abdominal inflammatory changes. Postoperative changes. . Dictated by: BRIANA GALLO 04/29/2009 21:51 Electronically signed by: BRIANA GALLO 04/29/2009 22:06 Procedure Note Briana Gallo MD - 04/29/2009 [place] [address] [place], [place] [address] Admit Date: 04/28/2009 DENIA RAY Sex: F Admit Prov: AUDRA CADET Date: 1975 Primary Care Prov: PCP, NONE CMRN: [id number] Room: ER-A SSN: [id number] IMAGING SERVICES Ordering Prov: N/A Interpretation Computed tomography examination of the abdomen and pelvis withintravenous contrast administration on Apr 28, 2009 4:57:25 PM . 29 hours after the examination was performed, it was made availablefor interpretation. History: Right lower quadrant pain Enhanced axial images of the abdomen and pelvis were obtainedfollowing intravenous contrast administration. The liver and spleen enhance homogeneously. The kidneys demonstrate symmetric uptake and concentration ofcontrast. The adrenal glands, and pancreas appear normal. The gallbladder has been surgically resected. The visualized loops of bowel appear grossly normal. The appendix is not visualized, however no evidence of right lowerquadrant inflammation is appreciated. No free intraperitoneal air or fluid are present. The bladder is distended with urine. The visualized lung bases are clear. Impression: Unremarkable examination with no convincing evidence of any acuteintra- abdominal inflammatory changes. Postoperative changes. . Dictated by: BRIANA GALLO 04/29/2009 21:51 Electronically signed by: BRIANA GALLO 04/29/2009 22:06 us Authorized P Er CT ORDERABLES Final Result * (ABNORMAL) URINALYSIS (04/28/2009 3:55 PM CDT) CLARITY UA Slt. Cloudy(A) Clear [facility] BILIRUBIN UA Negative Negative [facility] PROTEIN UA Negative Negative [facility] LEUKOCYTE ESTERASE UA Negative Negative [facility] RBC UA >100(H) 0 - 4 /HPF [facility] SPECIFIC GRAVITY UA 1.014 1.001 - 1.035 [facility] GLUCOSE UA Negative Negative [facility] BLOOD UA 3+(A) Negative [facility] COLOR UA Yellow [facility] NITRITE UA Negative Negative [facility] EPITHELIAL CELLS, URINE 2-5 /HPF [facility] UROBILINOGEN UA <1 <=1 mg/dL [facility] PH UA 5.5 5.0 - 8.0 [facility] WBC UA 4 0 - 5 /HPF [facility] KETONES UA Negative Negative [facility] 04/28/2009 3:55 PM CDT 04/28/2009 4:23 PM CDT us Authorized P Er URINE ORDERABLES Final Result Performing Organization Address [facility] Phone Number INTERFACE SYSTEM Refer to clinic/hospital department [facility] CLIA# [id number] [address] [place] [address] * (ABNORMAL) LIPASE (04/28/2009 3:20 PM CDT) LIPASE 12(L) 13 - 60 U/L [facility] 04/28/2009 3:20 PM CDT 04/28/2009 4:37 PM CDT us Authorized P Er CHEMISTRY ORDERABLES Final Resul t Performing Organization Address [facility] Phone Number INTERFACE SYSTEM Refer to clinic/hospital department [facility] CLIA# [id number] [address] [place] [address] * C-REACTIVE PROTEIN (04/28/2009 3:20 PM CDT) CRP 0.3 0.0 - 0.8 mg/dL [facility] 04/28/2009 3:20 PM CDT 04/28/2009 4:37 PM CDT us Authorized P Er CHEMISTRY ORDERABLES Final Resul t Performing Organization Address City/[facility] de Phone Number INTERFACE SYSTEM Refer to clinic/hospital department [facility] CLIA# [id number] [address] [facility] [place], [place] [address] * (ABNORMAL) CBC WITH DIFFERENTIAL (04/28/2009 3:20 PM CDT) WBC 4.1 4.0 - 9.8 K/uL [facility] MCH 29.4 27.2 - 32.6 pg [facility] MPV 9.5 9.3 - 12.4 fL [facility] HEMATOCRIT 34.6(L) 35.5 - 44.0 % [facility] RDW-STDEV 41.4 37.1 - 48.7 fL [facility] RBC 3.84(L) 3.90 - 4.90 M/uL [facility] MCHC 32.7 31.5 - 35.5 % [facility] MCV 90.1 82.0 - 99.0 fL [facility] PLATELETS 242 140 - 350 K/uL [facility] HEMOGLOBIN 11.3(L) 11.8 - 14.8 g/dL [facility] RDW 12.8 11.5 - 14.5 % [facility] BASOPHILS 1 0 - 2 % [facility] BASOPHILS ABSOLUTE 0.02 0.00 - 0.20 K/uL [facility] MONOCYTES 7 3 - 13 % [facility] MONOCYTE ABSOLUTE 0.29 0.10 - 1.30 K/uL [facility] NEUTROPHILS 59 45 - 70 % [facility] NEUTROPHIL ABSOLUTE 2.44 1.90 - 7.00 K/uL [facility] EOSINOPHILS 5 0 - 7 % [facility] EOSINOPHIL ABSOLUTE 0.22 0.00 - 0.70 K/uL [facility] LYMPHOCYTES 28 16 - 45 % [facility] LYMPHOCYTE ABSOLUTE 1.15 0.70 - 4.50 K/uL [facility] 04/28/2009 3:20 PM CDT 04/28/2009 3:31 PM CDT us Authorized P Er HEMATOLOGY ORDERABLES Edited INTERFACE SYSTEM Refer to clinic/hospital department [facility] CLIA# [id number] [address] [place] [address] * COMPREHENSIVE METABOLIC PANEL (04/28/2009 3:20 PM CDT) SODIUM 136 135 - 145 mmol/L [facility] ALT 14 0 - 31 U/L [facility] ALKALINE PHOSPHATASE 69 35 - 104 U/L [facility] BILIRUBIN TOTAL 0.3 0.2 - 1.0 mg/dL [facility] CO2 24 22 - 30 mmol/L [facility] CREATININE 0.58 0.51 - 0.95 mg/dL [facility] TOTAL PROTEIN 6.6 6.3 - 8.6 g/dL [facility] POTASSIUM 3.6 3.5 - 4.9 mmol/L [facility] AST 18 12 - 32 U/L [facility] BUN 6 6 - 20 mg/dL [facility] CALCIUM 9.1 8.6 - 10.2 mg/dL [facility] CHLORIDE 104 96 - 108 mmol/L [facility] GLUCOSE 89 65 - 99 mg/dL [facility] ALBUMIN 4.0 3.4 - 4.8 g/dL [facility] GFR, >60 >=60 mL/min/1.7 sq meter [facility] GFR >60 >=60 mL/min/1.7 sq meter [facility] Comment: Modification of Diet in Renal Disease (MDRD) study formula. Estimated GFR rate interpretative information for both Americans and non- Americans is available on the [facility] Intranet at: [email or web address] Select: Lab Policies and Procedures Select: Reference Ranges - GFR 04/28/2009 3:20 PM CDT 04/28/2009 3:31 PM CDT us Authorized P Er CHEMISTRY ORDERABLES Edited INTERFACE SYSTEM Refer to clinic/hospital department [facility] CLIA# [id number] [address] [place] [address] documented in this encounter Visit Diagnoses Diagnosis Abdominal pain, right upper quadrant Other acute pain Nausea with vomiting Diarrhea Hematuria, unspecified Tobacco use disorder documented in this encounter Care Teams Wind Turbine Electrical Engineer Relationship Specialty Start Date End Date Mike Desouza MD [address] [facility] [place] [id number] PCP - General 11/02/23 documented as of this encounter
--- OUTSIDE RECORDS SUMMARY | 2025-04-02 10:14 | XMS_ITS | Encounter Summary ---
Author Organization [employer] Address [address] [place] [address] Care Team Providers Care Calker Name Role Phone Mike Desouza MD Primary Care Provider [phone] Encounter Details Date Type Department Care Team (Late st Contact Info) Description 10/13/2008 Outpatient Historical [facility] Er, Authorized P NO ADDRESS ON FILE Ervin Alvarenga MD [address] [place] [id number] Abdominal Pain, Other Specified Site; Hematuria, Unspecified Social History Tobacco Use Types Packs/Day Years Used Date Smoking Tobacco: Never Assessed Comments Unknown Sex and Gender Information Value Date Recorded Sex Assigned at Not on file Legal Sex Female 2:42 AM RECEIVING CHECKER Gender Identity Not on file Sexual Orientation Not on file documented as of this encounter Plan of Treatment Not on file documented as of this encounter Procedures Procedure Name Priority Date/Time Associated Diagnosis Comments CT ABDOMEN PELVIS WO CONTRAST Stat 10/13/2008 8:20 PM RECEIVING CHECKER CBC WITH DIFFERENTIAL Stat 10/13/2008 7:00 PM RECEIVING CHECKER LIPASE Stat 10/13/2008 7:00 PM RECEIVING CHECKER HEPATIC FUNCTION PANEL Stat 10/13/2008 7:00 PM RECEIVING CHECKER BASIC METABOLIC PANEL Stat 10/13/2008 7:00 PM RECEIVING CHECKER URINALYSIS WITH REFLEX CULTURE Stat 10/13/2008 6:40 PM RECEIVING CHECKER URINALYSIS W/REFLEX MICROSCOPIC Stat 10/13/2008 6:40 PM RECEIVING CHECKER URINE CULTURE Stat 10/13/2008 6:40 PM RECEIVING CHECKER documented in this encounter Results * CT ABDOMEN PELVIS WO CONTRAST (10/13/2008 8:20 PM RECEIVING CHECKER) Anatomical Region Laterality Modality Abdomen Other 10/13/2008 8:20 PM RECEIVING CHECKER Narrative 10/13/2008 8:56 PM RECEIVING CHECKER [address] [address] Admit Date: 10/13/2008 VANESSA RAY Sex: F Admit Prov: ER, AUTHORIZED P Date: 1975 Primary Care Prov: PCP , NONE CMRN: [id number] Room: ER-B SSN: [id number] IMAGING SERVICES Ordering Prov: N/A Accession Number: [id number] Interpretation CT SCAN OF THE ABDOMEN AND PELVIS WITHOUT CONTRAST, 10/13/08 Clinical History: Abdominal pain and vomiting. Technique: 5 mm contiguous axial images were obtained from the lung bases to the symphysis pubis without contrast. Findings: The lung bases are clear. The gallbladder has been removed. The unenhanced liver, spleen, pancreas, adrenal glands and kidneys are within normal limits. The stomach is distended with an air-fluid level and there is fluid in the mid and distal small bowel, but there is no bowel dilatation or wall thickening; these findings may represent gastroenteritis. There is no free air, free fluid or lymphadenopathy. In the pelvis, the appendix is not visualized but there is no pericecal fluid. The bowel loops, uterus, adnexa and bladder are normal. There is no free fluid. Impression: 1. Status post cholecystectomy. 2. Findings described above which may be related to gastroenteritis. 3. No evidence of bowel obstruction or abscess. . Dictated by: KATHY CAMARENA 10/13/2008 20:41 Electronically signed by: KATHY CAMARENA 10/13/2008 20:54 Transcribed: 10/13/2008 20:53 LE Procedure Note Kathy Camarena MD - 10/13/2008 [facility] [address] [place] [address] Admit Date: 10/13/2008 VANESSA RAY Sex: F Admit Prov: ER, AUTHORIZED P Date: 1975 Primary Care Prov: PCP , NONE CMRN: [id number] [facility] [id number] IMAGING SERVICES Ordering Prov: N/A Interpretation CT SCAN OF THE ABDOMEN AND PELVIS WITHOUT CONTRAST, 10/13/08 Clinical History: Abdominal pain and vomiting. Technique: 5 mm contiguous axial images were obtained from the lungbases to the symphysis pubis without contrast. Findings: The lung bases are clear. The gallbladder has been removed.The unenhanced liver, spleen, pancreas, adrenal glands and kidneys arewithin normal limits. The stomach is distended with an air-fluid level andthere is fluid in the mid and distal small bowel, but there is no bowel dilatation or wall thickening; these findings may represent gastroenteritis. There is no free air, free fluid orlymphadenopathy. In the pelvis, the appendix is not visualized but there is nopericecal fluid. The bowel loops, uterus, adnexa and bladder are normal. Thereis no free fluid. Impression: 1. Status post cholecystectomy. 2. Findings described above which may be related togastroenteritis. 3. No evidence of bowel obstruction or abscess. . Dictated by: KATHY CAMARENA 10/13/2008 20:41 Electronically signed by: KATHY CAMARENA 10/13/2008 20:54 Transcribed: 10/13/2008 20:53 LE us Ervin Alvarenga MD CT ORDERABLES Final Result * HEPATIC FUNCTION PANEL (10/13/2008 7:00 PM RECEIVING CHECKER) TOTAL PROTEIN 7.9 6.0 - 8.3 g/dL [facility] BILIRUBIN TOTAL 0.4 0.2 - 1.0 mg/dL [facility] ALT 17 0 - 31 U/L [facility] AST 16 12 - 32 U/L [facility] BILIRUBIN DIRECT <0.2 0.0 - 0.3 mg/dL [facility] ALBUMIN 4.8 3.4 - 4.8 g/dL [facility] ALKALINE PHOSPHATASE 69 35 - 104 U/L [facility] Blood specimen (specimen) 10/13/2008 7:00 PM RECEIVING CHECKER 10/13/2008 7:14 PM RECEIVING CHECKER Ervin Alvarenga MD CHEMISTRY ORDERABLES Final Res ult Performing Organization Address City/[facility] de Phone Number INTERFACE SYSTEM Refer to clinic/hospital department [facility] CLIA# [id number] [address] [place] [address] * LIPASE (10/13/2008 7:00 PM RECEIVING CHECKER) LIPASE 15 13 - 60 U/L [facility] Blood specimen (specimen) 10/13/2008 7:00 PM RECEIVING CHECKER 10/13/2008 7:14 PM RECEIVING CHECKER us Ervin Alvarenga MD CHEMISTRY ORDERABLES Final Res ult Performing Organization Address [facility] de Phone Number INTERFACE SYSTEM Refer to clinic/hospital department [facility] CLIA# [id number] [address] [place] [address] * CBC WITH DIFFERENTIAL (10/13/2008 7:00 PM RECEIVING CHECKER) MPV 9.4 9.3 - 12.4 fL [facility] HEMATOCRIT 39.1 35.5 - 44.0 % [facility] RDW-STDEV 39.4 37.1 - 48.7 fL [facility] RBC 4.38 3.90 - 4.90 M/uL [facility] MCHC 34.3 31.5 - 35.5 % [facility] PLATELETS 295 140 - 350 K/uL [facility] MCV 89.3 82.0 - 99.0 fL [facility] HEMOGLOBIN 13.4 11.8 - 14.8 g/dL [facility] RDW 12.2 11.5 - 14.5 % [facility] WBC 6.0 4.0 - 9.8 K/uL [facility] MCH 30.6 27.2 - 32.6 pg [facility] EOSINOPHILS 1 0 - 7 % [facility] EOSINOPHIL ABSOLUTE 0.05 0.00 - 0.70 K/uL [facility] LYMPHOCYTES 26 16 - 45 % [facility] LYMPHOCYTE ABSOLUTE 1.54 0.70 - 4.50 K/uL [facility] BASOPHILS 1 0 - 2 % [facility] BASOPHILS ABSOLUTE 0.03 0.00 - 0.20 K/uL [facility] MONOCYTES 8 3 - 13 % [facility] MONOCYTE ABSOLUTE 0.47 0.10 - 1.30 K/uL [facility] NEUTROPHILS 65 45 - 70 % [facility] NEUTROPHIL ABSOLUTE 3.88 1.90 - 7.00 K/uL [facility] Blood specimen (specimen) 10/13/2008 7:00 PM RECEIVING CHECKER 10/13/2008 7:14 PM RECEIVING CHECKER us Ervin Alvarenga MD HEMATOLOGY ORDERABLES Edited INTERFACE SYSTEM Refer to clinic/hospital department [facility] CLIA# [id number] [address] [place] [address] * (ABNORMAL) BASIC METABOLIC PANEL (10/13/2008 7:00 PM RECEIVING CHECKER) POTASSIUM 3.3(L) 3.5 - 4.9 mmol/L [facility] GLUCOSE 89 65 - 99 mg/dL [facility] BUN 17 6 - 20 mg/dL [facility] CREATININE 0.59 0.51 - 0.95 mg/dL [facility] CHLORIDE 101 96 - 108 mmol/L [facility] SODIUM 137 135 - 145 mmol/L [facility] CO2 25 22 - 30 mmol/L [facility] CALCIUM 9.8 8.6 - 10.2 mg/dL [facility] GFR, >60 >=60 mL/min/1. 7 sq meter [facility] GFR >60 >=60 mL/min/1. 7 sq meter [facility] Comment: Modification of Diet in Renal Disease (MDRD) study formula. Estimated GFR rate interpretative information for both Americans and non- Americans is available on the [facility] Intranet at: [email or web address] Select: Lab Policies and Procedures Select: Reference Ranges - GFR Blood specimen (specimen) 10/13/2008 7:00 PM RECEIVING CHECKER 10/13/2008 7:14 PM RECEIVING CHECKER us Ervin Alvarenga MD CHEMISTRY ORDERABLES Edited Performing Organization Address City/[facility] de Phone Number INTERFACE SYSTEM Refer to clinic/hospital department [facility] CLIA# [id number] [address] [place] [address] * URINE CULTURE (10/13/2008 6:40 PM RECEIVING CHECKER) PRELIMINARY REPORT Pending [facility] FINAL REPORT No growth [facility] 10/13/2008 6:40 PM RECEIVING CHECKER 10/13/2008 7:33 PM RECEIVING CHECKER us Ervin Alvarenga MD MICROBIOLOGY - GENERAL ORDERAB LES Final Result Performing Organization Address City/[facility] de Phone Number INTERFACE SYSTEM Refer to clinic/hospital department [facility] CLIA# [id number] [address] [place] [address] * (ABNORMAL) URINALYSIS (10/13/2008 6:40 PM RECEIVING CHECKER) KETONES UA 2+(A) Negative [facility] CLARITY UA Cloudy(A) Clear [facility] BLOOD UA 4+(A) Negative [facility] PROTEIN UA 1+(A) Negative [facility] LEUKOCYTE ESTERASE UA Negative Negative [facility] UROBILINOGEN UA <1 <1 mg/dL [facility] SPECIFIC GRAVITY UA 1.025 1.001 - 1.035 [facility] GLUCOSE UA Negative Negative [facility] COLOR UA Yellow [facility] NITRITE UA Negative Negative [facility] BILIRUBIN UA Negative Negative [facility] PH UA 5.0 5.0 - 8.0 [facility] RBC UA Many(A) 0 - 2 /HPF [facility] MUCOUS, URINE 1+ [facility] BACTERIA UA Trace None Seen /HPF [facility] WBC UA 0-5 0 - 5 /HPF [facility] EPITHELIAL CELLS, URINE 2-5 /HPF [facility] 10/13/2008 6:40 PM RECEIVING CHECKER 10/13/2008 7:14 PM RECEIVING CHECKER us Ervin Alvarenga MD URINE ORDERABLES Edited INTERFACE SYSTEM Refer to clinic/hospital department [facility] CLIA# [id number] [address] [place] [address] * URINALYSIS WITH REFLEX CULTURE (10/13/2008 6:40 PM RECEIVING CHECKER) URINE CULTURE ORDER Culture ordered [facility] Comment: Criteria for a reflex culture include one or more of the following: Abnormal WBCs, RBCs or bacteria. Lack of qualifying criteria does not exclude the possibility of a urinary tract infection. Dilute urine, drug interference, etc. may decrease the sensitivity of the criteria analytes. Urine specimen (specimen) 10/13/2008 6:40 PM RECEIVING CHECKER 10/13/2008 7:14 PM RECEIVING CHECKER us Ervin Alvarenga MD URINE ORDERABLES Final Result INTERFACE SYSTEM Refer to clinic/hospital department [facility] CLIA# [id number] [address] [place] [address] documented in this encounter Visit Diagnoses Diagnosis Abdominal pain, other specified site Hematuria, unspecified documented in this encounter Care Teams Calker Relationship Specialty Start Date End Date Mike Desouza MD [address] [place] [address] PCP - General 11/02/23 documented as of this encounter
--- OUTSIDE RECORDS SUMMARY | 2025-04-02 10:14 | XMS_ITS | Encounter Summary ---
Author Organization [employer] Address [address] [place] [address] Care Team Providers Care Online Merchandiser Name Role Phone Mike Desouza MD Primary Care Provider [phone] Encounter Details Date Type Department Care Team (Latest Contact Info) Description 12/13/1998 Outpatient Historical HIS PATIENT IN A BED Mya Morgan MD [address] [facility] [address] [place] [address] Guillaume Godinez MD NO ADDRESS ON FILE Other current maternal conditions classifiable elsewhere, antepartum (Primary Dx) Social History Tobacco Use Types Packs/Day Years Used Date Smoking Tobacco: Never Assessed Comments Unknown Sex and Gender Information Value Date Recorded Sex Assigned at Not on file Legal Sex Female 2:42 AM AUCTION ASSISTANT Gender Identity Not on file Sexual Orientation Not on file documented as of this encounter Plan of Treatment Not on file documented as of this encounter Visit Diagnoses Diagnosis Other current maternal conditions classifiable elsewhere, antepartum- Primary documented in this encounter Care Teams Online Merchandiser Relationship Specialty Start Date End Date Mike Desouza MD [address] [place] [address] [place] [phone] PCP - General 11/02/23 documented as of this encounter
--- OUTSIDE RECORDS SUMMARY | 2025-04-02 10:14 | XMS_ITS | Encounter Summary ---
Author Organization [employer] Address [address] [place] [address] Care Team Providers Care Insulation Applicator Name Role Phone Mike Desouza MD Primary Care Provider [phone] [phone] Encounter Details Date Type Department Care Team (Latest Contact Info) Description 09/13/2000 Outpatient Historical [facility] Guillaume Godinez MD NO ADDRESS ON FILE Unspecified ectopic (Primary Dx) Social History Tobacco Use Types Packs/Day Years Used Date Smoking Tobacco: Never Assessed Comments Unknown Sex and Gender Information Value Date Recorded Sex Assigned at Not on file Legal Sex Female 2:42 AM SAW OFFBEARER Gender Identity Not on file Sexual Orientation Not on file documented as of this encounter Plan of Treatment Not on file documented as of this encounter Visit Diagnoses Diagnosis Unspecified ectopic - Primary documented in this encounter Care Teams Insulation Applicator Relationship Specialty Start Date End Date Mike Desouza MD [facility] [address] [place] [phone] PCP - General 11/02/23 documented as of this encounter
--- OUTSIDE RECORDS SUMMARY | 2025-04-02 10:14 | XMS_ITS | Encounter Summary ---
Author Organization [employer] Address [address] [place] [address] Care Team Providers Care Micro Computer Data Processor Name Role Phone Mike Desouza MD Primary Care Provider [phone] [phone] Encounter Details Date Type Department Care Team (Late st Contact Info) Description 06/22/2008 Outpatient Historical [facility] EMERGENCY ROOM WASH Er, Authorized P NO ADDRESS ON FILE Nikolai Leblanc MD [address] [facility] [place] [address] Social History Tobacco Use Types Packs/Day Years Used Date Smoking Tobacco: Never Assessed Comments Unknown Sex and Gender Information Value Date Recorded Sex Assigned at Not on file Legal Sex Female 2:42 AM CHIEF CONSOLE OPERATOR Gender Identity Not on file Sexual Orientation Not on file documented as of this encounter Plan of Treatment Not on file documented as of this encounter Procedures Procedure Name Priority Date/Time Associated Diagnosis Comments URINALYSIS WITH REFLEX CULTURE Stat 06/22/2008 4:18 AM CDT URINALYSIS W/REFLEX MICROSCOPIC Stat 06/22/2008 4:18 AM CDT URINE CULTURE Stat 06/22/2008 4:18 AM CDT CBC WITH DIFFERENTIAL Stat 06/22/2008 4:10 AM CDT HEPATIC FUNCTION PANEL Stat 06/22/2008 4:10 AM CDT BASIC METABOLIC PANEL Stat 06/22/2008 4:10 AM CDT documented in this encounter Results * URINE CULTURE (06/22/2008 4:18 AM CDT) PRELIMINARY REPORT Pending [facility] FINAL REPORT 10-50,000 colonies/mL Polymicrobial growth consistent with normal urethral anay [facility] 06/22/2008 4:18 AM CDT 06/22/2008 5:00 AM CDT us Nikolai Leblanc MD MICROBIOLOGY - GENERAL [place] [facility] Final Result INTERFACE SYSTEM Refer to clinic/hospital department [facility] CLIA# [id number] [address] [place] [address] * (ABNORMAL) URINALYSIS (06/22/2008 4:18 AM CDT) Pathologist [facility] KETONES UA Negative Negative [facility] CLARITY UA Cloudy(A) Clear [facility] NITRITE UA Negative Negative [facility] BLOOD UA 4+(A) Negative [facility] LEUKOCYTE ESTERASE UA Trace(A) Negative [facility] SPECIFIC GRAVITY UA 1.020 1.001 - 1.035 [facility] UROBILINOGEN UA <1 <1 mg/dL [facility] PROTEIN UA 1+(A) Negative [facility] COLOR UA Yellow [facility] GLUCOSE UA Negative Negative [facility] BILIRUBIN UA Negative Negative [facility] PH UA 5.0 5.0 - 8.0 [facility] WBC UA 0-5 0 - 5 /HPF [facility] BACTERIA UA Trace None Seen /HPF [facility] AMORPHOUS URATES, URINE Many /HPF [facility] RBC UA 25-50(A) 0 - 2 /HPF [facility] 06/22/2008 4:18 AM CDT 06/22/2008 4:25 AM CDT Nikolai Leblanc MD URINE ORDERABLES Edited Performing Organization Address [facility] Phone Number INTERFACE SYSTEM Refer to clinic/hospital department [facility] CLIA# [id number] [address] [place] [address] * URINALYSIS WITH REFLEX CULTURE (06/22/2008 4:18 AM CDT) URINE CULTURE ORDER Culture ordered [facility] Comment: Criteria for a reflex culture include one or more of the following: Abnormal WBCs, RBCs or bacteria. Lack of qualifying criteria does not exclude the possibility of a urinary tract infection. Dilute urine, drug interference, etc. may decrease the sensitivity of the criteria analytes. Urine specimen (specimen) 06/22/2008 4:18 AM CDT 06/22/2008 4:25 AM CDT Nikolai Leblanc MD URINE ORDERABLES Final Resu lt Performing Organization Address [facility] Phone Number INTERFACE SYSTEM Refer to clinic/hospital department [facility] CLIA# [id number] [address] [place] [address] * HEPATIC FUNCTION PANEL (06/22/2008 4:10 AM CDT) BILIRUBIN DIRECT <0.2 0.0 - 0.3 mg/dL [facility] ALKALINE PHOSPHATASE 67 35 - 104 U/L [facility] TOTAL PROTEIN 7.3 6.0 - 8.3 g/dL [facility] BILIRUBIN TOTAL 0.2 0.2 - 1.0 mg/dL [facility] ALT 20 0 - 31 U/L [facility] AST 27 12 - 32 U/L [facility] ALBUMIN 4.4 3.4 - 4.8 g/dL [facility] Blood specimen (specimen) 06/22/2008 4:10 AM CDT 06/22/2008 4:22 AM CDT us Nikolai Leblanc MD CHEMISTRY ORDERABLES Final Result INTERFACE SYSTEM Refer to clinic/hospital department [facility] CLIA# [id number] [address] [place] [address] * CBC WITH DIFFERENTIAL (06/22/2008 4:10 AM CDT) PLATELETS 253 140 - 350 K/uL [facility] MCV 90.5 82.0 - 99.0 fL [facility] RDW 12.3 11.5 - 14.5 % [facility] HEMOGLOBIN 13.1 11.8 - 14.8 g/dL [facility] MPV 9.7 9.3 - 12.4 fL [facility] WBC 6.5 4.0 - 9.8 K/uL [facility] MCH 30.3 27.2 - 32.6 pg [facility] RDW-STDEV 40.8 37.1 - 48.7 fL [facility] HEMATOCRIT 39.1 35.5 - 44.0 % [facility] MCHC 33.5 31.5 - 35.5 % [facility] RBC 4.32 3.90 - 4.90 M/uL [facility] MONOCYTES 9 3 - 13 % [facility] MONOCYTE ABSOLUTE 0.61 0.10 - 1.30 K/uL [facility] NEUTROPHILS 65 45 - 70 % [facility] NEUTROPHIL ABSOLUTE 4.21 1.90 - 7.00 K/uL [facility] EOSINOPHILS 1 0 - 7 % [facility] EOSINOPHIL ABSOLUTE 0.05 0.00 - 0.70 K/uL [facility] LYMPHOCYTES 25 16 - 45 % [facility] LYMPHOCYTE ABSOLUTE 1.59 0.70 - 4.50 K/uL [facility] BASOPHILS 1 0 - 2 % [facility] BASOPHILS ABSOLUTE 0.03 0.00 - 0.20 K/uL [facility] Blood specimen (specimen) 06/22/2008 4:10 AM CDT 06/22/2008 4:23 AM CDT us Nikolai Leblanc MD HEMATOLOGY ORDERABLES Edite d INTERFACE SYSTEM Refer to clinic/hospital department [facility] CLIA# [id number] [address] [place] [address] * BASIC METABOLIC PANEL (06/22/2008 4:10 AM CDT) POTASSIUM 3.7 3.5 - 4.9 mmol/L [facility] BUN 15 6 - 20 mg/dL [facility] GLUCOSE 97 65 - 99 mg/dL [facility] CHLORIDE 104 96 - 108 mmol/L [facility] CREATININE 0.66 0.51 - 0.95 mg/dL [facility] SODIUM 143 135 - 145 mmol/L [facility] CO2 23 22 - 30 mmol/L [facility] CALCIUM 9.3 8.6 - 10.2 mg/dL [facility] GFR, >60 >=60 mL/min/1.7 sq meter [facility] GFR >60 >=60 mL/min/1.7 sq meter [facility] Comment: Modification of Diet in Renal Disease (MDRD) study formula. Estimated GFR rate interpretative information for both Americans and non- Americans is available on the [facility] Intranet at: [email or web address] Select: Lab Policies and Procedures Select: Reference Ranges - GFR Blood specimen (specimen) 06/22/2008 4:10 AM CDT 06/22/2008 4:22 AM CDT us Nikolai Leblanc MD CHEMISTRY ORDERABLES Edited INTERFACE SYSTEM Refer to clinic/hospital department [facility] CLIA# [id number] [address] [place] [address] documented in this encounter Visit Diagnoses Not on filedocumented in this encounter Care Teams Micro Computer Data Processor Relationship Specialty Start Date End Date Mike Desouza MD [address] [place] [address] PCP - General 11/02/23 documented as of this encounter
[2025-04-02] MEDS: HYDROmorphone HCL INJ (*CRX) 2 MG/ML VIAL 0.5 MG IV PUSH (10:21)
[2025-04-02 10:24] LABS: Alanine Aminotransferase 19 U/L (6-35); Alkaline Phosphatase 58 U/L (38-126); Anion Gap 5 mmol/L (4-12); Aspartate Amino Transferase 30 U/L (14-36); Bilirubin,Total 0.3 mg/dL (0.2-1.3); Blood Urea Nitrogen 13 mg/dL (7-17); Calcium 8.6 mg/dL (8.4-10.2); Carbon Dioxide 22 mmol/L (22-30); Chloride 109 mmol/L (98-107); Estimated CRCL calculation 98 ml/min; Estimated Glomerular Filt Rate > 60; Glucose 106 mg/dL (65-110); Lipase 44 U/L (23-300); Osmolality Calculated 282 mOsm/kg (285-295); Potassium 3.6 mmol/L (3.4-5.0); Sodium 136 mmol/L (137-145); Total Protein 6.8 g/dL (6.3-8.2)
[2025-04-02 10:28] LABS: INR 0.9; Partial Thromboplastin Time 31.6 Sec (23.9-30.70); Prothrombin Time 9.8 Seconds (9.50-12.1)
--- NOTE | 2025-04-02 10:36 | PC.NURSE ---
compressor service technician attempted to take Pt for imaging. Pt states that she is still in too much pain to lay still for CT scan. ERP aware.
[2025-04-02] MEDS: HYDROmorphone HCL INJ (*CRX) 2 MG/ML VIAL 1 MG IV PUSH (10:46)
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
--- OUTSIDE RECORDS SUMMARY | 2025-04-02 11:07 | XMS_ITS | Encounter Summary ---
Author Organization [facility] Address [address] [place] [address] Care Team Providers Care Dinkey Engine Mechanic Name Role Phone Mike Desouza MD Primary Care Provider [phone] Encounter Details Date Type Department Care Team (Late st Contact Info) Description 12/01/2008 Outpatient Historical HIS EMERGENCY ROOM WASH Er, Authorized P NO ADDRESS ON FILE Dustin Gallardo MD [address] [place] [address] [place] [address] Social History Tobacco Use Types Packs/Day Years Used Date Smoking Tobacco: Never Assessed Comments Unknown Sex and Gender Information Value Date Recorded Sex Assigned at Not on file Legal Sex Female 2:42 AM RADIOCOMMUNICATIONS TECHNICIAN Gender Identity Not on file Sexual Orientation Not on file documented as of this encounter Plan of Treatment Not on file documented as of this encounter Procedures Procedure Name Priority Date/Time Associated Diagnosis Comments URINALYSIS W/REFLEX MICROSCOPIC Stat 12/01/2008 11:49 AM RADIOCOMMUNICATIONS TECHNICIAN documented in this encounter Results * (ABNORMAL) URINALYSIS (12/01/2008 11:49 AM RADIOCOMMUNICATIONS TECHNICIAN) SPECIFIC GRAVITY UA 1.025 1.001 - 1.035 [facility] GLUCOSE UA Negative Negative [facility] COLOR UA Yellow [facility] NITRITE UA Negative Negative [facility] BILIRUBIN UA Negative Negative [facility] PH UA 5.0 5.0 - 8.0 [facility] KETONES UA Negative Negative [facility] CLARITY UA Cloudy(A) Clear [facility] BLOOD UA 4+(A) Negative [facility] PROTEIN UA Trace(A) Negative [facility] LEUKOCYTE ESTERASE UA Trace(A) Negative [facility] UROBILINOGEN UA <1 <1 mg/dL [facility] MICRO COMMENT Spermatozoa present [facility] BACTERIA UA None Seen None Seen /HPF [facility] WBC UA 5-10(A) 0 - 5 /HPF [facility] EPITHELIAL CELLS, URINE 2-5 /HPF [facility] RBC UA Many(A) 0 - 2 /HPF [facility] 12/01/2008 11:4 9 AM RADIOCOMMUNICATIONS TECHNICIAN 12/01/2008 11:58 AM RADIOCOMMUNICATIONS TECHNICIAN us Reggie Ramirez MD URINE ORDERABLES Edited INTERFACE SYSTEM Refer to clinic/hospital department [facility] CLIA# [id number] [address] [place] [address] documented in this encounter Visit Diagnoses Not on filedocumented in this encounter Care Teams Dinkey Engine Mechanic Relationship Specialty Start Date End Date Mike Desouza MD [address] [place] [phone] PCP - General 11/02/23 documented as of this encounter
--- OUTSIDE RECORDS SUMMARY | 2025-04-02 11:08 | XMS_ITS | Encounter Summary ---
Author Organization [facility] Address [address] [place] [address] Care Team Providers Care Rn Or Lvn Name Role Phone Mike Desouza MD Primary Care Provider +1 [phone] Encounter Details Date Type Department Care Team [...] on file Legal Sex Female 2:42 AM MEDICAL SECRETARY RECEPTIONIST Gender Identity Not on file Sexual Orientation Not on file documented as of this encounter Plan of Treatment Not on file documented as of this encounter Visit Diagnoses Diagnosis Screening for malignant neoplasm of the cervix- Primary documented in this encounter Care Teams Rn Or Lvn Relationship Specialty Start Date End Date Mike Desouza MD [address] [place] [address] [place] [address] PCP - General 11/02/23 documented as of this encounter
--- OUTSIDE RECORDS SUMMARY | 2025-04-02 11:08 | XMS_ITS | Encounter Summary ---
Author Organization [facility] Address [address] [place] [address] Care Team Providers Care Jewelry Bench Worker Name Role Phone Mike Desouza MD Primary Care Provider +1 [phone] Encounter Details Date Type Department Care Team (Late st Contact Info) Description 05/02/2009 Outpatient Historical [facility] Er, Authorized P NO ADDRESS ON FILE Ervin Membreno MD [address] [place] [address] Social History Tobacco Use Types Packs/Day Years Used Date Smoking Tobacco: Never Assessed Comments Unknown Sex and Gender Information Value Date Recorded Sex Assigned at Not on file Legal Sex Female 2:42 AM CHIEF VENDOR QUALITY Gender Identity Not on file Sexual Orientation [...] SPECIFIC GRAVITY UA 1.015 1.001 - 1.035 [facility] , URINE POC Negative Negative [facility] CLIA LICENSE [id number] [facility] 05/02/2009 8:24 PM CDT 05/02/2009 8:24 PM CDT us Authorized P Er POINT OF CARE TESTING Final Resu lt INTERFACE SYSTEM Refer to clinic/hospital department [facility] CLIA# [id number] [address] [place] [address] * (ABNORMAL) POC URINALYSIS DIPSTICK AUTOMATED (05/02/2009 8:22 PM CDT) COLOR UA Foard [facility] NITRITE UA Negative Negative [facility] BILIRUBIN UA Negative Negative [facility] [place] [place] PH UA 8.0 5.0 - 8.0 [facility] CLIA LICENSE [id number] [facility] KETONES UA Negative Negative [facility] CLARITY UA Slightly cloudy [facility] BLOOD UA 2+(A) Negative [facility] PROTEIN UA Negative Negative [facility] LEUKOCYTE ESTERASE UA Negative Negative [facility] UROBILINOGEN UA Normal <=1 mg/dL [facility] SPECIFIC GRAVITY UA 1.015 1.001 - 1.030 [facility] GLUCOSE UA Negative Negative [facility] COMMENT, URINE Test not chrgd/to repeat [facility] 05/02/2009 8:22 PM CDT 05/02/2009 8:22 PM CDT us Authorized P Er POINT OF CARE TESTING Edited Performing Organization Address [facility] Co de Phone Number INTERFACE SYSTEM Refer to clinic/hospital department [facility] CLIA# [id number] [address] [place] [address] * URINE CULTURE (05/02/2009 8:06 PM CDT) PRELIMINARY REPORT Pending [facility] FINAL REPORT No growth 24 hours [facility] 05/02/2009 8:06 PM CDT 05/02/2009 9:31 PM CDT us Ervin Membreno MD MICROBIOLOGY - GENERAL ORDERA BLES Final Result Performing Organization Address [facility] de Phone Number INTERFACE SYSTEM Refer to clinic/hospital department [facility] CLIA# [id number] [address] [place] [address] * (ABNORMAL) URINALYSIS (05/02/2009 8:06 PM CDT) SPECIFIC GRAVITY UA 1.016 1.001 - 1.035 [facility] GLUCOSE UA Negative Negative [facility] BLOOD UA 3+(A) Negative [facility] COLOR UA De Beque [facility] NITRITE UA Negative Negative [facility] BACTERIA UA 1+(A) None Seen /HPF [facility] UROBILINOGEN UA <1 <=1 mg/dL [facility] PH UA 8.0 5.0 - 8.0 [facility] WBC UA 2 0 - 5 /HPF [facility] KETONES UA Negative Negative [facility] CLARITY UA Clear Clear [facility] BILIRUBIN UA Negative Negative [facility] [place] PROTEIN UA Confirmed--N egative Negative [facility] EPITHELIAL CELLS, URINE 2-5 /HPF [facility] LEUKOCYTE ESTERASE UA Negative Negative [facility] RBC UA >100(H) 0 - 4 /HPF [facility] 05/02/2009 8:06 PM CDT 05/02/2009 8:34 PM CDT Ervin Membreno MD URINE ORDERABLES Final Result Performing Organization Address [facility] de Phone Number INTERFACE SYSTEM Refer to clinic/hospital department [facility] CLIA# [id number] [address] [place] [address] * URINALYSIS WITH REFLEX CULTURE (05/02/2009 8:06 PM CDT) URINE CULTURE ORDER Culture ordered [facility] Comment: Criteria for a reflex culture [...] URINE ORDERABLES Final Result Performing Organization Address [facility] de Phone Number INTERFACE SYSTEM Refer to clinic/hospital department [facility] CLIA# [id number] [address] [place] [address] * LIPASE (05/02/2009 8:06 PM CDT) LIPASE 16 13 - 60 U/L [facility] 05/02/2009 8:06 PM CDT 05/02/2009 8:24 PM CDT Ervin Membreno MD CHEMISTRY ORDERABLES Final Re sult Performing Organization Address [facility] Phone Number INTERFACE SYSTEM Refer to clinic/hospital department [facility] CLIA# [id number] [address] [place] [address] * C-REACTIVE PROTEIN (05/02/2009 8:06 PM CDT) CRP 0.5 0.0 - 0.8 mg/dL [facility] 05/02/2009 8:06 PM CDT 05/02/2009 8:24 PM CDT us Ervin Membreno MD CHEMISTRY ORDERABLES Final Re sult Performing Organization Address [facility] de Phone Number INTERFACE SYSTEM Refer to clinic/hospital department [facility] CLIA# [id number] [address] [place] [address] * (ABNORMAL) COMPREHENSIVE METABOLIC PANEL (05/02/2009 8:06 PM CDT) ALKALINE PHOSPHATASE 71 35 - 104 U/L [facility] CO2 24 22 - 30 mmol/L [facility] BILIRUBIN TOTAL 0.2 0.2 - 1.0 mg/dL [facility] POTASSIUM 4.0 3.5 - 4.9 mmol/L [facility] TOTAL PROTEIN 6.8 6.3 - 8.6 g/dL [facility] GLUCOSE 110(H) 65 - 99 mg/dL [facility] AST 24 12 - 32 U/L [facility] BUN 14 6 - 20 mg/dL [facility] CALCIUM 9.2 8.6 - 10.2 mg/dL [facility] ALBUMIN 4.2 3.4 - 4.8 g/dL [facility] CHLORIDE 105 96 - 108 mmol/L [facility] CREATININE 0.73 0.51 - 0.95 mg/dL [facility] ALT 21 0 - 31 U/L [facility] SODIUM 137 135 - 145 mmol/L [facility] GFR, >60 >=60 mL/min/1. 7 sq meter [facility] GFR >60 >=60 mL/min/1. 7 sq meter [facility] Comment: Modification of Diet in Renal Disease (MDRD) study formula. Estimated GFR rate interpretative information for both Americans and non- Americans is available on the [facility] Intranet at: [email or web address] Select: Lab Policies and Procedures Select: Reference Ranges - GFR 05/02/2009 8:06 PM CDT 05/02/2009 8:24 PM CDT Ervin Membreno MD CHEMISTRY ORDERABLES Edited INTERFACE SYSTEM Refer to clinic/hospital department [facility] CLIA# [id number] [address] [place] [address] * (ABNORMAL) CBC WITH DIFFERENTIAL (05/02/2009 8:06 PM CDT) RBC 3.87(L) 3.90 - 4.90 M/uL [facility] MCHC 33.9 31.5 - 35.5 % [facility] MCV 89.1 82.0 - 99.0 fL [facility] PLATELETS 237 140 - 350 K/uL [facility] HEMOGLOBIN 11.7(L) 11.8 - 14.8 g/dL [facility] RDW 12.7 11.5 - 14.5 % [facility] WBC 4.2 4.0 - 9.8 K/uL [facility] MCH 30.2 27.2 - 32.6 pg [facility] MPV 9.2(L) 9.3 - 12.4 fL [facility] HEMATOCRIT 34.5(L) 35.5 - 44.0 % [facility] RDW-STDEV 40.9 37.1 - 48.7 fL [facility] NEUTROPHILS 48 45 - 70 % [facility] NEUTROPHIL ABSOLUTE 2.00 1.90 - 7.00 K/uL [facility] EOSINOPHILS 6 0 - 7 % [facility] EOSINOPHIL ABSOLUTE 0.26 0.00 - 0.70 K/uL [facility] LYMPHOCYTES 35 16 - 45 % [facility] LYMPHOCYTE ABSOLUTE 1.46 0.70 - 4.50 K/uL [facility] BASOPHILS 1 0 - 2 % [facility] BASOPHILS ABSOLUTE 0.04 0.00 - 0.20 K/uL [facility] MONOCYTES 10 3 - 13 % [facility] MONOCYTE ABSOLUTE 0.40 0.10 - 1.30 K/uL [facility] 05/02/2009 8:06 PM CDT 05/02/2009 8:24 PM CDT us Ervin Membreno MD HEMATOLOGY ORDERABLES Edited INTERFACE SYSTEM Refer to clinic/hospital department [facility] CLIA# [id number] [address] [place] [address] documented in this encounter Visit Diagnoses Not on filedocumented in this encounter Care Teams Jewelry Bench Worker Relationship Specialty Start Date End Date Mike Desouza MD [address] [place] [phone] PCP - General 11/02/23 documented as of this encounter
--- OUTSIDE RECORDS SUMMARY | 2025-04-02 11:08 | XMS_ITS | Encounter Summary ---
Author Organization [employer] Address [address] [place] [address] Care Team Providers Care Program Coordinator Name Role Phone Mike Desouza MD Primary Care Provider +1 -[phone] Encounter Details Date Type Department Care Team [...] on file Legal Sex Female 2:42 AM LITIGATION SPECIALIST Gender Identity Not on file Sexual Orientation Not on file documented as of this encounter Plan of Treatment Not on file documented as of this encounter Visit Diagnoses Diagnosis Corpus luteum cyst or hematoma- Primary documented in this encounter Care Teams Program Coordinator Relationship Specialty Start Date End Date Mike Desouza MD [facility] [address] [place] [phone] PCP - General 11/02/23 documented as of this encounter
--- OUTSIDE RECORDS SUMMARY | 2025-04-02 11:08 | XMS_ITS | Encounter Summary ---
Author Organization [employer] Address [address] [place] [address] Care Team Providers Care Operator Automated Process Name Role Phone Mike Desouza MD Primary Care Provider +1 -[phone] Encounter Details Date Type Department Care Team (Latest Contact Info) Description 10/15/2000 Outpatient Historical [facility] Guillaume Godinez MD NO ADDRESS ON FILE Unspecified ectopic (Primary Dx) Social History Tobacco Use Types Packs/Day Years Used Date Smoking Tobacco: Never Assessed Comments Unknown Sex and Gender Information Value Date Recorded Sex Assigned at Not on file Legal Sex Female 2:42 AM RECYCLING COORDINATOR Gender Identity Not on file Sexual Orientation Not on file documented as of this encounter Plan of Treatment Not on file documented as of this encounter Visit Diagnoses Diagnosis Unspecified ectopic - Primary documented in this encounter Care Teams Operator Automated Process Relationship Specialty Start Date End Date Mike Desouza MD [facility] [address] [place] [phone] PCP - General 11/02/23 documented as of this encounter
--- OUTSIDE RECORDS SUMMARY | 2025-04-02 11:08 | XMS_ITS | Encounter Summary ---
Author Organization [employer] Address [address] [place] [address] Care Team Providers Care Concrete Mixing Truck Driver Name Role Phone Mike Desouza MD Primary Care Provider +1 -[phone] Encounter Details Date Type Department Care Team (Latest Contact Info) Description 02/03/1999 Outpatient Historical [facility] Guillaume Godinez MD NO ADDRESS ON FILE Threatened premature labor, antepartum(644.03) (Primary Dx) Social History Tobacco Use Types Packs/Day Years Used Date Smoking Tobacco: Never Assessed Comments Unknown Sex and Gender Information Value Date Recorded Sex Assigned at Not on file Legal Sex Female 2:42 AM ORACLE DATABASE ADMINISTRATOR Gender Identity Not on file Sexual Orientation Not on file documented as of this encounter Plan of Treatment Not on file documented as of this encounter Visit Diagnoses Diagnosis Threatened premature labor, antepartum(644.03)- Primary Threatened premature labor, antepartum documented in this encounter Care Teams Concrete Mixing Truck Driver Relationship Specialty Start Date End Date Mike Desouza MD [facility] [address] [place] [address] PCP - General 11/02/23 documented as of this encounter
--- OUTSIDE RECORDS SUMMARY | 2025-04-02 11:08 | XMS_ITS | Encounter Summary ---
Author Organization [employer] Address [address] [place] [address] Care Team Providers Care Showroom Salesperson Name Role Phone Mike Desouza MD Primary Care Provider +1 -[phone] Encounter Details Date Type Department Care Team (Late st Contact Info) Description 07/11/1999 Outpatient Historical [facility] EM[facility] Anderson [place], [address] [facility] [address] [place] [address] Er, Authorized P NO ADDRESS ON FILE Other specified noninflammatory disorder of vagina (Primary Dx) Social History Tobacco Use Types Packs/Day Years Used Date Smoking Tobacco: Never Assessed Comments Unknown Sex and Gender Information Value Date Recorded Sex Assigned at Not on file Legal Sex Female 2:42 AM GAMES DEALER Gender Identity Not on file Sexual Orientation Not on file documented as of this encounter Plan of Treatment Not on file documented as of this encounter Visit Diagnoses Diagnosis Other specified noninflammatory disorder of vagina- Primary documented in this encounter Care Teams Showroom Salesperson Relationship Specialty Start Date End Date Mike Desouza MD [address] [phone] PCP - General 11/02/23 documented as of this encounter
--- OUTSIDE RECORDS SUMMARY | 2025-04-02 11:08 | XMS_ITS | Encounter Summary ---
Author Organization [employer] Address 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
--- OUTSIDE RECORDS SUMMARY | 2025-04-02 11:08 | XMS_ITS | Encounter Summary ---
Author Organization [employer] Address [address] [place] [address] Care Team Providers Care Commissions Manager Name Role Phone Mike Desouza MD Primary Care Provider +1 -[phone] Encounter Details Date Type Department Care Team (Latest Contact Info) Description 11/12/2001 Inpatient Historical [facility] PATIENT IN A BED [facility] Guillaume Godinez MD NO ADDRESS ON FILE FEM PELV INFLAM DIS NOS (Primary Dx) Social History Tobacco Use Types Packs/Day Years Used Date Smoking Tobacco: Never Assessed Comments Unknown Sex and Gender Information Value Date Recorded Sex Assigned at Not on file Legal Sex Female 2:42 AM 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
--- OUTSIDE RECORDS SUMMARY | 2025-04-02 11:08 | XMS_ITS | Encounter Summary ---
Author Organization [employer] Address [address] [place] [address] Care Team Providers Care Customer Service Professional Name Role Phone Mike Desouza MD Primary Care Provider +1 [phone] Encounter Details Date Type Department Care Team (Late st Contact Info) Description 12/17/2006 Outpatient Historical [facility] Kane Valderrama MD [address] [place] [address] Er, Authorized P NO ADDRESS ON FILE Abdominal Pain, Other Specified Site (Primary Dx) Social History Tobacco Use Types Packs/Day Years Used Date Smoking Tobacco: Never Assessed Comments Unknown Sex and Gender Information Value Date Recorded Sex Assigned at Not on file Legal Sex Female 2:42 AM 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 RADAR AND 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 Gender Identity Not on file Sexual Orientation Not on file documented as of this encounter Plan of Treatment Not on file documented as of this encounter Procedures Procedure Name Priority Date/Time Associated Diagnosis Comments CBC WITH DIFFERENTIAL Routine 12/17/2006 10:53 AM INSPECTOR RADAR AND ELECTRONICS CBC WITH DIFFERENTIAL Routine 12/17/2006 10:53 AM INSPECTOR RADAR AND ELECTRONICS DRUG SCREEN, URINE Routine 12/17/2006 10 :53 AM INSPECTOR RADAR AND ELECTRONICS C-REACTIVE PROTEIN Routine 12/17/2006 10 :53 AM INSPECTOR RADAR AND ELECTRONICS COMPREHENSIVE METABOLIC PANEL Routine 12/17/2006 10:53 AM INSPECTOR RADAR AND ELECTRONICS documented in this encounter Results * DRUG SCREEN, URINE (12/17/2006 10:53 AM INSPECTOR RADAR AND ELECTRONICS) COMMENT, TOXICOLOGY See Separate Comment INTERFACE SYSTEM [...] drugs of abuse are available on the [facility] [place] [place] Recruit.netet at: [email or web address] Select: Drugs of Abuse ? [facility] To inquire about any potential [...] INTE RFACE SYSTEM 12/17/2006 10:5 3 AM INSPECTOR RADAR AND ELECTRONICS us Kane Philip MD URINE ORDERABLES Edited INTERFACE SYSTEM Refer to clinic/hospital department * CBC WITH DIFFERENTIAL (12/17/2006 10:53 AM INSPECTOR RADAR AND ELECTRONICS) NEUTROPHILS 65 45 - 70 % INTERFAC [...] K/uL INTERFACE SYSTEM 12/17/2006 10:5 3 AM INSPECTOR RADAR AND ELECTRONICS Kane Philip MD HEMATOLOGY ORDERABLES Edited Performing Organization Address City/[facility] Phone Number INTERFACE SYSTEM Refer to clinic/hospital department * CBC WITH DIFFERENTIAL (12/17/2006 10:53 AM INSPECTOR RADAR AND ELECTRONICS) WBC 5.5 4.0 - 9.8 K/uL INTERFACE [...] fL INTERFACE SYSTEM 12/17/2006 10:5 3 AM INSPECTOR RADAR AND ELECTRONICS Kane Philip MD HEMATOLOGY ORDERABLES Edited Performing Organization Address [facility] de Phone Number INTERFACE SYSTEM Refer to clinic/hospital department * (ABNORMAL) C-REACTIVE PROTEIN (12/17/2006 10:53 AM INSPECTOR RADAR AND ELECTRONICS) CRP 2.7(H) 0.0 - 0.8 mg/dL INTERFACE SYSTEM 12/17/2006 10:5 3 AM INSPECTOR RADAR AND ELECTRONICS Kane Philip MD CHEMISTRY ORDERABLES Edited Performing Organization Address City/[facility]/ZIP Co de Phone Number INTERFACE SYSTEM Refer to clinic/hospital department * (ABNORMAL) COMPREHENSIVE METABOLIC PANEL (12/17/2006 10:53 AM INSPECTOR RADAR AND ELECTRONICS) GLUCOSE 73 65 - 99 mg/dL INTERFACE [...] on the [facility] Intranet at: [email or web address] Select: Lab Policies and Procedures Select: Reference Ranges - GFR 12/17/2006 10:5 3 AM INSPECTOR RADAR AND ELECTRONICS us Kane Philip MD CHEMISTRY ORDERABLES Edited INTERFACE SYSTEM Refer to clinic/hospital department documented in this encounter Visit Diagnoses Diagnosis Abdominal pain, other specified site- Primary documented in this encounter Care Teams Customer Service Professional Relationship Specialty Start Date End Date Mike Desouza MD [address] [place] [phone] PCP - General 11/02/23 documented as of this encounter
--- OUTSIDE RECORDS SUMMARY | 2025-04-02 11:08 | XMS_ITS | Encounter Summary ---
Author Organization [employer] Address 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
--- OUTSIDE RECORDS SUMMARY | 2025-04-02 11:08 | XMS_ITS | Clinical Summary ---
Author Organization [facility] Address [address] [place] [address] Care Team Providers Care Virtual Assistant Name Role Phone Mike Desouza MD Primary Care Provider [phone] Allergies Active Allergy Reactions Criticality Noted Date [...] CDT - 01/12/2025 11:30 AM CDT Emergency [facility] Emergency Department [address] [place] [id number] Anxiety attack (Primary Dx); Amphetamine overdose, accidental or unintentional, initial encounter ([facility]) Discharge Disposition: Home or Self Care 01/12/2025 [...] on file 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# [id number] [address] [place] [address] * (ABNORMAL) DRUG SCREEN, URINE (01/12/2025 9:25 AM CDT) [facility] AMPHETAMINE QUAL, URINE Presumptive Positive(A) Negative 01/12/2025 10:47 AM CDT [facility] BARBITURATE QUAL, URINE Negative Negative 01/12/2025 10:47 AM CDT [facility] BENZODIAZEPINE QUAL, URINE Negative Negative 01/12/2025 10:47 AM CDT [facility] COCAINE QUAL URINE Negative Negative 01/12/2025 10:47 AM CDT [facility] OPIATE QUAL, URINE Negative Negative 01/12/2025 10:47 AM CDT [facility] CANNABINOIDS QUAL, URINE Presumptive Positive(A) Negative 01/12/2025 10:47 AM CDT [facility] PCP QUAL, URINE Negative Negative 10:47 AM CDT [facility] OXYCODONE QUAL, URINE Negative Negative 01/12/2025 10:47 AM CDT [facility] METHADONE QUAL, URINE Negative Negative 01/12/2025 10:47 AM CDT [facility] FENTANYL QUAL, URINE Negative Negative 01/12/2025 10:47 AM CDT [facility] CREATININE, URINE 229.0(H) 29.0 - 226.0 mg/dL 01/12/2025 10:47 AM T [facility] Comment:Reference Range vari es with fluid intake and diet. Urine URINE SPECIMEN OBTAINED BY CLEAN CATCH PROCEDURE / Unknown Collection / Unknown 01/12/2025 9:25 AM CDT 01/12/2025 9:47 AM CDT [facility] - 01/12/2025 10:47 AM CDT This [...] Fentanyl Negative 5 ng/mL us Coleen Hendrickson VICE INVESTIGATOR URINE ORDERABLES Final Re sult [facility] - [facility] CLIA# [id number] [address] [place] [address] * EKG 12-LEAD (01/12/2025 9:12 AM CDT) 01/12/2025 9:12 AM CDT Narrative INTERFACE SYSTEM - 01/12/2025 9:[place] [address] Test Date: 2025-01-12 Pat Name: VANESSA BENSON Department: 91 Room: [address] [place] [address] Gender: Female Facilities Coordinator: KARISSA GARCIAB: 1975 Requested By: Order Number: [id number] Reading MD: Mervin Granado Measurements Intervals [place] Rate: 90 P: 81 MO: 156 QRS: 77 QRSD: 74 T: 85 QT: 350 QTc: 428 Interpretive Statements Normal sinus rhythm Biatrial enlargement Peaked T waves consider hyperkalemia or ischemia Abnormal ECG Compared to ECG 06/18/2019 11:47:31 Atrial abnormality now present Electronically Signed On 01-12-2025 9:46:57 CDT by Mervin Granado Procedure Note Mervin Granado MD - 01/12/[address] [address] Test Date: 2025-01-12 Pat Name: VANESSA BENSON Department: 91 Room: [address] [place] [address] Gender: Female Facilities Coordinator: KARISSA GARCIAB: 1975 Requested By: Order Number: [id number] Reading MD: Mervin Granado Measurements Intervals [place] Rate: 90 P: 81 MO: 156 QRS: 77 QRSD: 74 T: 85 QT: 350 QTc: 428 Interpretive Statements Normal sinus rhythm Biatrial enlargement Peaked T waves consider hyperkalemia or ischemia Abnormal ECG Compared to ECG 06/18/2019 11:47:31 Atrial abnormality now present Electronically Signed On 01-12-2025 9:46:57 CDT by Mervin Granado us Protocol [facility] MD ECG ORDERABLES Final Result INTERFACE SYSTEM Refer to clinic/hospital department from Last 3 Months Insurance [facility] MEDICAID [facility] MEDICAID Care Teams Virtual Assistant Relationship Specialty Start Date End Date Mike Desouza MD [address] [place] [address] [place] [address] [facility] - General 11/02/23
--- OUTSIDE RECORDS SUMMARY | 2025-04-02 11:08 | XMS_ITS | Encounter Summary ---
Author Organization [employer] Address 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
--- OUTSIDE RECORDS SUMMARY | 2025-04-02 11:08 | XMS_ITS | Encounter Summary ---
Author Organization [employer] Address [address] [place] [address] Care Team Providers Care Preschool Lead Teacher Name Role Phone Mike Desouza MD Primary Care Provider [phone] Encounter Details Date Type Department Care Team (Latest Contact Info) Description 09/13/2000 Outpatient Historical [facility] Guillaume Godinez MD NO ADDRESS ON FILE Unspecified ectopic (Primary Dx) Social History Tobacco Use Types Packs/Day Years Used Date Smoking Tobacco: Never Assessed Comments Unknown Sex and Gender Information Value Date Recorded Sex Assigned at Not on file Legal Sex Female 2:42 AM VISUAL AID EXPERT Gender Identity Not on file Sexual Orientation Not on file documented as of this encounter Plan of Treatment Not on file documented as of this encounter Visit Diagnoses Diagnosis Unspecified ectopic - Primary documented in this encounter Care Teams Preschool Lead Teacher Relationship Specialty Start Date End Date Mike Desouza MD [facility] [address] [place] [phone] PCP - General 11/02/23 documented as of this encounter
--- OUTSIDE RECORDS SUMMARY | 2025-04-02 11:08 | XMS_ITS | Referral Summary ---
Author Organization [facility] Address [address] [place] [address] Care Team Providers Care Quality Assurance Lead Name Role Phone Akbar Palacios MD Primary [...] on file Legal Sex Female 1:57 PM FURNACE LINER Gender Identity Not on file Sexual Orientation [...] Read Routine (OP Routine) 11/25/2022 10:32 AM FURNACE LINER Mass of right breast from Last 3 Months or Most Recently Relevant to Health Maintenance Results * Diagnostic Mammogram Bilateral [place] (11/25/2022 10:32 AM FURNACE LINER) Anatomical Region Laterality Modality Breast Bilateral Mammography 11/25/2022 11:0 1 AM FURNACE LINER Impressions 11/25/2022 11:29 AM FURNACE LINER 1. No mammographic or sonographic correlate to [...] Annette Yost M.D. Narrative 11/25/2022 11:29 AM FURNACE LINER EXAMINATION: BILATERAL DIGITAL DIAGNOSTIC MAMMOGRAM INCLUDING CAD [...] Most Recently Relevant to Health Maintenance Insurance [facility] [place] [id number] Care Teams Quality Assurance Lead Relationship Specialty Start Date End Date Akbar Palacios MD PCP - General Family Medicine 11/18/22
--- OUTSIDE RECORDS SUMMARY | 2025-04-02 11:08 | XMS_ITS | Clinical Summary ---
Author Organization [facility] Address [address] [place] [address] Phone Care Team Providers Care Shipwright Apprentice Name Role Phone Siomara Desouza MD Primary Care Provider [phone] Allergies Active Allergy Reactions Criticality Noted Date [...] this topic Insurance [place]ICAID [place] Care Teams Shipwright Apprentice Relationship Specialty Start Date End Date Siomara Desouza MD [address] [facility] [address] [place] [address] PCP - General Family Medicine 07/02/23
--- OUTSIDE RECORDS SUMMARY | 2025-04-02 11:08 | XMS_ITS | Clinical Summary ---
Author Organization [facility] Address [address] [place] [address] Care Team Providers Care Meat Packager Name Role Phone Akbar Palacios MD Primary [...] on file Legal Sex Female 1:57 PM CLARIFYING PLANT OPERATOR Gender Identity Not on file Sexual [...] Read Routine (OP Routine) 11/25/2022 10:32 AM CLARIFYING PLANT OPERATOR Mass of right breast from Last 3 Months or Most Recently Relevant to Health Maintenance Results * Diagnostic Mammogram Bilateral [place] (11/25/2022 10:32 AM CLARIFYING PLANT OPERATOR) Anatomical Region Laterality Modality Breast Bilateral Mammography 11/25/2022 11:0 1 AM CLARIFYING PLANT OPERATOR Impressions 11/25/2022 11:29 AM CLARIFYING PLANT OPERATOR 1. No mammographic or sonographic correlate [...] Annette Yost M.D. Narrative 11/25/2022 11:29 AM CLARIFYING PLANT OPERATOR EXAMINATION: BILATERAL DIGITAL DIAGNOSTIC MAMMOGRAM INCLUDING [...] Most Recently Relevant to Health Maintenance Insurance [facility] Member Subscriber Plan / Payer (Ef fective 2021-Present) Name:Vanessa BENSON Relation to Subscriber:Self Name:Vanessa BENSON Payer ID:[id number] (NAIC) Group ID:Not on file Type:MEDICAID RISK OTHER Address: [place] [id number] [facility] Care Teams Meat Packager Relationship Specialty Start Date End Date Akbar Palacios MD PCP - General Family Medicine 11/18/22
--- OUTSIDE RECORDS SUMMARY | 2025-04-02 11:08 | XMS_ITS | Encounter Summary ---
Author Organization [employer] Address [address] [place] [address] Care Team Providers Care Wharfinger Chief Name Role Phone Mike Desouza MD Primary Care Provider [phone] Encounter Details Date Type Department Care Team (Latest Contact Info) Description 12/13/1998 Outpatient Historical [facility] PATIENT IN A BED Mya Morgan MD [address] [facility] [address] [place] [address] Guillaume Godinez MD NO ADDRESS ON FILE Other current maternal conditions classifiable elsewhere, antepartum (Primary Dx) Social History Tobacco Use Types Packs/Day Years Used Date Smoking Tobacco: Never Assessed Comments Unknown Sex and Gender Information Value Date Recorded Sex Assigned at Not on file Legal Sex Female 2:42 AM EDGER OPERATOR Gender Identity Not on file Sexual Orientation Not on file documented as of this encounter Plan of Treatment Not on file documented as of this encounter Visit Diagnoses Diagnosis Other current maternal conditions classifiable elsewhere, antepartum- Primary documented in this encounter Care Teams Wharfinger Chief Relationship Specialty Start Date End Date Mike Desouza MD [address] [place] [address] [place] [address] PCP - General 11/02/23 documented as of this encounter
--- OUTSIDE RECORDS SUMMARY | 2025-04-02 11:08 | XMS_ITS | Encounter Summary ---
Author Organization [employer] Address [address] [place] [address] Care Team Providers Care Lean Coach Name Role Phone Mike Desouza MD Primary Care Provider [phone] Encounter Details Date Type Department Care Team (Latest Contact Info) Description 11/28/1998 Outpatient Historical [facility]PAT[facility] Guillaume Godinez MD NO ADDRESS ON FILE Cervicitis and endocervicitis (Primary Dx) Social History Tobacco Use Types Packs/Day Years Used Date Smoking Tobacco: Never Assessed Comments Unknown Sex and Gender Information Value Date Recorded Sex Assigned at Not on file Legal Sex Female 2:42 AM IN FILE OPERATOR Gender Identity Not on file Sexual Orientation Not on file documented as of this encounter Plan of Treatment Not on file documented as of this encounter Visit Diagnoses Diagnosis Cervicitis and endocervicitis- Primary documented in this encounter Care Teams Lean Coach Relationship Specialty Start Date End Date Mike Desouza MD [facility] [address] [place] [address] PCP - General 11/02/23 documented as of this encounter
--- OUTSIDE RECORDS SUMMARY | 2025-04-02 11:08 | XMS_ITS | Encounter Summary ---
Author Organization [facility] Address 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 IM[facility]ING SERVICES Ordering Prov: N/A Accession Number: [id number] Interpretation Computed tomography examination of the abdomen [...] Procedure Note Briana Gallo MD - 04/29/2009 [place] [address] [place], [place] [address] Admit Date: 04/28/2009 DENIA RAY Sex: F Admit Prov: AUDRA CADET Date: 1975 Primary Care Prov: PCP, NONE CMRN: [id number] Room: ER-A SSN: [id number] IMAGING SERVICES Ordering Prov: N/A Interpretation Computed [...] PM CDT) CLARITY UA Slt. Cloudy(A) Clear [facility] BILIRUBIN UA Negative Negative [facility] PROTEIN UA Negative Negative [facility] LEUKOCYTE ESTERASE UA Negative Negative [facility] RBC UA >100(H) 0 - 4 /HPF [facility] SPECIFIC GRAVITY UA 1.014 1.001 - 1.035 [facility] GLUCOSE UA Negative Negative [facility] BLOOD UA 3+(A) Negative [facility] COLOR UA Yellow [facility] NITRITE UA Negative Negative [facility] EPITHELIAL CELLS, URINE 2-5 /HPF [facility] UROBILINOGEN UA <1 <=1 mg/dL [facility] PH UA 5.5 5.0 - 8.0 [facility] WBC UA 4 0 - 5 /HPF [facility] KETONES UA Negative Negative [facility] 04/28/2009 3:55 PM CDT 04/28/2009 4:23 PM CDT us Authorized P Er URINE ORDERABLES Final Result Performing Organization Address [facility] Phone Number INTERFACE SYSTEM Refer to clinic/hospital department [facility] CLIA# [id number] [address] [place] [address] * (ABNORMAL) LIPASE (04/28/2009 3:20 PM CDT) LIPASE 12(L) 13 - 60 U/L [facility] 04/28/2009 3:20 PM CDT 04/28/2009 4:37 PM CDT us Authorized P Er CHEMISTRY ORDERABLES Final Resul t Performing Organization Address [facility] Phone Number INTERFACE SYSTEM Refer to clinic/hospital department [facility] CLIA# [id number] [address] [place] [address] * C-REACTIVE PROTEIN (04/28/2009 3:20 PM CDT) CRP 0.3 0.0 - 0.8 mg/dL [facility] 04/28/2009 3:20 PM CDT 04/28/2009 4:37 PM CDT us Authorized P Er CHEMISTRY ORDERABLES Final Resul t Performing Organization Address [facility] Phone Number INTERFACE SYSTEM Refer to clinic/hospital department [facility] CLIA# [id number] [address] [facility] [place], [place] [address] * (ABNORMAL) CBC WITH DIFFERENTIAL (04/28/2009 3:20 PM CDT) WBC 4.1 4.0 - 9.8 K/uL [facility] MCH 29.4 27.2 - 32.6 pg [facility] MPV 9.5 9.3 - 12.4 fL [facility] HEMATOCRIT 34.6(L) 35.5 - 44.0 % [facility] RDW-STDEV 41.4 37.1 - 48.7 fL [facility] RBC 3.84(L) 3.90 - 4.90 M/uL [facility] MCHC 32.7 31.5 - 35.5 % [facility] MCV 90.1 82.0 - 99.0 fL [facility] PLATELETS 242 140 - 350 K/uL [facility] HEMOGLOBIN 11.3(L) 11.8 - 14.8 g/dL [facility] RDW 12.8 11.5 - 14.5 % [facility] BASOPHILS 1 0 - 2 % [facility] BASOPHILS ABSOLUTE 0.02 0.00 - 0.20 K/uL [facility] MONOCYTES 7 3 - 13 % [facility] MONOCYTE ABSOLUTE 0.29 0.10 - 1.30 K/uL [facility] NEUTROPHILS 59 45 - 70 % [facility] NEUTROPHIL ABSOLUTE 2.44 1.90 - 7.00 K/uL [facility] EOSINOPHILS 5 0 - 7 % [facility] EOSINOPHIL ABSOLUTE 0.22 0.00 - 0.70 K/uL [facility] LYMPHOCYTES 28 16 - 45 % [facility] LYMPHOCYTE ABSOLUTE 1.15 0.70 - 4.50 K/uL [facility] 04/28/2009 3:20 PM CDT 04/28/2009 3:31 PM CDT us Authorized P Er HEMATOLOGY ORDERABLES Edited INTERFACE SYSTEM Refer to clinic/hospital department [facility] CLIA# [id number] [address] [place] [address] * COMPREHENSIVE METABOLIC PANEL (04/28/2009 3:20 PM CDT) SODIUM 136 135 - 145 mmol/L [facility] ALT 14 0 - 31 U/L [facility] ALKALINE PHOSPHATASE 69 35 - 104 U/L [facility] BILIRUBIN TOTAL 0.3 0.2 - 1.0 mg/dL [facility] CO2 24 22 - 30 mmol/L [facility] CREATININE 0.58 0.51 - 0.95 mg/dL [facility] TOTAL PROTEIN 6.6 6.3 - 8.6 g/dL [facility] POTASSIUM 3.6 3.5 - 4.9 mmol/L [facility] AST 18 12 - 32 U/L [facility] BUN 6 6 - 20 mg/dL [facility] CALCIUM 9.1 8.6 - 10.2 mg/dL [facility] CHLORIDE 104 96 - 108 mmol/L [facility] GLUCOSE 89 65 - 99 mg/dL [facility] ALBUMIN 4.0 3.4 - 4.8 g/dL [facility] GFR, >60 >=60 mL/min/1.7 sq meter [facility] GFR >60 >=60 mL/min/1.7 sq meter [facility] Comment: Modification of Diet in Renal Disease (MDRD) study formula. Estimated GFR rate interpretative information for both Americans and non- Americans is available on the [facility] Intranet at: [email or web address] Select: Lab Policies and Procedures Select: Reference Ranges - GFR 04/28/2009 3:20 PM CDT 04/28/2009 3:31 PM CDT us Authorized P Er CHEMISTRY ORDERABLES Edited INTERFACE SYSTEM Refer to clinic/hospital department [facility] CLIA# [id number] [address] [place] [address] documented in this encounter Visit Diagnoses Diagnosis Abdominal pain, right upper quadrant Other acute pain Nausea with vomiting Diarrhea Hematuria, unspecified Tobacco use disorder documented in this encounter Care Teams Feeder Operator Automatic Relationship Specialty Start Date End Date Mike Desouza MD [address] [facility] [place] [id number] PCP - General 11/02/23 documented as of this encounter
--- OUTSIDE RECORDS SUMMARY | 2025-04-02 11:08 | XMS_ITS | Encounter Summary ---
Author Organization [employer] Address [address] [place] [address] Care Team Providers Care Manufacturing Engineering Professor Name Role Phone Mike Desouza MD Primary Care Provider [phone] Encounter Details Date Type Department Care Team (Late st Contact Info) Description 10/10/2008 Outpatient Historical [facility] WASH Er, Authorized P NO ADDRESS ON FILE Dustin Gallardo MD [address] [place] [address] [place] [address] Abdominal Pain, Other Specified Site; Tobacco Use Disorder Social History Tobacco Use Types Packs/Day Years Used Date Smoking Tobacco: Never Assessed Comments Unknown Sex and Gender Information Value Date Recorded Sex Assigned at Not on file Legal Sex Female 2:42 AM TAG PRESS OPERATOR Gender Identity Not on file Sexual Orientation Not on file documented as of this encounter Plan of Treatment Not on file documented as of this encounter Procedures Procedure Name Priority Date/Time Associated Diagnosis Comments CT ABDOMEN PELVIS WO CONTRAST Stat 10/10/2008 12:42 PM TAG PRESS OPERATOR CBC WITH DIFFERENTIAL Stat 10/10/2008 10:50 AM TAG PRESS OPERATOR BASIC METABOLIC PANEL Stat 10/10/2008 10:50 AM TAG PRESS OPERATOR URINALYSIS WITH REFLEX CULTURE Stat 10/10/2008 10:45 AM TAG PRESS OPERATOR URINALYSIS W/REFLEX MICROSCOPIC Stat 10/10/2008 10:45 AM TAG PRESS OPERATOR URINE CULTURE Stat 10/10/2008 10:45 AM TAG PRESS OPERATOR documented in this encounter Results * CT ABDOMEN PELVIS WO CONTRAST (10/10/2008 12:42 PM TAG PRESS OPERATOR) Anatomical Region Laterality Modality Abdomen Other 10/10/2008 12:4 2 PM TAG PRESS OPERATOR Narrative 10/10/2008 1:06 PM TAG PRESS OPERATOR [address] [address] Admit Date: 10/10/2008 VANESSA RAY Sex: F Admit Prov: ER, AUTHORIZED P Date: 1975 Primary Care Prov: PCP , NONE CMRN: [id number] Room: ER-B SSN: [id number] IMAGING SERVICES Ordering Prov: N/A Accession Number: [id number] Interpretation CT ABDOMEN AND PELVIS WITHOUT CONTRAST, [...] Procedure Note Brennen Trinidad DO - 10/10/[address] [address] Admit Date: 10/10/2008 VANESSA RAY Sex: F Admit Prov: ER, AUTHORIZED P Date: 1975 Primary Care Prov: PCP , NONE CMRN: [id number] Room: ER-B SSN: [id number] IMAGING SERVICES Ordering Prov: N/A Interpretation CT [...] * CBC WITH DIFFERENTIAL (10/10/2008 10:50 AM TAG PRESS OPERATOR) RDW-STDEV 41.4 37.1 - 48.7 fL [facility] RBC 4.57 3.90 - 4.90 M/uL [facility] MCHC 33.7 31.5 - 35.5 % [facility] PLATELETS 272 140 - 350 K/uL [facility] MCV 91.0 82.0 - 99.0 fL [facility] HEMOGLOBIN 14.0 11.8 - 14.8 g/dL [facility] RDW 12.5 11.5 - 14.5 % [facility] WBC 4.1 4.0 - 9.8 K/uL [facility] MCH 30.6 27.2 - 32.6 pg [facility] MPV 9.7 9.3 - 12.4 fL [facility] HEMATOCRIT 41.6 35.5 - 44.0 % [facility] BASOPHILS 1 0 - 2 % [facility] BASOPHILS ABSOLUTE 0.03 0.00 - 0.20 K/uL [facility] MONOCYTES 13 3 - 13 % [facility] MONOCYTE ABSOLUTE 0.52 0.10 - 1.30 K/uL [facility] NEUTROPHILS 55 45 - 70 % [facility] NEUTROPHIL ABSOLUTE 2.24 1.90 - 7.00 K/uL [facility] EOSINOPHILS 6 0 - 7 % [facility] EOSINOPHIL ABSOLUTE 0.23 0.00 - 0.70 K/uL [facility] LYMPHOCYTES 27 16 - 45 % [facility] LYMPHOCYTE ABSOLUTE 1.09 0.70 - 4.50 K/uL [facility] Blood specimen (specimen) 10/10/2008 10:50 AM TAG PRESS OPERATOR 10/10/2008 11:16 AM TAG PRESS OPERATOR us Dustin Gallardo MD HEMATOLOGY ORDERABLES Edited INTERFACE SYSTEM Refer to clinic/hospital department [facility] CLIA# [id number] [address] [place] [address] * BASIC METABOLIC PANEL (10/10/2008 10:50 AM TAG PRESS OPERATOR) BUN 19 6 - 20 mg/dL [facility] CHLORIDE 102 96 - 108 mmol/L [facility] SODIUM 136 135 - 145 mmol/L [facility] CREATININE 0.58 0.51 - 0.95 mg/dL [facility] CO2 25 22 - 30 mmol/L [facility] CALCIUM 9.8 8.6 - 10.2 mg/dL [facility] POTASSIUM 3.8 3.5 - 4.9 mmol/L [facility] GLUCOSE 96 65 - 99 mg/dL [facility] GFR, >60 >=60 mL/min/1.7 sq meter [facility] GFR >60 >=60 mL/min/1.7 sq meter [facility] Comment: Modification of Diet in Renal Disease (MDRD) study formula. Estimated GFR rate interpretative information for both Americans and non- Americans is available on the [facility] Intranet at: [email or web address] Select: Lab Policies and Procedures Select: Reference Ranges - GFR Blood specimen (specimen) 10/10/2008 10:50 AM TAG PRESS OPERATOR 10/10/2008 11:16 AM TAG PRESS OPERATOR us Dustin Gallardo MD CHEMISTRY ORDERABLES Edited Performing Organization Address [facility] de Phone Number INTERFACE SYSTEM Refer to clinic/hospital department [facility] CLIA# [id number] [address] [place] [address] * URINE CULTURE (10/10/2008 10:45 AM TAG PRESS OPERATOR) PRELIMINARY REPORT Pending [facility] FINAL REPORT 10-50,000 colonies/mL Polymicrobial growth consistent with normal urethral anay [facility] 10/10/2008 10:4 5 AM TAG PRESS OPERATOR 10/10/2008 11:51 AM TAG PRESS OPERATOR us Dustin Gallardo MD MICROBIOLOGY - GENERAL ORDER DAYANARA Final Result Performing Organization Address [facility] Phone Number INTERFACE SYSTEM Refer to clinic/hospital department [facility] CLIA# [id number] [address] [place] [address] * (ABNORMAL) URINALYSIS (10/10/2008 10:45 AM TAG PRESS OPERATOR) CLARITY UA Slt. Cloudy(A) Clear [facility] BLOOD UA 4+(A) Negative [facility] PROTEIN UA Negative Negative [facility] LEUKOCYTE ESTERASE UA Negative Negative [facility] UROBILINOGEN UA <1 <1 mg/dL [facility] SPECIFIC GRAVITY UA 1.015 1.001 - 1.035 [facility] GLUCOSE UA Negative Negative [facility] COLOR UA Yellow [facility] NITRITE UA Negative Negative [facility] BILIRUBIN UA Negative Negative [facility] PH UA 7.0 5.0 - 8.0 [facility] KETONES UA Negative Negative [facility] EPITHELIAL CELLS, URINE 5-10 /HPF [facility] RBC UA Many(A) 0 - 2 /HPF [facility] BACTERIA UA Trace None Seen /HPF [facility] WBC UA 0-5 0 - 5 /HPF [facility] 10/10/2008 10:4 5 AM TAG PRESS OPERATOR 10/10/2008 11:16 AM TAG PRESS OPERATOR Dustin Gallardo MD URINE ORDERABLES Edited Performing Organization Address [facility] Phone Number INTERFACE SYSTEM Refer to clinic/hospital department [facility] CLIA# [id number] [address] [place] [address] * URINALYSIS WITH REFLEX CULTURE (10/10/2008 10:45 AM TAG PRESS OPERATOR) URINE CULTURE ORDER Culture ordered [facility] Comment: Criteria for a reflex culture include one or more of the following: Abnormal WBCs, RBCs or bacteria. Lack of qualifying criteria does not exclude the possibility of a urinary tract infection. Dilute urine, drug interference, etc. may decrease the sensitivity of the criteria analytes. Urine specimen (specimen) 10/10/2008 10:45 AM TAG PRESS OPERATOR 10/10/2008 11:16 AM TAG PRESS OPERATOR Dustin Gallardo MD URINE ORDERABLES Final Resul t Performing Organization Address [facility] Phone Number INTERFACE SYSTEM Refer to clinic/hospital department [facility] CLIA# [id number] [address] [place] [address] documented in this encounter Visit Diagnoses Diagnosis Abdominal pain, other specified site Tobacco use disorder documented in this encounter Care Teams Manufacturing Engineering Professor Relationship Specialty Start Date End Date Mike Desouza MD [address] [place] [address] PCP - General 11/02/23 documented as of this encounter
--- OUTSIDE RECORDS SUMMARY | 2025-04-02 11:08 | XMS_ITS | Encounter Summary ---
Author Organization [employer] Address [address] [place] [address] Care Team Providers Care Classification Analyst Name Role Phone Mike Desouza MD Primary Care Provider [phone] Encounter Details Date Type Department Care Team (Late st Contact Info) Description 10/13/2008 Outpatient Historical [facility] EM[facility] RO[facility] WASH Er, Authorized P NO ADDRESS ON FILE Ervin Alvarenga MD [address] [place] [address] Abdominal Pain, Other Specified Site; Hematuria, Unspecified Social History Tobacco Use Types Packs/Day Years Used Date Smoking Tobacco: Never Assessed Comments Unknown Sex and Gender Information Value Date Recorded Sex Assigned at Not on file Legal Sex Female 2:42 AM SUPERVISOR FUNCTIONAL TESTING Gender Identity Not on file Sexual Orientation Not on file documented as of this encounter Plan of Treatment Not on file documented as of this encounter Procedures Procedure Name Priority Date/Time Associated Diagnosis Comments CT ABDOMEN PELVIS WO CONTRAST Stat 10/13/2008 8:20 PM SUPERVISOR FUNCTIONAL TESTING CBC WITH DIFFERENTIAL Stat 10/13/2008 7:00 PM SUPERVISOR FUNCTIONAL TESTING LIPASE Stat 10/13/2008 7:00 PM SUPERVISOR FUNCTIONAL TESTING HEPATIC FUNCTION PANEL Stat 10/13/2008 7:00 PM SUPERVISOR FUNCTIONAL TESTING BASIC METABOLIC PANEL Stat 10/13/2008 7:00 PM SUPERVISOR FUNCTIONAL TESTING URINALYSIS WITH REFLEX CULTURE Stat 10/13/2008 6:40 PM SUPERVISOR FUNCTIONAL TESTING URINALYSIS W/REFLEX MICROSCOPIC Stat 10/13/2008 6:40 PM SUPERVISOR FUNCTIONAL TESTING URINE CULTURE Stat 10/13/2008 6:40 PM SUPERVISOR FUNCTIONAL TESTING documented in this encounter Results * CT ABDOMEN PELVIS WO CONTRAST (10/13/2008 8:20 PM SUPERVISOR FUNCTIONAL TESTING) Anatomical Region Laterality Modality Abdomen Other 10/13/2008 8:20 PM SUPERVISOR FUNCTIONAL TESTING Narrative 10/13/2008 8:56 PM SUPERVISOR FUNCTIONAL TESTING [address] [address] Admit Date: 10/13/2008 VANESSA RAY Sex: F Admit Prov: ER, AUTHORIZED P Date: 1975 Primary Care Prov: PCP , NONE CMRN: [id number] Room: ER-B SSN: [id number] IMAGING SERVICES Ordering Prov: N/A Accession Number: [id number] Interpretation CT SCAN OF THE ABDOMEN AND [...] Procedure Note Kathy Camarena MD - 10/13/2008 [facility] [address] [place] [address] Admit Date: 10/13/2008 VANESSA RAY Sex: F Admit Prov: ER, AUTHORIZED P Date: 1975 Primary Care Prov: PCP , NONE CMRN: [id number] [facility] SS[facility]: [id number] IMAGING SERVICES Ordering Prov: N/A Interpretation CT [...] * HEPATIC FUNCTION PANEL (10/13/2008 7:00 PM SUPERVISOR FUNCTIONAL TESTING) TOTAL PROTEIN 7.9 6.0 - 8.3 g/dL [facility] BILIRUBIN TOTAL 0.4 0.2 - 1.0 mg/dL [facility] ALT 17 0 - 31 U/L [facility] AST 16 12 - 32 U/L [facility] BILIRUBIN DIRECT <0.2 0.0 - 0.3 mg/dL [facility] ALBUMIN 4.8 3.4 - 4.8 g/dL [facility] ALKALINE PHOSPHATASE 69 35 - 104 U/L [facility] Blood specimen (specimen) 10/13/2008 7:00 PM SUPERVISOR FUNCTIONAL TESTING 10/13/2008 7:14 PM SUPERVISOR FUNCTIONAL TESTING Ervin Alvarenga MD CHEMISTRY ORDERABLES Final Res ult Performing Organization Address [facility] de Phone Number INTERFACE SYSTEM Refer to clinic/hospital department [facility] CLIA# [id number] [address] [place] [address] * LIPASE (10/13/2008 7:00 PM SUPERVISOR FUNCTIONAL TESTING) LIPASE 15 13 - 60 U/L [facility] Blood specimen (specimen) 10/13/2008 7:00 PM SUPERVISOR FUNCTIONAL TESTING 10/13/2008 7:14 PM SUPERVISOR FUNCTIONAL TESTING us Ervin Alvarenga MD CHEMISTRY ORDERABLES Final Res ult Performing Organization Address [facility] de Phone Number INTERFACE SYSTEM Refer to clinic/hospital department [facility] CLIA# [id number] [address] [place] [address] * CBC WITH DIFFERENTIAL (10/13/2008 7:00 PM SUPERVISOR FUNCTIONAL TESTING) MPV 9.4 9.3 - 12.4 fL [facility] HEMATOCRIT 39.1 35.5 - 44.0 % [facility] RDW-STDEV 39.4 37.1 - 48.7 fL [facility] RBC 4.38 3.90 - 4.90 M/uL [facility] MCHC 34.3 31.5 - 35.5 % [facility] PLATELETS 295 140 - 350 K/uL [facility] MCV 89.3 82.0 - 99.0 fL [facility] HEMOGLOBIN 13.4 11.8 - 14.8 g/dL [facility] RDW 12.2 11.5 - 14.5 % [facility] WBC 6.0 4.0 - 9.8 K/uL [facility] MCH 30.6 27.2 - 32.6 pg [facility] EOSINOPHILS 1 0 - 7 % [facility] EOSINOPHIL ABSOLUTE 0.05 0.00 - 0.70 K/uL [facility] LYMPHOCYTES 26 16 - 45 % [facility] LYMPHOCYTE ABSOLUTE 1.54 0.70 - 4.50 K/uL [facility] BASOPHILS 1 0 - 2 % [facility] BASOPHILS ABSOLUTE 0.03 0.00 - 0.20 K/uL [facility] MONOCYTES 8 3 - 13 % [facility] MONOCYTE ABSOLUTE 0.47 0.10 - 1.30 K/uL [facility] NEUTROPHILS 65 45 - 70 % [facility] NEUTROPHIL ABSOLUTE 3.88 1.90 - 7.00 K/uL [facility] Blood specimen (specimen) 10/13/2008 7:00 PM SUPERVISOR FUNCTIONAL TESTING 10/13/2008 7:14 PM SUPERVISOR FUNCTIONAL TESTING us Ervin Alvarenga MD HEMATOLOGY ORDERABLES Edited INTERFACE SYSTEM Refer to clinic/hospital department [facility] CLIA# [id number] [address] [place] [address] * (ABNORMAL) BASIC METABOLIC PANEL (10/13/2008 7:00 PM SUPERVISOR FUNCTIONAL TESTING) POTASSIUM 3.3(L) 3.5 - 4.9 mmol/L [facility] GLUCOSE 89 65 - 99 mg/dL [facility] BUN 17 6 - 20 mg/dL [facility] CREATININE 0.59 0.51 - 0.95 mg/dL [facility] CHLORIDE 101 96 - 108 mmol/L [facility] SODIUM 137 135 - 145 mmol/L [facility] CO2 25 22 - 30 mmol/L [facility] CALCIUM 9.8 8.6 - 10.2 mg/dL [facility] GFR, >60 >=60 mL/min/1. 7 sq meter [facility] GFR >60 >=60 mL/min/1. 7 sq meter [facility] Comment: Modification of Diet in Renal Disease (MDRD) study formula. Estimated GFR rate interpretative information for both Americans and non- Americans is available on the [facility] [place] Intranet at: [email or web address] Select: Lab Policies and Procedures Select: Reference Ranges - GFR Blood specimen (specimen) 10/13/2008 7:00 PM SUPERVISOR FUNCTIONAL TESTING 10/13/2008 7:14 PM SUPERVISOR FUNCTIONAL TESTING us Ervin Alvarenga MD CHEMISTRY ORDERABLES Edited Performing Organization Address [facility] de Phone Number INTERFACE SYSTEM Refer to clinic/hospital department [facility] CLIA# [id number] [address] [place] [address] * URINE CULTURE (10/13/2008 6:40 PM SUPERVISOR FUNCTIONAL TESTING) PRELIMINARY REPORT Pending [facility] FINAL REPORT No growth [facility] 10/13/2008 6:40 PM SUPERVISOR FUNCTIONAL TESTING 10/13/2008 7:33 PM SUPERVISOR FUNCTIONAL TESTING us Ervin Alvarenga MD MICROBIOLOGY - GENERAL ORDERAB LES Final Result Performing Organization Address [facility] de Phone Number INTERFACE SYSTEM Refer to clinic/hospital department [facility] CLIA# [id number] [address] [place] [address] * (ABNORMAL) URINALYSIS (10/13/2008 6:40 PM SUPERVISOR FUNCTIONAL TESTING) KETONES UA 2+(A) Negative [facility] CLARITY UA Cloudy(A) Clear [facility] BLOOD UA 4+(A) Negative [facility] PROTEIN UA 1+(A) Negative [facility] LEUKOCYTE ESTERASE UA Negative Negative [facility] UROBILINOGEN UA <1 <1 mg/dL [facility] SPECIFIC GRAVITY UA 1.025 1.001 - 1.035 [facility] GLUCOSE UA Negative Negative [facility] COLOR UA Yellow [facility] NITRITE UA Negative Negative [facility] BILIRUBIN UA Negative Negative [facility] PH UA 5.0 5.0 - 8.0 [facility] RBC UA Many(A) 0 - 2 /HPF [facility] MUCOUS, URINE 1+ [facility] BACTERIA UA Trace None Seen /HPF [facility] WBC UA 0-5 0 - 5 /HPF [facility] EPITHELIAL CELLS, URINE 2-5 /HPF [facility] 10/13/2008 6:40 PM SUPERVISOR FUNCTIONAL TESTING 10/13/2008 7:14 PM SUPERVISOR FUNCTIONAL TESTING us Ervin Alvarenga MD URINE ORDERABLES Edited INTERFACE SYSTEM Refer to clinic/hospital department [facility] CLIA# [id number] [address] [place] [address] * URINALYSIS WITH REFLEX CULTURE (10/13/2008 6:40 PM SUPERVISOR FUNCTIONAL TESTING) URINE CULTURE ORDER Culture ordered [facility] Comment: Criteria for a reflex culture include one or more of the following: Abnormal WBCs, RBCs or bacteria. Lack of qualifying criteria does not exclude the possibility of a urinary tract infection. Dilute urine, drug interference, etc. may decrease the sensitivity of the criteria analytes. Urine specimen (specimen) 10/13/2008 6:40 PM SUPERVISOR FUNCTIONAL TESTING 10/13/2008 7:14 PM SUPERVISOR FUNCTIONAL TESTING us Ervin Alvarenga MD URINE ORDERABLES Final Result INTERFACE SYSTEM Refer to clinic/hospital department [facility] CLIA# [id number] [address] [place] [address] documented in this encounter Visit Diagnoses Diagnosis Abdominal pain, other specified site Hematuria, unspecified documented in this encounter Care Teams Classification Analyst Relationship Specialty Start Date End Date Mike Desouza MD [address] [place] [address] PCP - General 11/02/23 documented as of this encounter
--- OUTSIDE RECORDS SUMMARY | 2025-04-02 11:08 | XMS_ITS | Encounter Summary ---
Author Organization [employer] Address [address] [place] [address] Care Team Providers Care Extension Educator Name Role Phone Mike Desouza MD Primary Care Provider [phone] Encounter Details Date Type Department Care Team [...] on file Legal Sex Female 2:[address] LOCKSMITH Gender Identity Not on file Sexual Orientation Not on file documented as of this encounter Plan of Treatment Not on file documented as of this encounter Visit Diagnoses Diagnosis Urinary tract infection, site not specified- Primary documented in this encounter Care Teams Extension Educator Relationship Specialty Start Date End Date Mike Desouza MD [address] [place] [address] [place] [address] PCP - General 11/02/23 documented as of this encounter
--- OUTSIDE RECORDS SUMMARY | 2025-04-02 11:08 | XMS_ITS | Encounter Summary ---
Author Organization [employer] Address [address] [place] [address] Care Team Providers Care Anodiser Name Role Phone Mike Desouza MD Primary Care Provider [phone] Encounter Details Date Type Department Care Team [...] on file Legal Sex Female 2:42 AM DOCUMENTATION LEAD Gender Identity Not on file Sexual Orientation Not on file documented as of this encounter Plan of Treatment Not on file documented as of this encounter Visit Diagnoses Diagnosis Unspecified symptom associated with female genital organs- Primary documented in this encounter Care Teams Anodiser Relationship Specialty Start Date End Date Mike Desouza MD [address] [place] [address] [place] [address] PCP - General 11/02/23 documented as of this encounter
--- OUTSIDE RECORDS SUMMARY | 2025-04-02 11:08 | XMS_ITS | Encounter Summary ---
Author Organization [employer] Address [address] [place] [address] Care Team Providers Care Maintenance Shop Clerk Name Role Phone Mike Desouza MD Primary Care Provider [phone] Encounter Details Date Type Department Care Team (Late st Contact Info) Description 06/22/2008 Outpatient Historical [facility] W[facility] Er, Authorized P NO ADDRESS ON FILE Nikolai Leblanc MD [address] [facility] [place] [address] Social History Tobacco Use Types Packs/Day Years Used Date Smoking Tobacco: Never Assessed Comments Unknown Sex and Gender Information Value Date Recorded Sex Assigned at Not on file Legal Sex Female 2:42 AM [employer]PERVISOR Gender Identity Not on file Sexual Orientation [...] (06/22/2008 4:18 AM CDT) PRELIMINARY REPORT Pending [facility] FINAL REPORT 10-50,000 colonies/mL Polymicrobial growth consistent with normal urethral anay [facility] 06/22/2008 4:18 AM CDT 06/22/2008 5:00 AM CDT us Nikolai Leblanc MD MICROBIOLOGY - GENERAL [place] [facility] Final Result INTERFACE SYSTEM Refer to clinic/hospital department [facility] CLIA# [id number] [address] [place] [address] * (ABNORMAL) URINALYSIS (06/22/2008 4:18 AM CDT) Pathologist [facility] KETONES UA Negative Negative [facility] CLARITY UA Cloudy(A) Clear [facility] NITRITE UA Negative Negative [facility] BLOOD UA 4+(A) Negative [facility] LEUKOCYTE ESTERASE UA Trace(A) Negative [facility] SPECIFIC GRAVITY UA 1.020 1.001 - 1.035 [facility] UROBILINOGEN UA <1 <1 mg/dL [facility] PROTEIN UA 1+(A) Negative [facility] COLOR UA Yellow [facility] GLUCOSE UA Negative Negative [facility] BILIRUBIN UA Negative Negative [facility] PH UA 5.0 5.0 - 8.0 [facility] WBC UA 0-5 0 - 5 /HPF [facility] BACTERIA UA Trace None Seen /HPF [facility] AMORPHOUS URATES, URINE Many /HPF [facility] RBC UA 25-50(A) 0 - 2 /HPF [facility] 06/22/2008 4:18 AM CDT 06/22/2008 4:25 AM CDT Nikolai Leblanc MD URINE ORDERABLES Edited Performing Organization Address [facility] Phone Number INTERFACE SYSTEM Refer to clinic/hospital department [facility] CLIA# [id number] [address] [place] [address] * URINALYSIS WITH REFLEX CULTURE (06/22/2008 4:18 AM CDT) URINE CULTURE ORDER Culture ordered [facility] Comment: Criteria for a reflex culture [...] ORDERABLES Final Resu lt Performing Organization Address [facility] Phone Number INTERFACE SYSTEM Refer to clinic/hospital department [facility] CLIA# [id number] [address] [place] [address] * HEPATIC FUNCTION PANEL (06/22/2008 4:10 AM CDT) BILIRUBIN DIRECT <0.2 0.0 - 0.3 mg/dL [facility] ALKALINE PHOSPHATASE 67 35 - 104 U/L [facility] TOTAL PROTEIN 7.3 6.0 - 8.3 g/dL [facility] BILIRUBIN TOTAL 0.2 0.2 - 1.0 mg/dL [facility] ALT 20 0 - 31 U/L [facility] AST 27 12 - 32 U/L [facility] ALBUMIN 4.4 3.4 - 4.8 g/dL [facility] Blood specimen (specimen) 06/22/2008 4:10 AM CDT 06/22/2008 4:22 AM CDT us Nikolai Leblanc MD CHEMISTRY ORDERABLES Final Result INTERFACE SYSTEM Refer to clinic/hospital department [facility] CLIA# [id number] [address] [place] [address] * CBC WITH DIFFERENTIAL (06/22/2008 4:10 AM CDT) PLATELETS 253 140 - 350 K/uL [facility] MCV 90.5 82.0 - 99.0 fL [facility] RDW 12.3 11.5 - 14.5 % [facility] HEMOGLOBIN 13.1 11.8 - 14.8 g/dL [facility] MPV 9.7 9.3 - 12.4 fL [facility] WBC 6.5 4.0 - 9.8 K/uL [facility] MCH 30.3 27.2 - 32.6 pg [facility] RDW-STDEV 40.8 37.1 - 48.7 fL [facility] HEMATOCRIT 39.1 35.5 - 44.0 % [facility] MCHC 33.5 31.5 - 35.5 % [facility] RBC 4.32 3.90 - 4.90 M/uL [facility] MONOCYTES 9 3 - 13 % [facility] MONOCYTE ABSOLUTE 0.61 0.10 - 1.30 K/uL [facility] NEUTROPHILS 65 45 - 70 % [facility] NEUTROPHIL ABSOLUTE 4.21 1.90 - 7.00 K/uL [facility] EOSINOPHILS 1 0 - 7 % [facility] EOSINOPHIL ABSOLUTE 0.05 0.00 - 0.70 K/uL [facility] LYMPHOCYTES 25 16 - 45 % [facility] LYMPHOCYTE ABSOLUTE 1.59 0.70 - 4.50 K/uL [facility] BASOPHILS 1 0 - 2 % [facility] BASOPHILS ABSOLUTE 0.03 0.00 - 0.20 K/uL [facility] Blood specimen (specimen) 06/22/2008 4:10 AM CDT 06/22/2008 4:23 AM CDT us Nikolai Leblanc MD HEMATOLOGY ORDERABLES Edite d INTERFACE SYSTEM Refer to clinic/hospital department [facility] CLIA# [id number] [address] [place] [address] * BASIC METABOLIC PANEL (06/22/2008 4:10 AM CDT) POTASSIUM 3.7 3.5 - 4.9 mmol/L [facility] BUN 15 6 - 20 mg/dL [facility] GLUCOSE 97 65 - 99 mg/dL [facility] CHLORIDE 104 96 - 108 mmol/L [facility] CREATININE 0.66 0.51 - 0.95 mg/dL [facility] SODIUM 143 135 - 145 mmol/L [facility] CO2 23 22 - 30 mmol/L [facility] CALCIUM 9.3 8.6 - 10.2 mg/dL [facility] GFR, >60 >=60 mL/min/1.7 sq meter [facility] GFR >60 >=60 mL/min/1.7 sq meter [facility] Comment: Modification of Diet in Renal Disease (MDRD) study formula. Estimated GFR rate interpretative information for both Americans and non- Americans is available on the [facility] Intranet at: [email or web address] Select: Lab Policies and Procedures Select: Reference Ranges - GFR Blood specimen (specimen) 06/22/2008 4:10 AM CDT 06/22/2008 4:22 AM CDT us Nikolai Leblanc MD CHEMISTRY ORDERABLES Edited INTERFACE SYSTEM Refer to clinic/hospital department [facility] CLIA# [id number] [address] [place] [address] documented in this encounter Visit Diagnoses Not on filedocumented in this encounter Care Teams Maintenance Shop Clerk Relationship Specialty Start Date End Date Mike Desouza MD [address] [place] [address] PCP - General 11/02/23 documented as of this encounter
--- OUTSIDE RECORDS SUMMARY | 2025-04-02 11:08 | XMS_ITS | Encounter Summary ---
Author Organization [employer] Address 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 Role Phone Mike Desouza MD Primary Care Provider [phone] Encounter Details Date Type Department Care Team [...] on file Legal Sex Female 2:42 AM PANMAN Gender Identity Not on file Sexual Orientation Not on file documented as of this encounter Plan of Treatment Not on file documented as of this encounter Procedures Procedure Name Priority Date/Time Associated Diagnosis Comments CBC WITH DIFFERENTIAL Routine 10/31/2008 5:35 AM PANMAN MISCELLANEOUS LAB TEST Timed Study 10/30/2008 12:26 PM PANMAN BLEEDING TIME/PLATELET FUNCTION Routine 10/30/2008 6:00 AM PANMAN ABORH TYPING Routine 10/30/2008 5:23 AM PANMAN DIC PROFILE Routine 10/30/2008 5:00 AM PANMAN VON WILLEBRAND FACTOR ANTIGEN Routine 10/30/2008 5:00 AM PANMAN CBC WITH DIFFERENTIAL Routine 10/30/2008 5:00 AM PANMAN FACTOR VIII ASSAY Routine 10/30/2008 5:[address] ABDOMEN PELVIS W CONTRAST Routine 10/29/2008 11:00 AM PANMAN XR ABDOMEN W DECUB AND OR ERECT 2 VW Routine 10/29/2008 10:55 AM PANMAN CBC WITH DIFFERENTIAL Routine 10/29/2008 4:05 AM PANMAN BASIC METABOLIC PANEL Routine 10/29/2008 4:05 AM PANMAN HELICOBACTER PYLORI RAPID UREASE TEST Timed Study 10/28/2008 4:45 PM PANMAN BASIC METABOLIC PANEL Timed Study 10/28/2008 11:[address] CHEST W CONTRAST Routine 10/28/2008 8 :32 AM PANMAN CBC WITH DIFFERENTIAL Routine 10/28/2008 3:40 AM PANMAN CBC WITH DIFFERENTIAL Routine 10/27/2008 6:05 AM PANMAN PHENYTOIN LEVEL, TOTAL Routine 10/27/2008 6:05 AM PANMAN BASIC METABOLIC PANEL Routine 10/27/2008 6:05 AM PANMAN CBC WITH DIFFERENTIAL Routine 10/26/2008 5:10 AM PANMAN MRSA CULTURE Stat 10/25/2008 8:45 PM PANMAN XR ABDOMEN ACUTE SERIES W CXR Stat 10/25/2008 7:10 PM PANMAN CBC WITH DIFFERENTIAL Stat 10/25/2008 6:40 PM PANMAN LIPASE Stat 10/25/2008 6:40 PM PANMAN HEPATIC FUNCTION PANEL Stat 10/25/2008 6:40 PM PANMAN BASIC METABOLIC PANEL Stat 10/25/2008 6:40 PM PANMAN URINALYSIS WITH REFLEX CULTURE Stat 10/25/2008 6:05 PM PANMAN DRUG SCREEN, URINE Stat 10/25/2008 6: 05 PM PANMAN URINALYSIS W/REFLEX MICROSCOPIC Stat 10/25/2008 6:05 PM PANMAN URINE CULTURE Stat 10/25/2008 6:05 PM PANMAN HCG QUALITATIVE, URINE Stat 10/25/2008 6:05 PM PANMAN documented in this encounter Results * CBC WITH DIFFERENTIAL (10/31/2008 5:35 AM PANMAN) MPV 9.5 9.3 - 12.4 fL [facility] MCH 30.6 27.2 - 32.6 pg [facility] HEMATOCRIT 37.6 35.5 - 44.0 % [facility] RDW-STDEV 41.4 37.1 - 48.7 fL [facility] RBC 4.09 3.90 - 4.90 M/uL [facility] MCHC 33.2 31.5 - 35.5 % [facility] MCV 91.9 82.0 - 99.0 fL [facility] PLATELETS 256 140 - 350 K/uL [facility] HEMOGLOBIN 12.5 11.8 - 14.8 g/dL [facility] RDW 12.3 11.5 - 14.5 % [facility] WBC 4.5 4.0 - 9.8 K/uL [facility] NEUTROPHIL ABSOLUTE 2.30 1.90 - 7.00 K/uL [facility] NEUTROPHILS 51 45 - 70 % [facility] EOSINOPHILS 6 0 - 7 % [facility] EOSINOPHIL ABSOLUTE 0.26 0.00 - 0.70 K/uL [facility] LYMPHOCYTES 30 16 - 45 % [facility] LYMPHOCYTE ABSOLUTE 1.34 0.70 - 4.50 K/uL [facility] BASOPHILS 1 0 - 2 % [facility] BASOPHILS ABSOLUTE 0.03 0.00 - 0.20 K/uL [facility] MONOCYTES 12 3 - 13 % [facility] MONOCYTE ABSOLUTE 0.55 0.10 - 1.30 K/uL [facility] Blood specimen (specimen) 10/31/2008 5:35 AM PANMAN 10/31/2008 5:44 AM PANMAN us Nikki Slade MD HEMATOLOGY ORDERABLES Edited INTERFACE SYSTEM Refer to clinic/hospital department [facility] CLIA# [id number] [address] [place] [address] * MISCELLANEOUS LAB TEST (10/30/2008 12:26 PM PANMAN) TEST NAME Prolonged PTT Evaluation [facility] SPECIMEN TYPE Blood [facility] MISCELLANEOUS LAB TEST Name [...] Negative DRVVT: LA-DRVVT: Negative Test Performed By: [place], [place]. [facility] Specimen of unknown material (specimen) 10/30/2008 12:26 PM PANMAN 10/30/2008 12:46 PM PANMAN Narrative INTERFACE SYSTEM - 11/06/2008 1:21 PM PANMAN Name of test:prolonged ptt need 4 blue tops us Michelle Dominguez CHEMISTRY ORDERABLES Edited Performing Organization Address [facility] de Phone Number INTERFACE SYSTEM Refer to clinic/hospital department [facility] CLIA# [id number] [address] [place] [address] * BLEEDING TIME (10/30/2008 6:00 AM PANMAN) BLEEDING TIME 4.5 2.5 - 9.5 min [facility] Blood specimen (specimen) 10/30/2008 6:00 AM PANMAN 10/30/2008 6:15 AM PANMAN Narrative INTERFACE SYSTEM - 10/30/2008 6:43 AM PANMAN LAB TO CONDUCT TEST Michelle Dominguez HEMATOLOGY ORDERABLES Final Re sult Performing Organization Address [facility] de Phone Number INTERFACE SYSTEM Refer to clinic/hospital department [facility] CLIA# [id number] [address] [place] [address] * ABORH TYPING (10/30/2008 5:23 AM PANMAN) HISTORY CHECK History Checked [facility] ABO/RH TYPE O Positive [facility] SPECIMEN LIFE 3 days from drawdate [facility] 10/30/2008 5:23 AM PANMAN Nikki Slade MD BLOOD BANK ORDERABLES Edited Performing Organization Address [facility] de Phone Number INTERFACE SYSTEM Refer to clinic/hospital department [facility] CLIA# [id number] [address] [place] [address] * VON WILLEBRAND FACTOR ANTIGEN (10/30/2008 5:00 AM PANMAN) VW FACTOR AG 81 U/dL [facility] Comment: Reference values for Von Willebrand Factor Antigen are blood group specific. Reference range for Blood Groups: O is 50 - 170 U/dL A is 60 - 260 U/dL B or AB is 90 - 280 U/dL Performed by [facility] [place], [place]. Blood specimen (specimen) 10/30/2008 5:00 AM PANMAN 10/30/2008 5:23 AM PANMAN Narrative INTERFACE SYSTEM - 11/05/2008 6:44 AM PANMAN Pt. on Heparin/Coumadin(which)? Nikki Slade MD HEMATOLOGY ORDERABLES Final Re sult Performing Organization Address [facility] Co de Phone Number INTERFACE SYSTEM Refer to clinic/hospital department [facility] CLIA# [id number] [address] [place] [address] * FACTOR VIII ASSAY (10/30/2008 5:00 AM PANMAN) FACTOR VIII ASSAY 87 U/dL [facility] Comment: Factor VIII Activity reference values are blood group specific Reference range for Blood Group O is 45 - 180 U/dL A is 60 - 200 U/dL B or AB is 80 - 225 U/dL Reference ranges apply only to patients >6 months of age. Performed by [facility] [place]. Blood specimen (specimen) 10/30/2008 5:00 AM PANMAN 10/30/2008 5:23 AM PANMAN Nikki Slade MD HEMATOLOGY ORDERABLES Final Re sult INTERFACE SYSTEM Refer to clinic/hospital department [facility] CLIA# [id number] [address] [place] [address] * (ABNORMAL) DIC PROFILE (10/30/2008 5:00 AM PANMAN) INR 0.9 0.9 - 1.1 [facility] Comment: INR Therapeutic Range: Adult: 2.0 - 3.0 for pulmonary embolism or prophylaxis against venous thrombosis or systemic embolization. 2.0 - 3.0 for patients with tissue heart valves. 2.5 - 3.5 for patients with mechanical heart valves or post MT. Pediatric (12 years and under): 1.5 - 3.0 Although the target range in children is not well established, INR values of 1.5 - 3.0 are recommended for most patients. Higher values have been used in children with prosthetic cardiac valves and hereditary clotting disorders. (<3 days) therapeutic ranges have not been established. D.DIMER (CALC) 115 <=210 ng/mL [facility] PTT 40.2(H) 21.1 - 34.8 Seconds [facility] D-DIMER QUANT 0.23 <=0.42 ug/mL FEU [facility] Comment: DVT Screen reference range <0.45 [...] stratification. PROTIME 12.8 12.4 - 14.7 Seconds [facility] FIBRINOGEN 351 207 - 510 mg/dL [facility] Blood specimen (specimen) 10/30/2008 5:00 AM PANMAN 10/30/2008 5:23 AM PANMAN us Nikki Slade MD HEMATOLOGY ORDERABLES Edited INTERFACE SYSTEM Refer to clinic/hospital department [facility] CLIA# [id number] [address] [place] [address] * CBC WITH DIFFERENTIAL (10/30/2008 5:00 AM PANMAN) HEMOGLOBIN 12.2 11.8 - 14.8 g/dL [facility] MCH 30.8 27.2 - 32.6 pg [facility] MPV 9.6 9.3 - 12.4 fL [facility] WBC 5.0 4.0 - 9.8 K/uL [facility] PLATELETS 250 140 - 350 K/uL [facility] HEMATOCRIT 36.2 35.5 - 44.0 % [facility] RDW-STDEV 40.4 37.1 - 48.7 fL [facility] RBC 3.96 3.90 - 4.90 M/uL [facility] RDW 12.1 11.5 - 14.5 % [facility] MCV 91.4 82.0 - 99.0 fL [facility] MCHC 33.7 31.5 - 35.5 % [facility] MONOCYTE ABSOLUTE 0.43 0.10 - 1.30 K/uL [facility] NEUTROPHILS 58 45 - 70 % [facility] NEUTROPHIL ABSOLUTE 2.90 1.90 - 7.00 K/uL [facility] EOSINOPHILS 5 0 - 7 % [facility] EOSINOPHIL ABSOLUTE 0.23 0.00 - 0.70 K/uL [facility] LYMPHOCYTES 29 16 - 45 % [facility] LYMPHOCYTE ABSOLUTE 1.43 0.70 - 4.50 K/uL [facility] BASOPHILS 0 0 - 2 % [facility] BASOPHILS ABSOLUTE 0.02 0.00 - 0.20 K/uL [facility] MONOCYTES 9 3 - 13 % [facility] Blood specimen (specimen) 10/30/2008 5:00 AM PANMAN 10/30/2008 5:23 AM PANMAN us Nikki Slade MD HEMATOLOGY ORDERABLES Edited INTERFACE SYSTEM Refer to clinic/hospital department [facility] CLIA# [id number] [address] [place] [address] * CT ABDOMEN PELVIS W CONTRAST (10/29/2008 11:00 AM PANMAN) Anatomical Region Laterality Modality Abdomen Other 10/29/2008 11:0 0 AM PANMAN Narrative 10/30/2008 4:13 PM PANMAN [place] [address] Admit Date: 10/25/2008 DENIA RAY Sex: F Admit Prov: NIKKI SLADE Date: 1975 Primary Care Prov: PCP , NONE CMRN: [id number] Room: [place] [address] SSN: [id number] IMAGING SERVICES Ordering Prov: N/A Accession Number: [id number] Interpretation CT ABDOMEN AND PELVIS WITH IV [...] AMK Procedure Note Katie Goodrich - 10/30/[address] [address] Admit Date: 10/25/2008 DENIA RAY Sex: F Admit Prov: NIKKI SLADE Date: 1975 Primary Care Prov: PCP , NONE CMRN: [id number] Room: [place] [address] SSN: [id number] IMAGING SERVICES Ordering Prov: N/A Interpretation CT [...] DECUB AND OR ERECT (10/29/2008 10:55 AM PANMAN) Anatomical Region Laterality Modality Abdomen Other 10/29/2008 10:5 5 AM PANMAN Narrative 10/29/2008 2:26 PM PANMAN [address] [address] Admit Date: 10/25/2008 DENIA RAY Sex: F Admit Prov: NIKKI SLADE Date: 1975 Primary Care Prov: PCP , NONE CMRN: [id number] Room: [place] [address] SSN: [id number] IMAGING SERVICES Ordering Prov: N/A Accession Number: [id number] Interpretation OBSTRUCTION SERIES WITHOUT CHEST X-RAY 10/29/2008 [...] Procedure Note Brennen Trinidad DO - 10/29/[address] [address] Admit Date: 10/25/2008 DENIA RAY Sex: F Admit Prov: NIKKI SLADE Date: 1975 Primary Care Prov: PCP , NONE CMRN: [id number] Room: [place] [address] 02 SSN: [id number] IMAGING SERVICES Ordering Prov: N/A Interpretation OBSTRUCTION [...] * CBC WITH DIFFERENTIAL (10/29/2008 4:05 AM PANMAN) WBC 4.3 4.0 - 9.8 K/uL [facility] MPV 9.4 9.3 - 12.4 fL [facility] MCH 30.4 27.2 - 32.6 pg [facility] HEMATOCRIT 36.3 35.5 - 44.0 % [facility] RDW-STDEV 41.2 37.1 - 48.7 fL [facility] RBC 3.91 3.90 - 4.90 M/uL [facility] MCHC 32.8 31.5 - 35.5 % [facility] MCV 92.8 82.0 - 99.0 fL [facility] PLATELETS 243 140 - 350 K/uL [facility] HEMOGLOBIN 11.9 11.8 - 14.8 g/dL [facility] RDW 12.2 11.5 - 14.5 % [facility] NEUTROPHILS 52 45 - 70 % [facility] NEUTROPHIL ABSOLUTE 2.22 1.90 - 7.00 K/uL [facility] EOSINOPHILS 5 0 - 7 % [facility] EOSINOPHIL ABSOLUTE 0.23 0.00 - 0.70 K/uL [facility] LYMPHOCYTES 34 16 - 45 % [facility] LYMPHOCYTE ABSOLUTE 1.47 0.70 - 4.50 K/uL [facility] BASOPHILS 1 0 - 2 % [facility] BASOPHILS ABSOLUTE 0.02 0.00 - 0.20 K/uL [facility] MONOCYTES 8 3 - 13 % [facility] MONOCYTE ABSOLUTE 0.33 0.10 - 1.30 K/uL [facility] Blood specimen (specimen) 10/29/2008 4:05 AM PANMAN 10/29/2008 4:11 AM PANMAN Nikki Slade MD HEMATOLOGY ORDERABLES Edited INTERFACE SYSTEM Refer to clinic/hospital department [facility] CLIA# [id number] [address] [place] [address] * BASIC METABOLIC PANEL (10/29/2008 4:05 AM PANMAN) CHLORIDE 101 96 - 108 mmol/L [facility] BUN 6 6 - 20 mg/dL [facility] CREATININE 0.67 0.51 - 0.95 mg/dL [facility] SODIUM 135 135 - 145 mmol/L [facility] CO2 29 22 - 30 mmol/L [facility] CALCIUM 9.1 8.6 - 10.2 mg/dL [facility] POTASSIUM 4.5 3.5 - 4.9 mmol/L [facility] GLUCOSE 92 65 - 99 mg/dL [facility] GFR, >60 >=60 mL/min/1.7 sq meter [facility] GFR >60 >=60 mL/min/1.7 sq meter [facility] Comment: Modification of Diet in Renal Disease (MDRD) study formula. Estimated GFR rate interpretative information for both Americans and non- Americans is available on the [facility] Intranet at: [email or web address] Select: Lab Policies and Procedures Select: Reference Ranges - GFR Blood specimen (specimen) 10/29/2008 4:05 AM PANMAN 10/29/2008 4:11 AM PANMAN us Nikki Slade MD CHEMISTRY ORDERABLES Edited Performing Organization Address City/[facility] Co de Phone Number INTERFACE SYSTEM Refer to clinic/hospital department [facility] CLIA# [id number] [address] [place] [address] * HELICOBACTER PYLORI RAPID UREASE TEST (10/28/2008 4:45 PM PANMAN) H. PYLORI RAPID UREASE TEST Negative Negative [facility] Tissue specimen (specimen) 10/28/2008 4:45 PM PANMAN 10/28/2008 7:23 PM PANMAN us Dino Wharton MD MICROBIOLOGY - GENERAL ORDERABLE S Final Result Performing Organization Address [facility] de Phone Number INTERFACE SYSTEM Refer to clinic/hospital department [facility] CLIA# [id number] [address] [place] [address] * (ABNORMAL) BASIC METABOLIC PANEL (10/28/2008 11:05 AM PANMAN) SODIUM 136 135 - 145 mmol/L [facility] CO2 30 22 - 30 mmol/L [facility] POTASSIUM 3.4(L) 3.5 - 4.9 mmol/L [facility] CALCIUM 9.2 8.6 - 10.2 mg/dL [facility] GLUCOSE 86 65 - 99 mg/dL [facility] BUN 5(L) 6 - 20 mg/dL [facility] CHLORIDE 101 96 - 108 mmol/L [facility] CREATININE 0.64 0.51 - 0.95 mg/dL [facility] GFR, >60 >=60 mL/min/1. 7 sq meter [facility] GFR >60 >=60 mL/min/1. 7 sq meter [facility] Comment: Modification of Diet in Renal Disease (MDRD) study formula. Estimated GFR rate interpretative information for both Americans and non- Americans is available on the [facility] Intranet at: [email or web address] Select: Lab Policies and Procedures Select: Reference Ranges - GFR Blood specimen (specimen) 10/28/2008 11:05 AM PANMAN 10/28/2008 11:11 AM PANMAN Nikki Slade MD CHEMISTRY ORDERABLES Edited Performing Organization Address City/State/[facility] Co de Phone Number INTERFACE SYSTEM Refer to clinic/hospital department [facility] CLIA# [id number] [address] [place] [address] * CT CHEST W CONTRAST (10/28/2008 8:32 AM PANMAN) Anatomical Region Laterality Modality Chest Other 10/28/2008 8:32 AM PANMAN Narrative 10/28/2008 9:07 AM PANMAN [address] [address] Admit Date: 10/25/2008 DENIA RAY Sex: F Admit Prov: NIKKI SLADE Date: 1975 Primary Care Prov: PCP , NONE CMRN: [id number] Room: [place] [address] 02 SSN: [id number] IMAGING SERVICES Ordering Prov: N/A Accession Number: [id number] Interpretation CT chest with contrast Oct 28, [...] 09:06 Procedure Note Keon Brothers - 10/28/[address] [address] Admit Date: 10/25/2008 DENIA RAY Sex: F Admit Prov: NIKKI SLADE Date: 1975 Primary Care Prov: PCP , NONE CMRN: [id number] Room: [place] [address] SSN: [id number] IMAGING SERVICES Ordering Prov: N/A Interpretation CT [...] (ABNORMAL) CBC WITH DIFFERENTIAL (10/28/2008 3:40 AM PANMAN) MCHC 32.4 31.5 - 35.5 % [facility] PLATELETS 242 140 - 350 K/uL [facility] MCV 93.4 82.0 - 99.0 fL [facility] HEMOGLOBIN 11.5(L) 11.8 - 14.8 g/dL [facility] RDW 12.1 11.5 - 14.5 % [facility] WBC 4.8 4.0 - 9.8 K/uL [facility] MCH 30.3 27.2 - 32.6 pg [facility] MPV 9.6 9.3 - 12.4 fL [facility] HEMATOCRIT 35.5 35.5 - 44.0 % [facility] RDW-STDEV 41.1 37.1 - 48.7 fL [facility] RBC 3.80(L) 3.90 - 4.90 M/uL [facility] BASOPHILS 1 0 - 2 % [facility] BASOPHILS ABSOLUTE 0.03 0.00 - 0.20 K/uL [facility] MONOCYTES 10 3 - 13 % [facility] MONOCYTE ABSOLUTE 0.48 0.10 - 1.30 K/uL [facility] NEUTROPHILS 43(L) 45 - 70 % [facility] NEUTROPHIL ABSOLUTE 2.02 1.90 - 7.00 K/uL [facility] EOSINOPHILS 4 0 - 7 % [facility] EOSINOPHIL ABSOLUTE 0.20 0.00 - 0.70 K/uL [facility] LYMPHOCYTES 43 16 - 45 % [facility] LYMPHOCYTE ABSOLUTE 2.03 0.70 - 4.50 K/uL [facility] Blood specimen (specimen) 10/28/2008 3:40 AM PANMAN 10/28/2008 4:03 AM PANMAN Nikki Slade MD HEMATOLOGY ORDERABLES Edited Performing Organization Address [facility] de Phone Number INTERFACE SYSTEM Refer to clinic/hospital department [facility] CLIA# [id number] [address] [place] [address] * (ABNORMAL) PHENYTOIN LEVEL, TOTAL (10/27/2008 6:05 AM PANMAN) Pathologist [facility] PHENYTOIN TOTAL 1.8(L) 10.0 - 20.0 ug/mL [facility] Comment:NOTE: New methodolog y; effective 01/08/08. Blood specimen (specimen) 10/27/2008 6:05 AM PANMAN 10/27/2008 6:12 AM PANMAN Nikki Slade MD CHEMISTRY ORDERABLES Final Res ult Performing Organization Address [facility] de Phone Number INTERFACE SYSTEM Refer to clinic/hospital department [facility] CLIA# [id number] [address] [place] [address] * (ABNORMAL) BASIC METABOLIC PANEL (10/27/2008 6:05 AM PANMAN) POTASSIUM 3.0(L) 3.5 - 4.9 mmol/L [facility] BUN 10 6 - 20 mg/dL [facility] GLUCOSE 99 65 - 99 mg/dL [facility] CHLORIDE 99 96 - 108 mmol/L [facility] SODIUM 136 135 - 145 mmol/L [facility] CREATININE 0.68 0.51 - 0.95 mg/dL [facility] CO2 33(H) 22 - 30 mmol/L [facility] CALCIUM 8.7 8.6 - 10.2 mg/dL [facility] GFR, >60 >=60 mL/min/1. 7 sq meter [facility] GFR >60 >=60 mL/min/1. 7 sq meter [facility] Comment: Modification of Diet in Renal Disease (MDRD) study formula. Estimated GFR rate interpretative information for both Americans and non- Americans is available on the [facility] Intranet at: [email or web address] Select: Lab Policies and Procedures Select: Reference Ranges - GFR Blood specimen (specimen) 10/27/2008 6:05 AM PANMAN 10/27/2008 6:12 AM PANMAN Nikki Slade MD CHEMISTRY ORDERABLES Edited INTERFACE SYSTEM Refer to clinic/hospital department [facility] CLIA# [id number] [address] [place] [address] * (ABNORMAL) CBC WITH DIFFERENTIAL (10/27/2008 6:05 AM PANMAN) MCV 91.9 82.0 - 99.0 fL [facility] PLATELETS 210 140 - 350 K/uL [facility] HEMOGLOBIN 10.7(L) 11.8 - 14.8 g/dL [facility] RDW 12.1 11.5 - 14.5 % [facility] WBC 4.7 4.0 - 9.8 K/uL [facility] MPV 9.6 9.3 - 12.4 fL [facility] MCH 29.7 27.2 - 32.6 pg [facility] HEMATOCRIT 33.1(L) 35.5 - 44.0 % [facility] RDW-STDEV 41.1 37.1 - 48.7 fL [facility] RBC 3.60(L) 3.90 - 4.90 M/uL [facility] MCHC 32.3 31.5 - 35.5 % [facility] LYMPHOCYTE ABSOLUTE 1.55 0.70 - 4.50 K/uL [facility] BASOPHILS 0 0 - 2 % [facility] BASOPHILS ABSOLUTE 0.02 0.00 - 0.20 K/uL [facility] MONOCYTES 10 3 - 13 % [facility] MONOCYTE ABSOLUTE 0.47 0.10 - 1.30 K/uL [facility] [facility] NEUTROPHILS 51 45 - 70 % [facility] NEUTROPHIL ABSOLUTE 2.38 1.90 - 7.00 K/uL [facility] EOSINOPHILS 5 0 - 7 % [facility] EOSINOPHIL ABSOLUTE 0.24 0.00 - 0.70 K/uL [facility] LYMPHOCYTES 33 16 - 45 % [facility] Blood specimen (specimen) 10/27/2008 6:05 AM PANMAN 10/27/2008 6:12 AM PANMAN Nikki Slade MD HEMATOLOGY ORDERABLES Edited INTERFACE SYSTEM Refer to clinic/hospital department [facility] CLIA# [id number] [address] [place] [address] * (ABNORMAL) CBC WITH DIFFERENTIAL (10/26/2008 5:10 AM PANMAN) MPV 9.5 9.3 - 12.4 fL [facility] MCH 29.7 27.2 - 32.6 pg [facility] HEMATOCRIT 36.4 35.5 - 44.0 % [facility] RDW-STDEV 41.9 37.1 - 48.7 fL [facility] RBC 3.94 3.90 - 4.90 M/uL [facility] MCHC 32.1 31.5 - 35.5 % [facility] MCV 92.4 82.0 - 99.0 fL [facility] PLATELETS 235 140 - 350 K/uL [facility] HEMOGLOBIN 11.7(L) 11.8 - 14.8 g/dL [facility] RDW 12.3 11.5 - 14.5 % [facility] WBC 3.9(L) 4.0 - 9.8 K/uL [facility] EOSINOPHILS 5 0 - 7 % [facility] EOSINOPHIL ABSOLUTE 0.20 0.00 - 0.70 K/uL [facility] LYMPHOCYTES 46(H) 16 - 45 % [facility] LYMPHOCYTE ABSOLUTE 1.82 0.70 - 4.50 K/uL [facility] BASOPHILS 1 0 - 2 % [facility] BASOPHILS ABSOLUTE 0.02 0.00 - 0.20 K/uL [facility] MONOCYTES 13 3 - 13 % [facility] MONOCYTE ABSOLUTE 0.50 0.10 - 1.30 K/uL [facility] NEUTROPHILS 36(L) 45 - 70 % [facility] NEUTROPHIL ABSOLUTE 1.40(L) 1.90 - 7.00 K/uL [facility] Blood specimen (specimen) 10/26/2008 5:10 AM PANMAN 10/26/2008 5:15 AM PANMAN Nikki Slade MD HEMATOLOGY ORDERABLES Edited Performing Organization Address City/[facility] Co de Phone Number INTERFACE SYSTEM Refer to clinic/hospital department [facility] CLIA# [id number] [address] [place] [address] * MRSA CULTURE (10/25/2008 8:45 PM PANMAN) PRELIMINARY REPORT Pending [facility] FINAL REPORT No methicillin resistant Staphylococcus aureus isolated. [facility] Gabe 10/25/2008 8:45 PM PANMAN 10/25/2008 8:56 PM PANMAN Narrative INTERFACE SYSTEM - 10/27/2008 7:55 AM PANMAN er 14 Kishan Rondon MD MICROBIOLOGY - GENERAL ORDERABL ES Final Result INTERFACE SYSTEM Refer to clinic/hospital department [facility] CLIA# [id number] [address] [place] [address] * XR ABDOMEN ACUTE SERIES W CXR (10/25/2008 7:10 PM PANMAN) Anatomical Region Laterality Modality Abdomen Other 10/25/2008 7:10 PM PANMAN Narrative 10/26/2008 11:10 AM PANMAN [address] [address] Admit Date: 10/25/2008 DENIA RAY Sex: F Admit Prov: NIKKI SLADE Date: 1975 Primary Care Prov: PCP , NONE CMRN: [id number] Room: [place] [address] SSN: [id number] IMAGING SERVICES Ordering Prov: N/A Accession Number: [id number] Interpretation OBSTRUCTION SERIES WITH CHEST 3 PROJECTIONS, [...] LE Procedure Note Provider, Historical - 10/26/[address] [address] Admit Date: 10/25/2008 DENIA RAY Sex: F Admit Prov: NIKKI SLADE Date: 1975 Primary Care Prov: PCP , NONE CMRN: [id number] Room: [place] [address] SSN: [id number] IMAGING SERVICES Ordering Prov: N/A Interpretation OBSTRUCTION [...] * CBC WITH DIFFERENTIAL (10/25/2008 6:40 PM PANMAN) RBC 4.19 3.90 - 4.90 M/uL [facility] MCHC 33.3 31.5 - 35.5 % [facility] MCV 90.9 82.0 - 99.0 fL [facility] PLATELETS 251 140 - 350 K/uL [facility] HEMOGLOBIN 12.7 11.8 - 14.8 g/dL [facility] RDW 12.4 11.5 - 14.5 % [facility] WBC 4.6 4.0 - 9.8 K/uL [facility] MPV 9.8 9.3 - 12.4 fL [facility] MCH 30.3 27.2 - 32.6 pg [facility] HEMATOCRIT 38.1 35.5 - 44.0 % [facility] RDW-STDEV 40.8 37.1 - 48.7 fL [facility] BASOPHILS 0 0 - 2 % [facility] BASOPHILS ABSOLUTE 0.02 0.00 - 0.20 K/uL [facility] MONOCYTES 9 3 - 13 % [facility] MONOCYTE ABSOLUTE 0.42 0.10 - 1.30 K/uL [facility] NEUTROPHILS 58 45 - 70 % [facility] NEUTROPHIL ABSOLUTE 2.64 1.90 - 7.00 K/uL [facility] EOSINOPHILS 2 0 - 7 % [facility] EOSINOPHIL ABSOLUTE 0.10 0.00 - 0.70 K/uL [facility] LYMPHOCYTES 31 16 - 45 % [facility] LYMPHOCYTE ABSOLUTE 1.40 0.70 - 4.50 K/uL [facility] Blood specimen (specimen) 10/25/2008 6:40 PM PANMAN 10/25/2008 6:53 PM PANMAN Kishan Rondon MD HEMATOLOGY ORDERABLES Edited Performing Organization Address City/[facility] de Phone Number INTERFACE SYSTEM Refer to clinic/hospital department [facility] CLIA# [id number] [address] [place] [address] * HEPATIC FUNCTION PANEL (10/25/2008 6:40 PM PANMAN) BILIRUBIN DIRECT <0.2 0.0 - 0.3 mg/dL [facility] ALKALINE PHOSPHATASE 63 35 - 104 U/L [facility] TOTAL PROTEIN 7.3 6.0 - 8.3 g/dL [facility] BILIRUBIN TOTAL 0.3 0.2 - 1.0 mg/dL [facility] ALT 17 0 - 31 U/L [facility] ALBUMIN 4.4 3.4 - 4.8 g/dL [facility] AST 18 12 - 32 U/L [facility] Blood specimen (specimen) 10/25/2008 6:40 PM PANMAN 10/25/2008 6:53 PM PANMAN Kishan Rondon MD CHEMISTRY ORDERABLES Final Resu lt Performing Organization Address City/[facility] de Phone Number INTERFACE SYSTEM Refer to clinic/hospital department [facility] CLIA# [id number] [address] [place] [address] * LIPASE (10/25/2008 6:40 PM PANMAN) LIPASE 17 13 - 60 U/L [facility] Blood specimen (specimen) 10/25/2008 6:40 PM PANMAN 10/25/2008 6:53 PM PANMAN Kishan Rondon MD CHEMISTRY ORDERABLES Final Resu lt INTERFACE SYSTEM Refer to clinic/hospital department [facility] CLIA# [id number] [address] [place] [address] * (ABNORMAL) BASIC METABOLIC PANEL (10/25/2008 6:40 PM PANMAN) CO2 25 22 - 30 mmol/L [facility] CALCIUM 9.5 8.6 - 10.2 mg/dL [facility] POTASSIUM 3.4(L) 3.5 - 4.9 mmol/L [facility] GLUCOSE 97 65 - 99 mg/dL [facility] CHLORIDE 105 96 - 108 mmol/L [facility] BUN 15 6 - 20 mg/dL [facility] CREATININE 0.57 0.51 - 0.95 mg/dL [facility] SODIUM 138 135 - 145 mmol/L [facility] GFR, >60 >=60 mL/min/1. 7 sq meter [facility] GFR >60 >=60 mL/min/1. 7 sq meter [facility] Comment: Modification of Diet in Renal Disease (MDRD) study formula. Estimated GFR rate interpretative information for both Americans and non- Americans is available on the [facility] Intranet at: [email or web address] Select: Lab Policies and Procedures Select: Reference Ranges - GFR Blood specimen (specimen) 10/25/2008 6:40 PM PANMAN 10/25/2008 6:53 PM PANMAN Kishan Rondon MD CHEMISTRY ORDERABLES Edited Performing Organization Address [facility] Co de Phone Number INTERFACE SYSTEM Refer to clinic/hospital department [facility] CLIA# [id number] [address] [place] [address] * DRUG SCREEN, URINE (10/25/2008 6:05 PM PANMAN) COMMENT, TOXICOLOGY See Separate Comment [facility] Comment: The urine sample was not [...] February 21, 2008. AMPHETAMINE QUAL, URINE Negative [facility] BARBITURATE QUAL, URINE Negative [facility] BENZODIAZEPINE QUAL, URINE Presumptive Positive [facility] CANNABINOIDS QUAL, URINE Presumptive Positive [facility] COCAINE QUAL URINE Negative [facility] OPIATE QUAL, URINE Negative [facility] PCP QUAL, URINE Negative [facility] Urine specimen (specimen) 10/25/2008 6:05 PM PANMAN 10/25/2008 7:13 PM PANMAN Kishan Rondon MD URINE ORDERABLES Edited Performing Organization Address City/[facility] Co de Phone Number INTERFACE SYSTEM Refer to clinic/hospital department [facility] CLIA# [id number] [address] [place] [address] * URINE CULTURE (10/25/2008 6:05 PM PANMAN) PRELIMINARY REPORT Pending [facility] FINAL REPORT 10-50,000 colonies/mL Polymicrobial growth consistent with normal urethral anay [facility] 10/25/2008 6:05 PM PANMAN 10/25/2008 8:01 PM PANMAN Kishan Rondon MD MICROBIOLOGY - GENERAL ORDERABL ES Final Result Performing Organization Address City/[facility]/ZIP Co de Phone Number INTERFACE SYSTEM Refer to clinic/hospital department [facility] CLIA# [id number] [address] [place] [address] * (ABNORMAL) URINALYSIS (10/25/2008 6:05 PM PANMAN) CLARITY UA Cloudy(A) Clear [facility] PROTEIN UA Trace(A) Negative [facility] BLOOD UA 4+(A) Negative [facility] LEUKOCYTE ESTERASE UA Negative Negative [facility] UROBILINOGEN UA <1 <1 mg/dL [facility] SPECIFIC GRAVITY UA 1.025 1.001 - 1.035 [facility] GLUCOSE UA Negative Negative [facility] COLOR UA Yellow [facility] NITRITE UA Negative Negative [facility] BILIRUBIN UA Negative Negative [facility] PH UA 5.0 5.0 - 8.0 [facility] KETONES UA Negative Negative [facility] BACTERIA UA None Seen None Seen /HPF [facility] WBC UA 0-5 0 - 5 /HPF [facility] EPITHELIAL CELLS, URINE 2-5 /HPF [facility] RBC UA 50-100(A) 0 - 2 /HPF [facility] MUCOUS, URINE 2+ [facility] 10/25/2008 6:05 PM PANMAN 10/25/2008 6:54 PM PANMAN Kishan Rondon MD URINE ORDERABLES Edited Performing Organization Address [facility] de Phone Number INTERFACE SYSTEM Refer to clinic/hospital department [facility] CLIA# [id number] [address] [place] [address] * URINALYSIS WITH REFLEX CULTURE (10/25/2008 6:05 PM PANMAN) URINE CULTURE ORDER Culture ordered [facility] Comment: Criteria for a reflex culture include one or more of the following: Abnormal WBCs, RBCs or bacteria. Lack of qualifying criteria does not exclude the possibility of a urinary tract infection. Dilute urine, drug interference, etc. may decrease the sensitivity of the criteria analytes. Urine specimen (specimen) 10/25/2008 6:05 PM PANMAN 10/25/2008 6:54 PM PANMAN Kishan Rondon MD URINE ORDERABLES Final Result Performing Organization Address [facility] Phone Number INTERFACE SYSTEM Refer to clinic/hospital department [facility] CLIA# [id number] [address] [place] [address] * HCG QUALITATIVE, URINE (10/25/2008 6:05 PM PANMAN) HCG QUAL URINE Negative Negative [facility] SPECIFIC GRAVITY UA 1.025 1.001 - 1.035 [facility] Urine specimen (specimen) 10/25/2008 6:05 PM PANMAN 10/25/2008 6:54 PM PANMAN Kishan Rondon MD URINE ORDERABLES Final Result Performing Organization Address [facility] de Phone Number INTERFACE SYSTEM Refer to clinic/hospital department [facility] CLIA# [id number] [address] [place] [address] documented in this encounter Visit Diagnoses Diagnosis [...] calculi documented in this encounter Care Teams Oil Refinery Operator Relationship Specialty Start Date End Date Mike Desouza MD [address] [place] [address] PCP - General 11/02/23 documented as of this encounter
--- OUTSIDE RECORDS SUMMARY | 2025-04-02 11:08 | XMS_ITS | Encounter Summary ---
Author Organization [employer] Address [address] [place] [address] Care Team Providers Care Comprehensive Ophthalmologist Name Role Phone Mike Desouza MD Primary Care Provider [phone] Encounter Details Date Type Department Care Team (Late st Contact Info) Description 10/14/2008 Outpatient Historical [facility] Er, Authorized P NO ADDRESS ON FILE Malcolm Martin MD [address] [place] [id number] Social History Tobacco Use Types Packs/Day Years Used Date Smoking Tobacco: Never Assessed Comments Unknown Sex and Gender Information Value Date Recorded Sex Assigned at Not on file Legal Sex Female 2:42 AM BUSINESS MGR Gender Identity Not on file Sexual Orientation Not on file documented as of this encounter Plan of Treatment Not on file documented as of this encounter Procedures Procedure Name Priority Date/Time Associated Diagnosis Comments CBC WITH DIFFERENTIAL Routine 10/15/2008 6:45 AM BUSINESS MGR URINALYSIS WITH REFLEX CULTURE Stat 10/15/2008 3:53 AM BUSINESS MGR URINALYSIS W/REFLEX MICROSCOPIC Stat 10/15/2008 3:53 AM BUSINESS MGR URINE CULTURE Stat 10/15/2008 3:53 AM BUSINESS MGR PROTIME-INR Stat 10/15/2008 3:30 AM BUSINESS MGR TYPE AND SCREEN Routine 10/15/2008 2:06 AM BUSINESS MGR XR CHEST PA AND LATERAL 2 VW Stat 10/15/2008 12:58 AM BUSINESS MGR CBC WITH DIFFERENTIAL Stat 10/15/2008 12:32 AM BUSINESS MGR documented in this encounter Results * (ABNORMAL) CBC WITH DIFFERENTIAL (10/15/2008 6:45 AM BUSINESS MGR) HEMATOCRIT 33.0(L) 35.5 - 44.0 % [facility] RDW-STDEV 42.9 37.1 - 48.7 fL [facility] RBC 3.54(L) 3.90 - 4.90 M/uL [facility] MCHC 32.4 31.5 - 35.5 % [facility] MCV 93.2 82.0 - 99.0 fL [facility] PLATELETS 220 140 - 350 K/uL [facility] HEMOGLOBIN 10.7(L) 11.8 - 14.8 g/dL [facility] RDW 12.6 11.5 - 14.5 % [facility] WBC 4.8 4.0 - 9.8 K/uL [facility] MPV 9.4 9.3 - 12.4 fL [facility] MCH 30.2 27.2 - 32.6 pg [facility] LYMPHOCYTES 44 16 - 45 % [facility] LYMPHOCYTE ABSOLUTE 2.11 0.70 - 4.50 K/uL [facility] BASOPHILS 0 0 - 2 % [facility] BASOPHILS ABSOLUTE 0.02 0.00 - 0.20 K/uL [facility] MONOCYTES 8 3 - 13 % [facility] MONOCYTE ABSOLUTE 0.36 0.10 - 1.30 K/uL [facility] NEUTROPHILS 41(L) 45 - 70 % [facility] NEUTROPHIL ABSOLUTE 1.98 1.90 - 7.00 K/uL [facility] EOSINOPHILS 7 0 - 7 % [facility] EOSINOPHIL ABSOLUTE 0.32 0.00 - 0.70 K/uL [facility] Blood specimen (specimen) 10/15/2008 6:45 AM BUSINESS MGR 10/15/2008 6:53 AM BUSINESS MGR Malcolm Martin MD HEMATOLOGY ORDERABLES Edit ed Performing Organization Address [facility] de Phone Number INTERFACE SYSTEM Refer to clinic/hospital department [facility] CLIA# [id number] [address] [place] [address] * URINE CULTURE (10/15/2008 3:53 AM BUSINESS MGR) [facility] PRELIMINARY REPORT No growth [facility] FINAL REPORT No growth [facility] 10/15/2008 3:53 AM BUSINESS MGR 10/15/2008 4:16 AM BUSINESS MGR us Dustin Gallardo MD MICROBIOLOGY - GENERAL ORDER DAYANARA Final Result Performing Organization Address [facility] Phone Number INTERFACE SYSTEM Refer to clinic/hospital department [facility] CLIA# [id number] [address] [place] [address] * (ABNORMAL) URINALYSIS (10/15/2008 3:53 AM BUSINESS MGR) Pathologist [facility] BLOOD UA 4+(A) Negative [facility] PROTEIN UA Trace(A) Negative [facility] LEUKOCYTE ESTERASE UA Negative Negative [facility] UROBILINOGEN UA <1 <1 mg/dL [facility] SPECIFIC GRAVITY UA 1.025 1.001 - 1.035 [facility] GLUCOSE UA Negative Negative [facility] COLOR UA Yellow [facility] NITRITE UA Negative Negative [facility] BILIRUBIN UA Negative Negative [facility] PH UA 6.0 5.0 - 8.0 [facility] KETONES UA Negative Negative [facility] CLARITY UA Slt. Cloudy(A) Clear [facility] EPITHELIAL CELLS, URINE 0-2 /HPF [facility] MUCOUS, URINE 4+ [facility] RBC UA Many(A) 0 - 2 /HPF [facility] BACTERIA UA None Seen None Seen /HPF [facility] WBC UA 0-5 0 - 5 /HPF [facility] 10/15/2008 3:53 AM BUSINESS MGR 10/15/2008 3:58 AM BUSINESS MGR us Dustin Gallardo MD URINE ORDERABLES Edited Performing Organization Address [facility] Phone Number INTERFACE SYSTEM Refer to clinic/hospital department [facility] CLIA# [id number] [address] [place] [address] * URINALYSIS WITH REFLEX CULTURE (10/15/2008 3:53 AM BUSINESS MGR) Pathologist [facility] URINE CULTURE ORDER Culture ordered [facility] Comment: Criteria for a reflex culture include one or more of the following: Abnormal WBCs, RBCs or bacteria. Lack of qualifying criteria does not exclude the possibility of a urinary tract infection. Dilute urine, drug interference, etc. may decrease the sensitivity of the criteria analytes. Urine specimen (specimen) 10/15/2008 3:53 AM BUSINESS MGR 10/15/2008 3:58 AM BUSINESS MGR us Dustin Gallardo MD URINE ORDERABLES Final Resul t Performing Organization Address [facility] de Phone Number INTERFACE SYSTEM Refer to clinic/hospital department [facility] CLIA# [id number] [address] [place] [address] * PROTIME-INR (10/15/2008 3:30 AM BUSINESS MGR) INR 1.0 0.9 - 1.1 [facility] Comment: INR Therapeutic Range: Adult: 2.0 - 3.0 for pulmonary embolism or prophylaxis against venous thrombosis or systemic embolization. 2.0 - 3.0 for patients with tissue heart valves. 2.5 - 3.5 for patients with mechanical heart valves or post TN. Pediatric (12 years and under): 1.5 - 3.0 Although the target range in children is not well established, INR values of 1.5 - 3.0 are recommended for most patients. Higher values have been used in children with prosthetic cardiac valves and hereditary clotting disorders. (<3 days) therapeutic ranges have not been established. PROTIME 13.2 12.4 - 14.7 Seconds [facility] Blood specimen (specimen) 10/15/2008 3:30 AM BUSINESS MGR 10/15/2008 3:49 AM BUSINESS MGR us Dustin Gallardo MD HEMATOLOGY ORDERABLES Final Result Performing Organization Address City/[facility] Co de Phone Number INTERFACE SYSTEM Refer to clinic/hospital department [facility] CLIA# [id number] [address] [place] [address] * TYPE AND SCREEN (10/15/2008 2:06 AM BUSINESS MGR) ANTIBODY SCREEN Negative [facility] HISTORY CHECK History Checked [facility] SPECIMEN LIFE 3 days from drawdate [facility] ABO/RH TYPE O Positive [facility] Blood specimen (specimen) 10/15/2008 2:06 AM BUSINESS MGR us Dustin Gallardo MD BLOOD BANK ORDERABLES Edited Performing Organization Address City/[facility] Co de Phone Number INTERFACE SYSTEM Refer to clinic/hospital department [facility] CLIA# [id number] [address] [place] [address] * XR CHEST PA AND LATERAL (10/15/2008 12:58 AM BUSINESS MGR) Anatomical Region Laterality Modality Chest Other 10/15/2008 12:5 8 AM BUSINESS MGR Narrative 10/15/2008 8:00 AM BUSINESS MGR [place] [id number] Admit Date: 10/15/2008 [place] Sex: F Admit Prov: MALCOLM MARTIN Date: 1975 Primary Care Prov: PCP , NONE CMRN: [id number] [address] [id number] IMAGING SERVICES Ordering Prov: N/A Accession Number: [id number] Interpretation CHEST 2 VIEWS 10/15/08 History: Abdominal [...] Procedure Note Brennen Trinidad DO - 10/15/[address] [address] Admit Date: 10/15/2008 [place] Sex: F Admit Prov: MALCOLM MARTIN Date: 1975 Primary Care Prov: PCP , NONE CMRN: [id number] [address] [id number] IMAGING SERVICES Ordering Prov: N/A Interpretation CHEST [...] (ABNORMAL) CBC WITH DIFFERENTIAL (10/15/2008 12:32 AM BUSINESS MGR) RBC 3.81(L) 3.90 - 4.90 M/uL [facility] MCHC 33.1 31.5 - 35.5 % [facility] MCV 91.1 82.0 - 99.0 fL [facility] PLATELETS 261 140 - 350 K/uL [facility] HEMOGLOBIN 11.5(L) 11.8 - 14.8 g/dL [facility] RDW 12.5 11.5 - 14.5 % [facility] WBC 5.3 4.0 - 9.8 K/uL [facility] MPV 9.6 9.3 - 12.4 fL [facility] MCH 30.2 27.2 - 32.6 pg [facility] HEMATOCRIT 34.7(L) 35.5 - 44.0 % [facility] RDW-STDEV 41.2 37.1 - 48.7 fL [facility] LYMPHOCYTES 40 16 - 45 % [facility] LYMPHOCYTE ABSOLUTE 2.12 0.70 - 4.50 K/uL [facility] BASOPHILS 1 0 - 2 % [facility] BASOPHILS ABSOLUTE 0.05 0.00 - 0.20 K/uL [facility] MONOCYTES 9 3 - 13 % [facility] MONOCYTE ABSOLUTE 0.48 0.10 - 1.30 K/uL [facility] NEUTROPHILS 43(L) 45 - 70 % [facility] NEUTROPHIL ABSOLUTE 2.29 1.90 - 7.00 K/uL [facility] EOSINOPHILS 6 0 - 7 % [facility] EOSINOPHIL ABSOLUTE 0.34 0.00 - 0.70 K/uL [facility] Blood specimen (specimen) 10/15/2008 12:32 AM BUSINESS MGR 10/15/2008 12:52 AM BUSINESS MGR us Dustin Gallardo MD HEMATOLOGY ORDERABLES Edited INTERFACE SYSTEM Refer to clinic/hospital department [facility] CLIA# [id number] [address] [place] [address] documented in this encounter Visit Diagnoses Not on filedocumented in this encounter Care Teams Comprehensive Ophthalmologist Relationship Specialty Start Date End Date Mike Desouza MD [address] [place] [id number] PCP - General 11/02/23 documented as of this encounter
--- OUTSIDE RECORDS SUMMARY | 2025-04-02 11:08 | XMS_ITS | Encounter Summary ---
Author Organization [employer] Address [address] [place] [address] Care Team Providers Care Bolt Header Name Role Phone Mike Desouza MD Primary Care Provider [phone] Encounter Details Date Type Department Care Team [...] on file Legal Sex Female 2:42 AM SMASHER Gender Identity Not on file Sexual Orientation Not on file documented as of this encounter Plan of Treatment Not on file documented as of this encounter Visit Diagnoses Diagnosis Other specified complication, antepartum(646.83)- Primary Other specified complication, antepartum documented in this encounter Care Teams Bolt Header Relationship Specialty Start Date End Date Mike Desouza MD [facility] [address] [place] [address] PCP - General 11/02/23 documented as of this encounter
--- OUTSIDE RECORDS SUMMARY | 2025-04-02 11:08 | XMS_ITS | Encounter Summary ---
Author Organization [employer] Address 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
--- OUTSIDE RECORDS SUMMARY | 2025-04-02 11:08 | XMS_ITS | Encounter Summary ---
Author Organization [employer] Address 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
--- OUTSIDE RECORDS SUMMARY | 2025-04-02 11:08 | XMS_ITS | Encounter Summary ---
Author Organization [employer] Address [address] [place] [address] Care Team Providers Care Verifier Name Role Phone Mike Desouza MD Primary Care Provider [phone] Encounter Details Date Type Department Care Team (Latest Contact Info) Description 05/26/1999 Outpatient Historical [facility] Akbar Gautam MD [address] [place] [address] Guillaume Godinez MD NO ADDRESS ON FILE Other specified complication, antepartum(646.83) (Primary Dx) Social History Tobacco Use Types Packs/Day Years Used Date Smoking Tobacco: Never Assessed Comments Unknown Sex and Gender Information Value Date Recorded Sex Assigned at Not on file 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
--- NOTE | 2025-04-02 11:26 | PC.NURSE ---
ERP at bedside discussing plan of care. No kidney stone seen on CT. Pt continues to report pain that is out of proportion to available imaging reports. ERP recommending CT with contrast at this time. Pt agreeable.
--- NOTE | 2025-04-02 11:29 | ECG_ITS ---
Test Date: 2025-04-02 11:44:10 Measurements Intervals [place] Rate: 75 P: 86 NM: 159 QRS: 92 QRSD: 86 T: 86 QT: 360 QTc: 402 Interpretive Statements SINUS RHYTHM BASELINE ARTIFACT- I, II, III, AVR, AVL, AVF, V1-V6 NORMAL ECG No previous ECG available for comparison Electronically Signed On 04-02-2025 11:48:03 CDT by Aidan Meeks D.O.
--- NOTE | 2025-04-02 11:34 | PC.NURSE ---
Pt continues to moan and cry in room. Pt called out saying it feels like something busted. ERP aware and has already told Pt during their previous discussion no more pain meds could be ordered as Pt has already received that max dose he is able to provide at this time. Pt aware that CT is ordered. Pt making frequent trips to restroom independently.
--- NOTE | 2025-04-02 11:43 | PC.NURSE ---
Pt refused to go to CT at this time. Pt states I can't do this again right now! I'm in pain and freaking out! I'm having so much anxiety ERP aware.
[2025-04-02 11:52] LABS: Troponin I < 0.012 ng/mL (0.000-0.034)
--- NOTE | 2025-04-02 11:53 | PC.NURSE ---
Pt pacing around room, states that she wants IV removed. Pt states I might as well leave. I'm in excruciating pain and they want me to lay down for that test and I can't do it!. Pt informed that she will have to sign out AMA if she wishes to leave as all testing has not been completed at this time. Pt verbalized understanding and confirms she wants to leave.
--- NOTE | 2025-04-02 11:56 | PC.NURSE ---
Pt has been slurring words since pain medication was administered, but continues to deny any effective relief. ERP aware of Pt's desire to leave, states she must have a ride due to the amount of medication she was given.
--- NOTE | 2025-04-02 12:03 | PC.NURSE ---
RN and ERP at bedside to discuss options and plan of care. Pt very agitated, pacing around room. Pt repeatedly states I want to get the scan, but I can't lay still. ERP repeated that he cannot order any more pain medication at this time. Pt wants IV removed. Pt states that she is walking home and will not be driving. Pt signed AMA papers. Pt seen leaving ER and walking briskly across the street. Pt no longer holding her abdomen and was not exhibiting any signs of distress after leaving ER.
== END 2025-04-02 12:10 | disposition left against medical advice (07) ==
PROVIDERS: Emergency Provider Emergency Medicine
DX: R10.31 Right lower quadrant pain (principal); F17.210 Nicotine dependence, cigarettes, uncomplicated
CPT/HCPCS: 36415; 74176; 80053; 81001; 83690; 84484; 85025; 85610; 85730; 93005; 96374; 96375; 99284; J1171; J2270; J2550